=== PATIENT | female | born 1945 | race Caucasian/White ===

== ENCOUNTER 2019-08-15 09:11 | Outpatient (CLI) | payer MEDICARE, OTHER, SELFPAY ==
--- NOTE | ~2019-08-15 | MM_ITS ---
EXAMINATION: MM post biopsy invasive LT HISTORY: Status post ultrasound-guided biopsy of 12:00 left breast mass TECHNIQUE: Additional 3-D tomosynthesis images of were performed and synthetic 2-D images were genera bernadette. CAD analysis was submitted and interpreted. COMPARISON: 08/15/2019ultrasound-guided left breast biopsy FINDINGS: A ribbon biopsy marker is noted at the anteroinferior aspect of an approximately 2 cm upper mid left breast mass. IMPRESSION: 1. Ultrasound-guided biopsy of 12:00 left breast mass 2. Sonographic features are highly suggestive of malignancy. Reviewed, dictated and finalized at location A. FIC REPORTER
--- NOTE | ~2019-08-15 | US_ITS ---
EXAMINATION: US GUIDED NEEDLE BIOPSY DATE: 08/15/2019 11:07 COUPON CLERK INDICATION: 12:00 sonographic irregular shadowing left breast mass. TECHNIQUE AND FINDINGS: The risks and potential benefits of the procedure were discussed with the patient, and written inform ed consent was obtained. Timeout procedure was performed. After sterile preparation of the left breas t, 1% lidocaine was utilized for local anesthesia. A 14G spring-loaded biopsy gun needle was advanced to the edge of the region of interest from a later al approach utilizing sonographic guidance. The lesion was very hard and difficult to penetrate with the biopsy needle. The margins are irregular and there is very prominent posterior shadowing. This le sarita is highly suggestive of malignancy. A total of three tissue core samples were obtained through t he lesion. An Inrad tissue marker clip was then placed at the biopsy site. Hemostasis was achieved. A sterile bandage was applied. The patient tolerated procedure well and there was no evidence of immediate complication. The patien t was given verbal instructions prior to departing from the department. A two view mammogram was perf ormed to document tissue marker clip placement. The tissue samples were submitted to surgical patholo gy for histologic analysis. IMPRESSION: 1. Successful ultrasound guided biopsy of 12:00 left breast mass with biopsy marker placement. Tanya peralta refer to pathology report for histologic analysis. Reviewed, dictated and finalized at Location A. Reviewed, dictated and finalized at location A. ON CLERK IMPRESSION: 1. Successful ultrasound guided biopsy of 12:00 left breast mass with biopsy m cristopher placement. Please refer to pathology report for histologic analysis.
== END 2019-08-15 09:12 | disposition home or self-care (01) ==
LOC: ANHIMG 09:19
PROVIDERS: Visit Provider Surgery
DX: R92.8 Other abnormal and inconclusive findings on diagnostic imaging of breast (principal); Z80.3 Family history of malignant neoplasm of breast
CPT/HCPCS: 19083; 88305; 88342; A4648

== ENCOUNTER 2019-09-13 10:58 | Outpatient (CLI) | payer MEDICARE, OTHER, SELFPAY ==
--- NOTE | 2019-09-13 11:04 | ECG_ITS ---
Measurements Intervals [place] Rate: 65 P: 49 CA: 196 QRS: 10 QRSD: 81 T: 30 QT: 381 QTc: 398 Interpretive Statements SINUS RHYTHM EARLY PRECORDIAL R/S TRANSITION BASELINE ARTIFACT- I, II, III, AVR, AVL, AVF BORDERLINE ECG Electronically Signed On 09-13-2019 11:25:46 CDT by Janes Calderon D.O.
== END 2019-09-13 10:59 | disposition home or self-care (01) ==
LOC: ANHSURGERY 11:04
PROVIDERS: PCP Family Medicine; Visit Provider Surgery
DX: I10 Essential (primary) hypertension (principal); R94.31 Abnormal electrocardiogram [ECG] [EKG]
CPT/HCPCS: 93005

== ENCOUNTER 2019-10-12 01:25 | Day surgery (SDC) | payer MEDICARE, OTHER, SELFPAY ==
[2019-09-09 16:45] VITALS: BMI 27.3
--- NOTE | 2019-09-15 11:56 | PC.NURSE ---
STATES NO CHANGE IN HEALTH HX FROM 09/09/19
[2019-10-05 14:11] VITALS: BMI 27.3
--- NOTE | 2019-10-05 14:12 | PC.NURSE ---
SPOKE TO PT 10/05/19 STATES NO CHANGE IN HEALTH HX
--- NOTE | 2019-10-11 10:42 | PM.SD ---
Same Day Admit/Disch: HPI History of Present Illness Chief complaint: Left Breast CA Narrative: Mary Lou Patel is a 74 year old female Who was found on imaging in July to have a left breast solid nodule near of breast cyst at the 12 o'clock position. On August 15 she underwent ultrasound-guided left breast biopsy. The path on this showed well differentiated invasive lobular carcinoma. The patient has a strong family history of breast cancer in her sister and her grandmother. The patient's mother had colon cancer and her daughter of cervical cancer. She is taken to surgery now for left breast lumpectomy after wire localization as well as left axillary sentinel lymph node biopsy. [facility] Past Medical History Medical History GERD (gastroesophageal reflux disease) High cholesterol History of cardiac murmur History of lung disease History of thyroid disease HTN (hypertension) Surgical History Surgical History H/O colonoscopy H/O endoscopy H/O lumpectomy right breast H/O tubal ligation History of carpal tunnel surgery History of cholecystectomy History of esophageal dilatation Family History Family History Sibling Family history of malignant neoplasm of breast Cerebrovascular accident Father Hypertension Cerebrovascular accident Kidney failure Mother Colon cancer Grandparent Breast cancer Other Carcinoma of colon Social History Social History Smoking status: Never smoker Alcohol intake: never Substance use: never Gender identity (if verbalized by the patient): Female Same Day Admit/Disch: Med Pre-admit Medications Home Medications Medication Instructions Recorded Confirmed Type Saccharomyces boulardii 250 mg 250 mg PO BID 07/26/19 10/12/19 History capsule alprazolam 0.5 mg tablet 0.5 mg PO DAILY PRN 07/26/19 10/12/19 History levothyroxine 100 mcg tablet 100 mcg PO DAILY 07/26/19 10/12/19 History lisinopril 10 mg tablet 10 mg PO HS 07/26/19 10/12/19 History loratadine 10 mg capsule 10 mg PO DAILY 07/26/19 10/12/19 History metoprolol succinate 50 mg 50 mg PO HS 07/26/19 10/12/19 History tablet,extended release 24 hr omeprazole 20 mg capsule,delayed 40 mg PO DAILY 07/26/19 10/12/19 History release psyllium husk 0.4 gram capsule 0.4 gm PO DAILY 07/26/19 10/12/19 History aspirin 81 mg PO DAILY 09/09/19 10/12/19 History hydrocodone-acetaminophen 1 - 2 tablet PO Q6H PRN #10 tablet 10/12/19 Rx ibuprofen 600 mg PO Q6H PRN #14 tablet 10/12/19 Rx Exam Const: General: comfortable, no acute distress, alert and awake HENMT: Head: normocephalic and atraumatic Mouth: Yes Normal oral and palatal mucosa present Eyes: Conjunctivae: conjunctivae normal Pupils: Equal, round and reactive pupils present EOM: EOMs intact bilaterally Neck: Neck: normal visual inspection, no lymphadenopathy and nontender Chest: Breast/axilla inspection: normal inspection of the axillae and abnormal inspection of the breast ( Upper outer quadrant scar right breast) Breast/axilla palpation: normal palpation of the breasts and normal palpation of the axillae Resp: Effort & Inspection: normal respiratory effort Auscultation: clear to auscultation bilaterally Cardio: Rate: regular rate Rhythm: regular rhythm Heart sounds: no gallops, no murmurs and no rubs GI: Inspection: non-distended GI Palp: Yes Soft to palpation, No Tenderness to palpation present (GI), No Hepatomegaly present and No Splenomegaly present Skin: Lesions: no lesions Rashes: no rashes Neuro: General: no focal motor deficits and CN's II-XI intact bilaterally Cranial nerves: Yes Equal, round and reactive pupils present, Yes Bilaterally intact EOM present, Yes facial symmetry and Yes Midline tongue present
[2019-10-12] VITALS (8 sets, daily range): BP systolic 123–146; BP diastolic 54–72; PULSE 57–66; RESP 13–17; TEMP 36.3; O2SAT 96–100
--- NOTE | ~2019-10-12 | NM_ITS ---
NM sentinel node inject only DATE: 10/12/2019 11:28 INDICATION: Tererro node localization for breast cancer surgery TECHNIQUE: The purpose of the procedure was explained to the patient. The patient verbalized underst anding and gave consent. Following sterile preparation of the areolar and periareolar area, 4 separate equally divided doses t otaling cumulative 1.103 mCi.99 Tc Lymphoseek were injected subcutaneously at 12, 3, 6 and 9 o'clock positions. The patient tolerated the procedure well, without complaint. IMPRESSION: Pre-operative radioactive Lymphoseek subcutaneous [place]-areolar injections for operative s entinel node localization Reviewed, dictated and finalized at Location A. Reviewed, dictated and finalized at location A. IMPRESSION: Pre-operative radioactive Lymphoseek subcutaneous [place]-areolar inje ctions for operative sentinel node localization
--- NOTE | ~2019-10-12 | MM_ITS ---
MM surgical specimen LT DATE: 10/12/2019 12:28 INDICATION: Surgical excision of biopsy marker TECHNIQUE: Single noncompression mammographic exposure of surgical soft tissue specimen COMPARISON: 08/15/2019 left diagnostic post biopsy mammogram FINDINGS: The radiopaque biopsy marker is present within the specimen IMPRESSION: Tissue. Successful surgical excision of radiopaque biopsy marker Reviewed, dictated and finalized at Location A. Reviewed, dictated and finalized at location A.
--- NOTE | ~2019-10-12 | MM_ITS ---
MM needle loc LT DATE: 10/12/2019 08:37 INDICATION: Preoperative wire localization of biopsy marker in upper mid aspect of left breast TECHNIQUE: The purpose of the procedure, technique and potential competitions were discussed with the patient. The patient verbalized understanding and gave consent. Timeout procedure confirmed proper patient and procedure and sidedness. The left breast was placed in compression with biopsy grid apparatus over the medial aspect of the le ft breast, with the left breast in mediolateral position. The skin was prepared with sterile Betadine solution. 1% lidocaine local anesthetic was administered to the skin. A 7 cm [place] Mammalok needle w as introduced into the breast and directed toward the biopsy marker using biopsy grid coordinates. Lewis bsequent CC projection was exposed to confirm needle depth. The needle was adjusted. Once at the prop er position and depth, the wire was engaged through the tip of the needle and the needle was withdraw n. The patient was very cooperative and tolerated the procedure very well, without complaint or apparent complication. COMPARISON: 08/15/2019 postbiopsy left mammogram IMPRESSION: Preoperative mammographically guided wire localization of radiopaque biopsy marker in upp er mid left breast Reviewed, dictated and finalized at Location A. Reviewed, dictated and finalized at location A. IMPRESSION: Preoperative mammographically guided wire localization of radiopaqu e biopsy marker in upper mid left breast
[2019-10-12] MEDS: LACTATED RINGERS 1,000 ML 30 ML IV CONT ×2 (07:25→13:06)
--- NOTE | 2019-10-12 08:12 | SUR.PREOP ---
0730 pt to needle loc
--- NOTE | 2019-10-12 08:37 | WPDANESEPPF ---
Anes - Initial Pre Proc Eval Procedure: Operation Date: 10/12/19 10:30 Proposed Procedures p Left Breast Lumpectomy, Left Axillary [place] Lymph Node Biopsy, - Ian Chadwick MD s Left Breast Ultrasound And/Or Mammogram Guided Needle Localization - Ian Chadwick MD Date/Time: 10/12/19 08:37 Surgeon: Ian Chadwick MD Pre Op Diagnosis: Left Breast CA Patient Data Age: 74 Gender: F Height: 5 ft 5 in Weight: 77 kg Last Vital Signs Temp 36.3 C L 10/12/19 08:05 Pulse 65 10/12/19 08:05 Resp 16 10/12/19 08:05 BP 128/72 10/12/19 08:05 Pulse Ox 96 10/12/19 08:05 Allergies Allergy/AdvReac Type Severity Reaction Status Date / Time darifenacin [From Enablex] Allergy Unknown vaginal Verified 10/05/19 14:08 itching gemfibrozil Allergy Unknown leg aches Verified 10/05/19 14:08 pseudoephedrine Allergy Unknown high heart Verified 10/05/19 14:08 [From Sudafed] rate Home Medications Medication Instructions Recorded Confirmed Type Saccharomyces boulardii 250 mg 250 mg PO BID 07/26/19 10/12/19 History capsule alprazolam 0.5 mg tablet 0.5 mg PO DAILY PRN 07/26/19 10/12/19 History levothyroxine 100 mcg tablet 100 mcg PO DAILY 07/26/19 10/12/19 History lisinopril 10 mg tablet 10 mg PO HS 07/26/19 10/12/19 History loratadine 10 mg capsule 10 mg PO DAILY 07/26/19 10/12/19 History metoprolol succinate 50 mg 50 mg PO HS 07/26/19 10/12/19 History tablet,extended release 24 hr omeprazole 20 mg capsule,delayed 40 mg PO DAILY 07/26/19 10/12/19 History release psyllium husk 0.4 gram capsule 0.4 gm PO DAILY 07/26/19 10/12/19 History aspirin 81 mg PO DAILY 09/09/19 10/12/19 History Patient hx anesthesia problems: none Family hx anesthesia problems: post op nausea/vomiting PMFSH Past Medical History Medical History GERD (gastroesophageal reflux disease) High cholesterol History of cardiac murmur History of lung disease History of thyroid disease HTN (hypertension) Surgical History Surgical History H/O colonoscopy H/O endoscopy H/O lumpectomy right breast H/O tubal ligation History of carpal tunnel surgery History of cholecystectomy History of esophageal dilatation Family History Family History Sibling Family history of malignant neoplasm of breast Cerebrovascular accident Father Hypertension Cerebrovascular accident Kidney failure Mother Colon cancer Grandparent Breast cancer Other Carcinoma of colon Social History Social History Smoking status: Never smoker Alcohol intake: never Substance use: never Gender identity (if verbalized by the patient): Female Anes - Eval Final PreProcedure Day of Procedure 10/12/19 08:37 Patient weight: overweight Heart: regular rate and rhythm Lungs: decreased breath sounds Airway: Mallampati scale class II Neurological: alert and oriented Last oral intake: >/= 8 hours ASA classification: III Emergent: no Anesthetic plan: proceed Anesthesia type and monitoring: general LMA and standard monitoring Informed Consent: The patient's anesthetic plan and its attendant risks and benefits were discussed with the patient/family/POA. Questions were solicited and answers provided to the satisfaction of the patient/family/POA.
--- NOTE | 2019-10-12 09:50 | SUR.PREOP ---
0838 update provided to daughter per phone [phone] Farrukh livingston for nuc med at 1000 0935 pt returned from needle loc
--- NOTE | 2019-10-12 10:32 | SUR.PREOP ---
1035 pt returned from nuc med/comfort measures provided/pt request daughter be given update when she goes to surgery.
--- NOTE | 2019-10-12 10:45 | WPDHPUPDATE1 ---
History and Physical Update Update Date/Time: 10/12/19 10:45 History and Physical has been reviewed, including an updated exam of the patient. There are NO changes in the patient's condition. Risks, benefits, and alternatives have been discussed and questions answered. Patient agrees to proceed with procedure.
[2019-10-12] MEDS: ceFAZolin 2 GM/D5W 50 ML 2 GM/50 ML BAG IVPB (10:56)
[2019-10-12] MEDS: BUPIVACAINE/EPINEPHRINE 0.5% 10 ML VIAL 20 ML INFILTRATE (11:14)
[2019-10-12] MEDS: ISOSULFAN BLUE 1% INJ 5 ML VIAL SUB-Q (12:38)
--- NOTE | 2019-10-12 14:17 | SUR.PHASEII ---
1417 SPOKE WITH DAUGHTER NANCI PER PHONE- UPDATE GIVEN.
--- NOTE | 2019-10-12 18:01 | PM.PROC ---
Procedure Note - Detailed Date of procedure: 10/12/19 Pre-op diagnosis: invasive lobular carcinoma left breast Invasive lobular carcinoma of the left breast Post-op diagnosis: same Procedure performed: wire localization left breast lumpectomy, left axillary sentinel node biopsy Description of procedure: the patient went to x-ray prior to surgery for wire localization. She also had injection of radioisotope under the left nipple in x-ray. She was then taken to the operating room and induced into general anesthesia. Left breast and axilla were prepped and draped taking care not to disturb the localizing wire. I injected Isosulfan Blue dye under the left nipple and then performed gentle breast massaged for 2-3 minutes. The navigator was then used to locate the likely area of the sentinel nodes. I marked a hairline incision on the left axilla. The incision was then made and dissection was carried through the subcutaneous. We dissected down into the axillary fat. A sizable lymph node was immediately evident which had dye stained lymphatics associated with it. Recheck with the navigator showed that it gave a very high isotope emission as well. I dissected this lymph node free from the surrounding axillary tissue. Clips were used for lymphatics. There was some bleeding located deep to the node. This was controlled with cautery. Eventually the lymph node was completely excised. It was rechecked with the navigator and again showed very high isotope emission. I sent this dye stained, isotope emitting node as sentinel lymph node 1. I then returned to the left axilla and searched for additional axillary lymph nodes. Additional dissection was performed and thorough searching using the navigator as well as palpation was carried out. No it additional sentinel lymph nodes were found. I then inspected the wound and achieved good hemostasis. The wound was closed in layers with 3 0 Monocryl suture. The skin was closed with subcuticular interrupted 3 0 Monocryl skin suture. The axilla was then quarantined with laparotomy sponges and a blue towel. We turned our attention to the left breast which had the localizing wire exiting in the upper inner quadrant. The proposed incision was marked in the midline just above the areolar margin. Local anesthetic was infiltrated here using 0.5% Marcaine with epinephrine. Incision was made and dissection through the breast tissue carried out. After dissecting about 1.5 cm deep, I dissected over to the localizing wire. After finding the wire, I pulled the wire through the skin and out the lumpectomy wound. I then dissected a bit deeper and felt I was in proximity to the malignant lesion. I excised the tissue surrounding the distal 4th of the localizing wire staying away from the tumor. There was a lot of fibrous firm breast tissue but I did not see any tissue suspicious for malignancy. I excised this tissue with the localizing wire and excised deep to the hook of the wire. The lumpectomy specimen with the wire in place was removed. It was maintained in its orientation. I used several different colors suture to kash the various margins on the lumpectomy specimen. The sutures were labeled appropriately for the pathologist to orient the specimen. The lumpectomy specimen with the wire was then placed on the grid. Mammogram of the specimen showed that the ribbon clip was in the center of the specimen. I then went ahead and re-excised the margins in all 6 dimensions of the lumpectomy wound. Each margin was labeled appropriately and had a suture marking its inner aspect. These 6 margin excisions with the lumpectomy specimen and the 1 sentinel lymph node made a total of 8 specimen for this procedure. The resultant lumpectomy wound was then made hemostatic with the cautery. The wound was closed in layers with interrupted 3 0 Monocryl skin suture. The skin was closed with subcuticular interrupted 3 0 Monocryl skin suture. Finally the
== END 2019-10-12 15:00 | disposition home or self-care (01) ==
LOC: ANHSURGERY 01:28
PROVIDERS: PCP Family Medicine; Visit Provider Surgery
PROC: (CPT 19301; principal; 2019-10-12 10:30)
PROC: (CPT 19301; 2019-10-12 10:30)
DX: C50.912 Malignant neoplasm of unspecified site of left female breast (principal); Z80.3 Family history of malignant neoplasm of breast; I10 Essential (primary) hypertension; K21.9 Gastro-esophageal reflux disease without esophagitis; E78.00 Pure hypercholesterolemia, unspecified; E03.9 Hypothyroidism, unspecified; J98.4 Other disorders of lung; Z79.82 Long term (current) use of aspirin
CPT/HCPCS: 19301; 38525; 19281; 38792; 76098; 88305; 88307; 88342; A9270; A9520; C1713; C1769; J0690; J1100; J2405; J2704; J3010; J7120

== ENCOUNTER 2019-11-11 09:25 | Outpatient (CLI) | payer MEDICARE, OTHER, SELFPAY ==
--- NOTE | ~2019-11-11 | MR_ITS ---
EXAMINATION: MR breast BI wo/w con INDICATION: Malignant neoplasm of the upper outer quadrant of the left breast, recent left-sided lump ectomy TECHNIQUE: Axial VIBRANT pre and dynamic post contrast, Sagittal VIBRANT post contrast, Axial T2 STIR ASSET COMPARISON: None CONTRAST: Multihance, 15 cc BREAST COMPOSITION: Heterogeneous fibroglandular tissue FINDINGS: RIGHT BREAST: There is moderate background parenchymal enhancement. There is an approximately 1.6 x 0 .7 cm bilobed mass in the middle third of the central, slightly inner breast 5 cm from the nipple whi ch demonstrates rapid enhancement with washout kinetics. There is also a 0.9 x 0.6 cm mass in the mid dle third of the slightly lower, slightly outer central breast at the 8:00 location 5.5 cm from the n ipple which demonstrates rapid enhancement with washout kinetics. LEFT BREAST: There is moderate background parenchymal enhancement. There are changes of recent lumpe ctomy and axillary lymph node dissection in the left breast. An approximately 8.5 x 5.9 cm seroma/hem atoma is seen in the central breast. Subtle enhancement surrounding the fluid collection is felt to b e postsurgical in nature without discrete suspicious enhancement identified. IMPRESSION: 1: Right breast masses as described above. Right diagnostic mammogram with possible ultrasound are r ecommended. 2. Lumpectomy changes in the left breast with postoperative seroma/hematoma but no definite suspiciou s enhancement. BI-RADS Category 0: Incomplete: Needs additional imaging evaluation. Reviewed, dictated and finalized at location A. IMPRESSION: 1: Right breast masses as described above. Right diagnostic mammogram with pos sible ultrasound are recommended. 2. Lumpectomy changes in the left breast with postoperative seroma/hematoma but no definite suspicious enhancement. BI-RADS Category 0: Incomplete: Needs additional imaging evaluation.
[2019-11-11 09:57] LABS: Estimated Glomerular Filt Rate > 60
== END 2019-11-11 09:26 | disposition home or self-care (01) ==
LOC: ANHIMG 09:28
PROVIDERS: PCP Family Medicine; Visit Provider Internal Medicine Hematology & Oncology
DX: C50.412 Malignant neoplasm of upper-outer quadrant of left female breast (principal); Z17.0 Estrogen receptor positive status [ER+]; Z79.899 Other long term (current) drug therapy
CPT/HCPCS: 36415; 77049; A9577; C8908

== ENCOUNTER 2019-11-22 11:17 | Outpatient (CLI) | payer MEDICARE, OTHER, SELFPAY ==
--- NOTE | ~2019-11-22 | MMUS_ITS ---
EXAMINATION: MM diagnostic marquis RT w mana, US breast RT complete HISTORY: 11/11/2019 and lumbar breast examination report of right breast masses: 1. 1.6 x 0.7 cm bilobed mass in middle third of the central slightly inner breast 5 cm from nipple 2. 0.9 x 0.6 cm mass in middle third of slightly lower slightly outer central breast at 8:00 5.5 cm f rom nipple TECHNIQUE: ML, MLO and cc full field and spot 3-D tomosynthesis images of the right breast were perfo rmed and synthetic 2-D images were generated. CAD analysis was submitted and interpreted. High resolu tion complete right breast ultrasound was performed. COMPARISON: 11/11/2019 MR breast examination 07/20/2019 bilateral digital mammogram BREAST PARENCHYMAL COMPOSITION: The breasts are heterogeneously dense, which may obscure small masses . FINDINGS: MAMMOGRAPHIC FINDINGS: No reproducible mass or architectural distortion or any malignant calcification, skin thickening or r etraction is evident mammographically. ULTRASOUND: 8:00 2 cm from nipple: There is an irregular hypoechoic up to 9 x 14.4 mm mass with some abnormal vas cularity and some posterior shadowing. This is suspicious. Ultrasound-guided biopsy is recommended. IMPRESSION: 1. 8:00 irregular mass, suspicious for malignancy 2. Ultrasound-guided biopsy of 8:00 mass is recommended. BI-RADS category 4, suspicious findings. Dr. Aguilar telephoned the report and ultrasound guided biopsy recommendation to Dr. Rosey Cruz on at 1245 hours Reviewed, dictated and finalized at location A. IMPRESSION: 1. 8:00 irregular mass, suspicious for malignancy 2. Ultrasound-guided biopsy of 8:00 mass is recommended. BI-RADS category 4, suspicious findings. Dr. Aguilar telephoned the report and ultrasound guided biopsy recommendation to Zack Cruz on 11/22/2019 at 1245 hours
== END 2019-11-22 11:18 | disposition home or self-care (01) ==
PROVIDERS: PCP Family Medicine; Visit Provider Internal Medicine Hematology & Oncology
DX: N63.10 Unspecified lump in the right breast, unspecified quadrant (principal)
CPT/HCPCS: 76641; 77061; 77065; G0279

== ENCOUNTER 2019-12-01 08:55 | Outpatient (CLI) | payer MEDICARE, OTHER, SELFPAY ==
--- NOTE | ~2019-12-01 | MMUS_ITS ---
EXAMINATION: US breast biopsy RT w image, MM post biopsy invasive RT DATE: 12/01/2019 10:08 (accession [id number]), 12/01/2019 10:14 (accession [id number]) INDICATION: Patient with history of left breast cancer with abnormal postoperative MRI demonstrating suspicious right breast masses. Subsequent diagnostic mammogram and ultrasound identified correlate f or biopsy. Ultrasound-guided core biopsy is requested to evaluate for malignancy. TECHNIQUE AND FINDINGS: Pulmonary ultrasound demonstrated the mass described at the 8:00 location 2 cm from the nipple with s ome contiguous extension of the mass towards the skin surface. The risks and potential benefits of th e procedure were discussed with the patient including bleeding, infection, and nondiagnostic specimen . A time out was performed. The skin of the right breast was prepared and draped in usual sterile fas hion. 1% lidocaine was used for superficial anesthesia. 1% lidocaine with epinephrine was used for de ep anesthesia. A vacuum-assisted biopsy gun needle was advanced through to the outer edge of the region of interest from an inferomedial approach utilizing sonographic guidance. A total of four tissue core samples wer e obtained through the lesion. Three samples are taken in the area seen on recent ultrasound in the f ourth core was obtained in the portion of the mass extending towards the skin surface. A tissue marke r clip was then placed at the biopsy site. Hemostasis was achieved. A sterile bandage was applied. The patient tolerated procedure well and there was no evidence of immediate complication. The patient was given verbal instructions to return to the Emergency Department in the event of severe breast pa in or rapid breast enlargement. A two view right breast mammogram was obtained to document tissue mar ker clip placement. IMPRESSION: 1. Successful ultrasound-guided vacuum-assisted biopsy of right breast mass with tissue marker placem ent. Reviewed, dictated and finalized at location A. IMPRESSION: 1. Successful ultrasound-guided vacuum-assisted biopsy of right breast mass wit h tissue marker placement.
== END 2019-12-01 08:56 | disposition home or self-care (01) ==
PROVIDERS: PCP Family Medicine; Visit Provider Surgery
DX: N63.10 Unspecified lump in the right breast, unspecified quadrant (principal); R92.8 Other abnormal and inconclusive findings on diagnostic imaging of breast
CPT/HCPCS: 19083; 88305; A4648

== ENCOUNTER 2020-02-03 09:29 | Outpatient (CLI) | payer MEDICARE, OTHER, SELFPAY ==
[2020-02-03 09:45] LABS: Basophils Percent Auto 0.9 % (0.2-1.2); Eosinophils Absolute Auto 0.1 K/mm3 (0-0.3); Eosinophils Percent Auto 3.1 % (0-4.4); Hematocrit 41.9 % (37.0-47.0); Hemoglobin 13.5 g/dL (12.0-15.0); Immature Granulocyte Absolute 0.01 K/mm3 (0.00-0.031); Immature Granulocyte Percent A 0.3 % (0-0.5); Lymphocytes Percent Auto 17.1 % (18.3-44.2); Mean Corpuscular HGB Conc 32.2 g/dl (32-36); Mean Corpuscular Hemoglobin 28.5 pg (26-34); Mean Corpuscular Volume 88.6 fl (80-100); Monocytes Absolute Auto 0.5 K/mm3 (0.1-0.6); Monocytes Percent Auto 14.2 % (2.6-8.5); Neutrophils Absolute Auto 2.3 K/mm3 (1.3-6.7); Neutrophils Percent Auto 64.4 % (45.5-73.1); Platelet Count Result 171 k/mm3 (150-375); Red Blood Count 4.73 M/mm3 (4.2-5.4); White Blood Count 3.5 K/mm3 (4.5-10.0)
[2020-02-03 15:26] LABS: Alanine Aminotransferase 26 U/L (4-35); Albumin Level 3.8 g/dL (3.5-5.1); Alkaline Phosphatase 67 U/L (38-126); Anion Gap 9.2 mmol/L (7-16); Aspartate Amino Transferase 28 U/L (14-36); Bilirubin,Total 0.4 mg/dL (0.2-1.3); Blood Urea Nitrogen 17 mg/dL (7-17); Calcium 9.5 mg/dL (8.4-10.2); Carbon Dioxide 29 mmol/L (22-30); Chloride 104 mmol/L (98-107); Estimated Glomerular Filt Rate > 60; Glucose 93 mg/dL (65-105); Potassium 4.2 mmol/L (3.4-5.0); Sodium 138 mmol/L (137-145)
[2020-02-08 21:20] LABS: CA 27.29 41 U/mL (<38)
== END 2020-02-03 09:30 | disposition home or self-care (01) ==
PROVIDERS: PCP Family Medicine; Visit Provider Internal Medicine Hematology & Oncology
DX: C50.412 Malignant neoplasm of upper-outer quadrant of left female breast (principal); Z17.0 Estrogen receptor positive status [ER+]
CPT/HCPCS: 36415; 80053; 85025; 86300

== ENCOUNTER 2020-03-09 07:59 | Outpatient (CLI) | payer MEDICARE, OTHER, SELFPAY ==
--- NOTE | ~2020-03-09 | CT_ITS ---
EXAMINATION: CT chest high resolution wo co DATE: 03/09/2020 08:26 INDICATION: Interstitial lung disease, history of breast cancer TECHNIQUE: Computed tomography (CT) of the chest was performed without intravenous contrast. The dose -length product (DLP) was 189.39 mGy-cm. Automated exposure control and iterative reconstruction tech nique were employed. COMPARISON: None FINDINGS: Calcified pulmonary nodules and calcified bilateral hilar and mediastinal lymph nodes are c onsistent with old granulomatous disease. There are subpleural groundglass opacities with a dependent and lower lung zone predominance. No pleural effusion or pneumothorax is identified. Lumpectomy and radiation changes are noted in the left breast. There appears to be a 4.2 cm postoperative seroma of the left breast. No pathologically enlarged thoracic lymph nodes are identified. The heart size is no rmal. There is an approximately 2.0 x 1.6 cm lesion in the left proximal humerus which demonstrates s tippled calcification and possible chondroid matrix. IMPRESSION: 1. Subpleural groundglass opacities in the lungs, likely combination of atelectasis and mild intersti tial lung disease in a pattern of nonspecific interstitial pneumonia (NSIP). 2. Bone lesion in the left proximal humerus with CT features suggestive of an enchondroma. However, g iven history of breast cancer and variable appearance of osseous metastatic disease, bone scan is rec ommended. Reviewed, dictated and finalized at location A. IMPRESSION: 1. Subpleural groundglass opacities in the lungs, likely combination of atelect asis and mild interstitial lung disease in a pattern of nonspecific interstitia l pneumonia (NSIP). 2. Bone lesion in the left proximal humerus with CT features suggestive of an e nchondroma. However, given history of breast cancer and variable appearance of osseous metastatic disease, bone scan is recommended.
== END 2020-03-09 08:00 | disposition home or self-care (01) ==
LOC: ANHIMG 08:02
PROVIDERS: PCP Family Medicine; Visit Provider Internal Medicine Critical Care Medicine
DX: J84.9 Interstitial pulmonary disease, unspecified (principal); R91.8 Other nonspecific abnormal finding of lung field
CPT/HCPCS: 71250

== ENCOUNTER 2020-04-10 10:30 | Outpatient (CLI) | payer MEDICARE, OTHER, SELFPAY ==
[2020-04-10 10:44] LABS: Basophils Percent Auto 0.9 % (0.2-1.2); Eosinophils Absolute Auto 0.1 K/mm3 (0-0.3); Eosinophils Percent Auto 3.2 % (0-4.4); Hematocrit 41.8 % (37.0-47.0); Hemoglobin 13.4 g/dL (12.0-15.0); Immature Granulocyte Absolute 0.02 K/mm3 (0.00-0.031); Immature Granulocyte Percent A 0.5 % (0-0.5); Lymphocytes Absolute Auto 1.03 K/mm3 (0.9-3.2); Lymphocytes Percent Auto 23.9 % (18.3-44.2); Mean Corpuscular HGB Conc 32.1 g/dl (32-36); Mean Corpuscular Hemoglobin 28.3 pg (26-34); Mean Corpuscular Volume 88.4 fl (80-100); Mean Platelet Volume 9.6 fl (7.4-10.4); Monocytes Absolute Auto 0.5 K/mm3 (0.1-0.6); Monocytes Percent Auto 11.6 % (2.6-8.5); Neutrophils Absolute Auto 2.6 K/mm3 (1.3-6.7); Neutrophils Percent Auto 59.9 % (45.5-73.1); Platelet Count Result 186 k/mm3 (150-375); Red Blood Count 4.73 M/mm3 (4.2-5.4); Red Cell Distribution Width 12.9 % (11.5-14.5); White Blood Count 4.3 K/mm3 (4.5-10.0)
[2020-04-10 12:14] LABS: Alanine Aminotransferase 21 U/L (4-35); Albumin Level 4.1 g/dL (3.5-5.1); Alkaline Phosphatase 70 U/L (38-126); Anion Gap 5 mmol/L (8-16); Aspartate Amino Transferase 28 U/L (14-36); Bilirubin,Total 0.5 mg/dL (0.2-1.3); Blood Urea Nitrogen 18 mg/dL (7-17); Calcium 9.6 mg/dL (8.4-10.2); Carbon Dioxide 32 mmol/L (22-30); Chloride 104 mmol/L (98-107); Estimated Glomerular Filt Rate > 60; Glucose 102 mg/dL (65-105); Potassium 4.3 mmol/L (3.4-5.0); Sodium 141 mmol/L (137-145)
[2020-04-14 06:52] LABS: CA 15-3 24 U/mL (<32)
== END 2020-04-10 10:31 | disposition home or self-care (01) ==
PROVIDERS: PCP Family Medicine; Visit Provider Internal Medicine Hematology & Oncology
DX: C50.412 Malignant neoplasm of upper-outer quadrant of left female breast (principal); Z17.0 Estrogen receptor positive status [ER+]
CPT/HCPCS: 36415; 80053; 85025; 86300

== ENCOUNTER 2020-04-16 08:01 | Outpatient (CLI) | payer MEDICARE, OTHER, SELFPAY ==
--- NOTE | ~2020-04-16 | NM_ITS ---
EXAMINATION: NM bone scan whole body DATE: 04/16/2020 12:44 INDICATION: Malignant neoplasm of upper outer quadrant of left breast. TECHNIQUE: 24.9 mCi Tc-99m HDP was administered intravenously. Delayed whole-body scintigrams were o btained. COMPARISON: Chest CT 03/09/2020 FINDINGS: There is joint-centered increased activity in the knees, feet, shoulders, sternoclavicular joints, and hands, consistent with osteoarthritis. There is increased activity in proximal left humer us correlating with the lesion by CT. IMPRESSION: 1. Focal increased activity in proximal left humerus correlating with a lesion with chondroid matrix by CT, consistent with an enchondroma. Reviewed, dictated and finalized at location A.
== END 2020-04-16 08:02 | disposition home or self-care (01) ==
PROVIDERS: PCP Family Medicine; Visit Provider Internal Medicine Hematology & Oncology
DX: C50.412 Malignant neoplasm of upper-outer quadrant of left female breast (principal); Z17.0 Estrogen receptor positive status [ER+]; M89.9 Disorder of bone, unspecified
CPT/HCPCS: 78306; A9561

== ENCOUNTER 2020-07-04 08:07 | Outpatient (CLI) | payer MEDICARE, OTHER, SELFPAY ==
[2020-07-04 08:32] LABS: Basophils Percent Auto 1.1 % (0.2-1.2); Eosinophils Absolute Auto 0.2 K/mm3 (0-0.3); Eosinophils Percent Auto 4.2 % (0-4.4); Hematocrit 41.5 % (37.0-47.0); Hemoglobin 13.5 g/dL (12.0-15.0); Immature Granulocyte Absolute 0.01 K/mm3 (0.00-0.031); Immature Granulocyte Percent A 0.3 % (0-0.5); Lymphocytes Absolute Auto 1.09 K/mm3 (0.9-3.2); Lymphocytes Percent Auto 28.8 % (18.3-44.2); Mean Corpuscular HGB Conc 32.5 g/dl (32-36); Mean Corpuscular Hemoglobin 28.8 pg (26-34); Mean Corpuscular Volume 88.7 fl (80-100); Mean Platelet Volume 9.6 fl (7.4-10.4); Monocytes Absolute Auto 0.5 K/mm3 (0.1-0.6); Monocytes Percent Auto 13.5 % (2.6-8.5); Neutrophils Percent Auto 52.1 % (45.5-73.1); Platelet Count Result 178 k/mm3 (150-375); Red Blood Count 4.68 M/mm3 (4.2-5.4); Red Cell Distribution Width 12.6 % (11.5-14.5); White Blood Count 3.8 K/mm3 (4.5-10.0)
[2020-07-04 12:28] LABS: Alanine Aminotransferase 22 U/L (4-35); Albumin Level 3.7 g/dL (3.5-5.1); Alkaline Phosphatase 69 U/L (38-126); Anion Gap 4 mmol/L (8-16); Aspartate Amino Transferase 30 U/L (14-36); Bilirubin,Total 0.5 mg/dL (0.2-1.3); Blood Urea Nitrogen 19 mg/dL (7-17); Calcium 9.4 mg/dL (8.4-10.2); Carbon Dioxide 32 mmol/L (22-30); Chloride 103 mmol/L (98-107); Estimated Glomerular Filt Rate > 60; Glucose 96 mg/dL (65-105); Potassium 4.3 mmol/L (3.4-5.0); Sodium 139 mmol/L (137-145)
[2020-07-10 11:06] LABS: CA 15-3 21 U/mL (<32)
== END 2020-07-04 08:08 | disposition home or self-care (01) ==
LOC: ANHLAB 08:09
PROVIDERS: PCP Family Medicine; Visit Provider Internal Medicine Hematology & Oncology
DX: C50.412 Malignant neoplasm of upper-outer quadrant of left female breast (principal); Z17.0 Estrogen receptor positive status [ER+]
CPT/HCPCS: 36415; 80053; 85025; 86300

== ENCOUNTER 2020-08-06 11:29 | Outpatient (CLI) | payer MEDICARE, OTHER, SELFPAY ==
--- NOTE | ~2020-08-06 | MM_ITS ---
EXAMINATION: MM diagnostic marquis BI w mana HISTORY: Diagnostic bilateral mammogram, history of left breast cancer and benign right breast biopsy TECHNIQUE: Craniocaudal, mediolateral, and mediolateral oblique 3-D tomosynthesis images of the breas ts were performed and synthetic 2-D images were generated. CAD analysis was submitted and interpreted . COMPARISON: 11/22/2019, 07/20/2019, 07/08/2018 BREAST PARENCHYMAL COMPOSITION: The breasts are heterogeneously dense, which may obscure small masses . FINDINGS: There are lumpectomy changes in the left breast including a persistent but decreasing hemat shanita/seroma in the central breast. Left breast skin thickening is consistent with radiation change. No suspicious mass, calcification, or architectural distortion are identified. A biopsy marker is noted in the right breast. There is no suspicious mass, calcification or architectural distortion of the r ight breast. IMPRESSION: 1. No mammographic evidence of malignancy. 2. Recommend routine screening mammography in one year. BI-RADS Category 2: Benign finding(s). Reviewed, dictated and finalized at location A. COUNSELOR
== END 2020-08-06 11:30 | disposition home or self-care (01) ==
LOC: ANHIMG 11:30
PROVIDERS: PCP Family Medicine; Visit Provider Internal Medicine Hematology & Oncology
DX: C50.412 Malignant neoplasm of upper-outer quadrant of left female breast (principal); Z17.0 Estrogen receptor positive status [ER+]
CPT/HCPCS: 77062; 77066; G0279

== ENCOUNTER 2020-10-02 09:15 | Outpatient (CLI) | payer MEDICARE, OTHER, SELFPAY ==
[2020-10-02 09:29] LABS: Basophils Percent Auto 1.2 % (0.2-1.2); Eosinophils Absolute Auto 0.1 K/mm3 (0-0.3); Hematocrit 40.6 % (37.0-47.0); Hemoglobin 13.2 g/dL (12.0-15.0); Immature Granulocyte Absolute 0.01 K/mm3 (0.00-0.031); Immature Granulocyte Percent A 0.3 % (0-0.5); Lymphocytes Absolute Auto 1.03 K/mm3 (0.9-3.2); Lymphocytes Percent Auto 31.3 % (18.3-44.2); Mean Corpuscular HGB Conc 32.5 g/dl (32-36); Mean Corpuscular Hemoglobin 28.9 pg (26-34); Mean Corpuscular Volume 88.8 fl (80-100); Mean Platelet Volume 9.9 fl (7.4-10.4); Monocytes Absolute Auto 0.5 K/mm3 (0.1-0.6); Monocytes Percent Auto 14.6 % (2.6-8.5); Neutrophils Absolute Auto 1.6 K/mm3 (1.3-6.7); Neutrophils Percent Auto 48.6 % (45.5-73.1); Platelet Count Result 177 k/mm3 (150-375); Red Blood Count 4.57 M/mm3 (4.2-5.4); Red Cell Distribution Width 12.7 % (11.5-14.5); White Blood Count 3.3 K/mm3 (4.5-10.0)
[2020-10-02 16:33] LABS: Alanine Aminotransferase 18 U/L (4-35); Albumin Level 4.1 g/dL (3.5-5.1); Alkaline Phosphatase 75 U/L (38-126); Anion Gap 4 mmol/L (8-16); Aspartate Amino Transferase 23 U/L (14-36); Bilirubin,Total 0.4 mg/dL (0.2-1.3); Blood Urea Nitrogen 18 mg/dL (7-17); Calcium 9.5 mg/dL (8.4-10.2); Carbon Dioxide 30 mmol/L (22-30); Chloride 107 mmol/L (98-107); Estimated Glomerular Filt Rate > 60; Glucose 99 mg/dL (65-105); Potassium 4.1 mmol/L (3.4-5.0); Sodium 141 mmol/L (137-145)
[2020-10-05 23:00] LABS: CA 15-3 20 U/mL (<32)
== END 2020-10-02 09:16 | disposition home or self-care (01) ==
LOC: ANHLAB 09:17
PROVIDERS: PCP Family Medicine; Visit Provider Internal Medicine Hematology & Oncology
DX: C50.412 Malignant neoplasm of upper-outer quadrant of left female breast (principal); Z17.0 Estrogen receptor positive status [ER+]
CPT/HCPCS: 36415; 80053; 85025; 86300

== ENCOUNTER 2021-01-28 10:04 | Outpatient (CLI) | payer MEDICARE, OTHER, SELFPAY ==
[2021-01-28 10:31] LABS: Basophils Percent Auto 1.1 % (0.2-1.2); Eosinophils Absolute Auto 0.1 K/mm3 (0-0.3); Eosinophils Percent Auto 3.2 % (0-4.4); Hematocrit 40.2 % (37.0-47.0); Hemoglobin 12.9 g/dL (12.0-15.0); Immature Granulocyte Absolute 0.01 K/mm3 (0.00-0.031); Immature Granulocyte Percent A 0.3 % (0-0.5); Lymphocytes Absolute Auto 0.98 K/mm3 (0.9-3.2); Lymphocytes Percent Auto 26.1 % (18.3-44.2); Mean Corpuscular HGB Conc 32.1 g/dl (32-36); Mean Corpuscular Hemoglobin 28.7 pg (26-34); Mean Corpuscular Volume 89.3 fl (80-100); Mean Platelet Volume 10.2 fl (7.4-10.4); Monocytes Absolute Auto 0.4 K/mm3 (0.1-0.6); Monocytes Percent Auto 10.1 % (2.6-8.5); Neutrophils Absolute Auto 2.2 K/mm3 (1.3-6.7); Neutrophils Percent Auto 59.2 % (45.5-73.1); Platelet Count Result 185 k/mm3 (150-375); Red Cell Distribution Width 13.1 % (11.5-14.5); White Blood Count 3.8 K/mm3 (4.5-10.0)
[2021-01-28 15:58] LABS: Alanine Aminotransferase 15 U/L (4-35); Albumin Level 3.8 g/dL (3.5-5.1); Alkaline Phosphatase 83 U/L (38-126); Anion Gap 7 mmol/L (8-16); Aspartate Amino Transferase 23 U/L (14-36); Bilirubin,Total 0.4 mg/dL (0.2-1.3); Blood Urea Nitrogen 13 mg/dL (7-17); Calcium 9.3 mg/dL (8.4-10.2); Carbon Dioxide 27 mmol/L (22-30); Chloride 108 mmol/L (98-107); Estimated Glomerular Filt Rate > 60; Glucose 97 mg/dL (65-110); Potassium 4.2 mmol/L (3.4-5.0); Sodium 142 mmol/L (137-145)
[2021-02-01 05:51] LABS: CA 15-3 23 U/mL (<32)
== END 2021-01-28 10:05 | disposition home or self-care (01) ==
PROVIDERS: PCP Family Medicine; Visit Provider Internal Medicine Hematology & Oncology
DX: C50.412 Malignant neoplasm of upper-outer quadrant of left female breast (principal); Z17.0 Estrogen receptor positive status [ER+]
CPT/HCPCS: 36415; 80053; 85025; 86300

== ENCOUNTER 2021-02-11 11:22 | Outpatient (CLI) | payer MEDICARE, OTHER, SELFPAY ==
--- NOTE | ~2021-02-11 | MM_ITS ---
EXAMINATION: MM diagnostic marquis LT w mana HISTORY: Recent left breast cancer. Status post lumpectomy. TECHNIQUE: Additional 3-D tomosynthesis images of the left breast were performed and synthetic 2-D im ages were generated. CAD analysis was submitted and interpreted. COMPARISON: Comparison to multiple prior studies sequentially, with oldest reviewed study dated 08/15. BREAST PARENCHYMAL COMPOSITION: Breast composed of scattered areas of fibroglandular density. FINDINGS: There is architectural distortion in the upper central aspect of the left breast, consisten t with recent lumpectomy site. There are punctate calcifications near the surgical site, likely benig n without significant change from prior study. IMPRESSION: 1. Probable benign punctate calcifications near the previous lumpectomy site. 2. Recommend 6 month follow-up diagnostic bilateral mammogram. BI-RADS category 3, probably benign findings. Reviewed, dictated and finalized at location A.
== END 2021-02-11 11:23 | disposition home or self-care (01) ==
LOC: ANHIMG 11:23
PROVIDERS: PCP Family Medicine; Visit Provider Internal Medicine Hematology & Oncology
DX: C50.412 Malignant neoplasm of upper-outer quadrant of left female breast (principal); Z17.0 Estrogen receptor positive status [ER+]; R92.8 Other abnormal and inconclusive findings on diagnostic imaging of breast
CPT/HCPCS: 77061; 77065; G0279

== ENCOUNTER 2021-04-22 10:46 | Outpatient (CLI) | payer MEDICARE, OTHER, SELFPAY ==
--- NOTE | ~2021-04-22 | CT_ITS ---
EXAMINATION: CT chest high resolution wo co DATE: 04/22/2021 11:18 INDICATION: Interstitial lung disease TECHNIQUE: Computed tomography (CT) of the chest was performed without intravenous contrast. The dose -length product (DLP) was 236.27 mGy-cm. Automated exposure control and iterative reconstruction tech nique were employed. COMPARISON: 03/09/2020 FINDINGS: Subpleural groundglass opacities persist with the dependent and lower lung zone predominanc e with slight improvement in the lower lobes. There is no pleural effusion or pneumothorax. Fissural lymph nodes are noted on the right. No pathologically enlarged thoracic lymph nodes are identified. T he heart size is normal. A hematoma/seroma of the left breast persists but has decreased in size. The gallbladder is surgically absent. A lytic lesion of the left proximal humerus is again seen and stab le with interval bone scan consistent with an enchondroma. IMPRESSION: 1. Slightly improved chronic interstitial lung disease in a pattern of nonspecific interstitial pneum onia (NSIP). Reviewed, dictated and finalized at location A. IMPRESSION: 1. Slightly improved chronic interstitial lung disease in a pattern of nonspeci fic interstitial pneumonia (NSIP).
== END 2021-04-22 10:47 | disposition home or self-care (01) ==
LOC: ANHIMG 10:55
PROVIDERS: PCP Family Medicine; Visit Provider Nurse Practitioner Family
DX: J84.9 Interstitial pulmonary disease, unspecified (principal)
CPT/HCPCS: 71250

== ENCOUNTER 2021-06-10 11:22 | Outpatient (CLI) | payer MEDICARE, OTHER, SELFPAY ==
[2021-06-10 11:44] LABS: Basophils Absolute Auto 0.1 K/mm3 (0.0-0.1); Basophils Percent Auto 1.2 % (0.2-1.2); Eosinophils Absolute Auto 0.2 K/mm3 (0-0.3); Eosinophils Percent Auto 4.3 % (0-4.4); Hematocrit 40.2 % (37.0-47.0); Hemoglobin 12.9 g/dL (12.0-15.0); Immature Granulocyte Absolute 0.01 K/mm3 (0.00-0.031); Immature Granulocyte Percent A 0.2 % (0-0.5); Lymphocytes Absolute Auto 1.21 K/mm3 (0.9-3.2); Lymphocytes Percent Auto 28.6 % (18.3-44.2); Mean Corpuscular HGB Conc 32.1 g/dl (32-36); Mean Corpuscular Hemoglobin 29.4 pg (26-34); Mean Corpuscular Volume 91.6 fl (80-100); Mean Platelet Volume 10.1 fl (7.4-10.4); Monocytes Absolute Auto 0.5 K/mm3 (0.1-0.6); Monocytes Percent Auto 11.3 % (2.6-8.5); Neutrophils Absolute Auto 2.3 K/mm3 (1.3-6.7); Neutrophils Percent Auto 54.4 % (45.5-73.1); Platelet Count Result 180 k/mm3 (150-375); Red Blood Count 4.39 M/mm3 (4.2-5.4); Red Cell Distribution Width 12.6 % (11.5-14.5); White Blood Count 4.2 K/mm3 (4.5-10.0)
[2021-06-10 16:48] LABS: Alanine Aminotransferase 16 U/L (4-35); Albumin Level 3.9 g/dL (3.5-5.1); Alkaline Phosphatase 73 U/L (38-126); Anion Gap 4 mmol/L (8-16); Aspartate Amino Transferase 24 U/L (14-36); Bilirubin,Total 0.5 mg/dL (0.2-1.3); Blood Urea Nitrogen 19 mg/dL (7-17); Calcium 9.3 mg/dL (8.4-10.2); Carbon Dioxide 30 mmol/L (22-30); Chloride 104 mmol/L (98-107); Estimated Glomerular Filt Rate > 60; Glucose 94 mg/dL (65-110); Sodium 138 mmol/L (137-145)
[2021-06-13 05:50] LABS: CA 15-3 21 U/mL (<32)
== END 2021-06-10 11:23 | disposition home or self-care (01) ==
LOC: ANHLAB 11:26
PROVIDERS: PCP Family Medicine; Visit Provider Internal Medicine Hematology & Oncology
DX: C50.412 Malignant neoplasm of upper-outer quadrant of left female breast (principal); Z17.0 Estrogen receptor positive status [ER+]
CPT/HCPCS: 36415; 80053; 85025; 86300

== ENCOUNTER 2021-08-15 11:15 | Outpatient (CLI) | payer MEDICARE, OTHER, SELFPAY ==
--- NOTE | ~2021-08-15 | MM_ITS ---
EXAMINATION: MM diagnostic marquis BI w mana HISTORY: Six-month follow-up for probably benign left breast calcifications TECHNIQUE: Craniocaudal, mediolateral, and mediolateral oblique 3-D tomosynthesis images of the breas ts were performed and synthetic 2-D images were generated. CAD analysis was submitted and interpreted . COMPARISON: 02/11/2021, 08/06/2020, 11/22/2019, 07/20/2019 BREAST PARENCHYMAL COMPOSITION: The breasts are heterogeneously dense, which may obscure small masses . FINDINGS: Lumpectomy changes of the left breast demonstrate continued interval decrease in prominence . There are stable, benign calcifications at the lumpectomy site. Changes of left axillary lymph node dissection are noted. There is no evidence of suspicious mass, calcification, or architectural disto rtion in either breast to suggest malignancy. IMPRESSION: 1. No mammographic evidence of malignancy. 2. Recommend routine screening mammography in one year. BI-RADS Category 2: Benign finding(s). Reviewed, dictated and finalized at location A. TOP SUPPORT CONSULTANT
== END 2021-08-15 11:16 | disposition home or self-care (01) ==
LOC: ANHIMG 11:20
PROVIDERS: PCP Family Medicine; Visit Provider Internal Medicine Hematology & Oncology
DX: C50.412 Malignant neoplasm of upper-outer quadrant of left female breast (principal); Z17.0 Estrogen receptor positive status [ER+]
CPT/HCPCS: 77062; 77066; G0279

== ENCOUNTER 2021-09-17 15:33 | Outpatient (CLI) | payer MEDICARE, OTHER, SELFPAY ==
--- NOTE | ~2021-09-17 | DEXA_ITS ---
Bone Density Report Name: KATRINA ROLLE Age: 76 Sex: Female Ethnicity: White Date of : 1945 Indication: postmenopausal; height loss; cancer; Referring Provider: NORMA MENDOZA Study: Bone densitometry was performed. Exam Date: September 17, 2021 Accession number: [id number] Bone Density: Region BMD T-score Z-score Classification AP Spine (L1-L4) 0.964 -0.8 1.7 Normal Femoral Neck (Left) 0.567 -2.5 -0.4 Osteoporosis Total Hip (Left) 0.838 -0.9 1.0 Normal Total Hip Bilateral Avg 0.831 -0.9 0.9 Normal Femoral Neck (Right) 0.592 -2.3 -0.2 Osteopenia Total Hip (Right) 0.822 -1.0 0.9 Normal World Health Organization criteria for BMD impression classify patients as: Normal (T-score at or above -1.0), Osteopenia (T-score between -1.0 and -2.5), or Osteoporosis (T-score at or below -2.5). 10-year Fracture Risk: FRAX not reported because: Some T-score for Spine Total or Hip Total or Femoral Neck at or below -2.5 Clinical Information Provided by Patient: Has used the following medications: Vitamin D Has the following medical conditions: Cancer Patient maximum height was 66 Menopause Age: 50 Onset of menses at age 13 Number of children 2 Impression: The patient has osteoporosis, based on the Left Femoral Neck T-score. Discussion: INCREASED RISK OF FRACTURE. BONE DENSITY IS UNDESIRABLY LOW AT ONE OR MORE SKELETAL SITES, CONSISTENT WITH POSTMENOPAUSAL OSTEOPOROSIS. This patient's lowest T-score meets the World Health Organization's (WHO) criteria for osteoporosis at one or more sites (T-score -2.5 or below). In untreated patients, the risk of osteoporotic fracture increases approximately two-fold for each 1.0 SD decrease in T-score. Low bone density is not the only risk factor for fracture; also consider factors such as patient's age, frailty or poor health, risk of falling, risk of injury, previous osteoporotic fracture, family history of osteoporosis, cigarette smoking, low body weight, etc. Not everyone with low bone mineral density has osteoporosis; osteomalacia and other metabolic bone disorders should also be considered. Patients who have osteoporosis should be evaluated for specific diseases and conditions (secondary causes) that may cause or contribute to bone loss. The [place] [employer] Endocrinologists (AACE) and National Osteoporosis Foundation (NOF) recommend pharmacologic intervention for all postmenopausal women whose T-score is in this range. The patient should follow a healthful lifestyle (good nutrition with adequate calcium and vitamin D, and appropriate weight-bearing exercise). Follow-Up: Consider a repeat BMD and Vertebral Fracture Assessment (VFA) exam in 2 years or sooner if medically necessary, to reassess this patient's status. Reported by: [facility] on 09/17/2021 3:50:00 PM. ___
== END 2021-09-17 15:34 | disposition home or self-care (01) ==
PROVIDERS: PCP Family Medicine; Visit Provider Family Medicine
DX: E55.9 Vitamin D deficiency, unspecified (principal); Z78.0 Asymptomatic menopausal state; M81.0 Age-related osteoporosis without current pathological fracture; M85.851 Other specified disorders of bone density and structure, right thigh
CPT/HCPCS: 77080

== ENCOUNTER 2021-10-15 10:59 | Outpatient (CLI) | payer MEDICARE, OTHER, SELFPAY ==
[2021-10-15 11:15] LABS: Basophils Percent Auto 0.9 % (0.2-1.2); Eosinophils Absolute Auto 0.1 K/mm3 (0-0.3); Eosinophils Percent Auto 2.7 % (0-4.4); Hematocrit 42.4 % (37.0-47.0); Hemoglobin 13.3 g/dL (12.0-15.0); Immature Granulocyte Absolute 0.01 K/mm3 (0.00-0.031); Immature Granulocyte Percent A 0.2 % (0-0.5); Mean Corpuscular HGB Conc 31.4 g/dl (32-36); Mean Corpuscular Hemoglobin 29.2 pg (26-34); Monocytes Absolute Auto 0.5 K/mm3 (0.1-0.6); Monocytes Percent Auto 10.5 % (2.6-8.5); Neutrophils Absolute Auto 2.3 K/mm3 (1.3-6.7); Neutrophils Percent Auto 53.7 % (45.5-73.1); Platelet Count Result 197 k/mm3 (150-375); Red Blood Count 4.56 M/mm3 (4.2-5.4); Red Cell Distribution Width 12.9 % (11.5-14.5); White Blood Count 4.4 K/mm3 (4.5-10.0)
[2021-10-15 12:05] LABS: Alanine Aminotransferase 17 U/L (4-35); Albumin Level 4.2 g/dL (3.5-5.1); Alkaline Phosphatase 85 U/L (38-126); Anion Gap 7 mmol/L (8-16); Aspartate Amino Transferase 24 U/L (14-36); Bilirubin,Total 0.4 mg/dL (0.2-1.3); Blood Urea Nitrogen 24 mg/dL (7-17); Calcium 9.4 mg/dL (8.4-10.2); Carbon Dioxide 26 mmol/L (22-30); Chloride 106 mmol/L (98-107); Estimated Glomerular Filt Rate > 60; Glucose 112 mg/dL (65-110); Sodium 139 mmol/L (137-145)
[2021-10-17 14:59] LABS: CA 15-3 21 U/mL (<32)
== END 2021-10-15 11:00 | disposition home or self-care (01) ==
LOC: ANHLAB 11:00
PROVIDERS: PCP Family Medicine; Visit Provider Internal Medicine Hematology & Oncology
DX: C50.412 Malignant neoplasm of upper-outer quadrant of left female breast (principal); Z17.0 Estrogen receptor positive status [ER+]
CPT/HCPCS: 36415; 80053; 85025; 86300

== ENCOUNTER 2022-02-11 10:03 | Outpatient (CLI) | payer MEDICARE, OTHER, SELFPAY ==
[2022-02-11 10:36] LABS: Basophils Percent Auto 0.9 % (0.2-1.2); Eosinophils Absolute Auto 0.2 K/mm3 (0-0.3); Eosinophils Percent Auto 4.9 % (0-4.4); Hemoglobin 13.1 g/dL (12.0-15.0); Immature Granulocyte Absolute 0.01 K/mm3 (0.00-0.031); Immature Granulocyte Percent A 0.2 % (0-0.5); Lymphocytes Absolute Auto 1.08 K/mm3 (0.9-3.2); Lymphocytes Percent Auto 23.9 % (18.3-44.2); Mean Corpuscular Hemoglobin 28.8 pg (26-34); Mean Corpuscular Volume 90.1 fl (80-100); Mean Platelet Volume 10.2 fl (7.4-10.4); Monocytes Absolute Auto 0.5 K/mm3 (0.1-0.6); Neutrophils Absolute Auto 2.7 K/mm3 (1.3-6.7); Neutrophils Percent Auto 60.1 % (45.5-73.1); Platelet Count Result 189 k/mm3 (150-375); Red Blood Count 4.55 M/mm3 (4.2-5.4); Red Cell Distribution Width 13.2 % (11.5-14.5); White Blood Count 4.5 K/mm3 (4.5-10.0)
[2022-02-11 12:33] LABS: Alanine Aminotransferase 14 U/L (6-35); Alkaline Phosphatase 71 U/L (38-126); Anion Gap 7 mmol/L (8-16); Aspartate Amino Transferase 23 U/L (14-36); Bilirubin,Total 0.4 mg/dL (0.2-1.3); Blood Urea Nitrogen 22 mg/dL (7-17); Calcium 9.3 mg/dL (8.4-10.2); Carbon Dioxide 27 mmol/L (22-30); Chloride 104 mmol/L (98-107); Estimated Glomerular Filt Rate > 60; Glucose 92 mg/dL (65-110); Potassium 4.4 mmol/L (3.4-5.0); Sodium 138 mmol/L (137-145)
[2022-02-15 07:44] LABS: CA 15-3 24 U/mL (<32)
== END 2022-02-11 10:04 | disposition home or self-care (01) ==
PROVIDERS: PCP Family Medicine; Visit Provider Internal Medicine Hematology & Oncology
DX: C50.412 Malignant neoplasm of upper-outer quadrant of left female breast (principal); Z17.0 Estrogen receptor positive status [ER+]
CPT/HCPCS: 36415; 80053; 85025; 86300

== ENCOUNTER 2022-10-15 10:08 | Outpatient (CLI) | payer MEDICARE, OTHER, SELFPAY ==
--- NOTE | ~2022-10-15 | MM_ITS ---
EXAMINATION: MM screening marquis BI w mana HISTORY: Screening mammogram mL history of left partial mastectomy for breast cancer TECHNIQUE: Craniocaudal and mediolateral oblique 3-D tomosynthesis images were obtained and synthetic 2-D images were generated. CAD analysis was submitted and interpreted. COMPARISON: August 15, 2021 bilateral diagnostic mammogram February 11, 2021 diagnostic left mammogram August 06, 2020 diagnostic right mammogram 12/01/2019 right ultrasound-guided breast biopsy (proliferative fibrocystic changes; no evidence of ne oplasm BREAST PARENCHYMAL COMPOSITION: The breasts are heterogeneously dense, which may obscure small masses . FINDINGS: Again noted are postoperative changes from right partial mastectomy for history of breast c ancer. Scattered bilateral benign calcifications. There is no evidence of suspicious mass, calcification, or new architectural distortion to suggest malignancy in either breast. There has been no suspicious in terval change. IMPRESSION: 1. Status post left partial mastectomy for breast cancer No mammographic evidence of malignancy. 2. Recommend routine screening mammography in one year. BI-RADS Category 2: Benign finding(s). Reviewed, dictated and finalized at location A. IMPRESSION: 1. Status post left partial mastectomy for breast cancer No mammographic eviden ce of malignancy. 2. Recommend routine screening mammography in one year. BI-RADS Category 2: Benign finding(s).
== END 2022-10-15 10:09 | disposition home or self-care (01) ==
LOC: ANHIMG 10:10
PROVIDERS: PCP Family Medicine; Visit Provider Internal Medicine Hematology & Oncology
DX: Z12.31 Encounter for screening mammogram for malignant neoplasm of breast (principal)
CPT/HCPCS: 77063; 77067

== ENCOUNTER 2023-12-16 10:22 | Outpatient (CLI) | payer MEDICARE, SELFPAY ==
--- NOTE | ~2023-12-16 | MM_ITS ---
EXAMINATION: MM screening marquis BI w mana HISTORY: Screening TECHNIQUE: Craniocaudal and mediolateral oblique 3-D tomosynthesis images were obtained and synthetic 2-D images were generated. CAD analysis was submitted and interpreted. COMPARISON: Comparison to multiple prior studies sequentially, with oldest reviewed study dated 07/2020. BREAST PARENCHYMAL COMPOSITION: Not dense: There are scattered areas of fibroglandular density. FINDINGS: The right breast is stable without evidence for malignancy. There is architectural distorti on in the left breast, consistent with previous lumpectomy for breast cancer. There are developing ad jacent nonspecific calcifications. IMPRESSION: 1. Developing clustered calcifications near the prior surgical site in the upper outer quadrant of th e left breast, middle third. 2. Magnification views are recommended. BI-RADS Category 0: Incomplete: Needs additional imaging evaluation. Reviewed, dictated and finalized at location B. IMPRESSION: 1. Developing clustered calcifications near the prior surgical site in the uppe r outer quadrant of the left breast, middle third. 2. Magnification views are recommended. BI-RADS Category 0: Incomplete: Needs additional imaging evaluation.
== END 2023-12-16 10:23 | disposition home or self-care (01) ==
PROVIDERS: PCP Family Medicine; Visit Provider Internal Medicine Hematology & Oncology
DX: Z12.31 Encounter for screening mammogram for malignant neoplasm of breast (principal); R92.8 Other abnormal and inconclusive findings on diagnostic imaging of breast
CPT/HCPCS: 77063; 77067

== ENCOUNTER 2023-12-31 10:43 | Outpatient (CLI) | payer MEDICARE, SELFPAY ==
--- NOTE | ~2023-12-31 | MM_ITS ---
EXAMINATION: MM diagnostic mammo unilat LT HISTORY: Left breast microcatheter calcifications, prior left breast lumpectomy TECHNIQUE: Additional 3-D tomosynthesis images and spot magnification views of the left breast were p erformed and synthetic 2-D images were generated. CAD analysis was submitted and interpreted. COMPARISON: 12/16/2023, 10/15/2022, 08/15/2021 FINDINGS: There are scattered fibroglandular densities. There is post lumpectomy change at the upper left breast. Spot magnification views demonstrate develo ping coarse calcifications at the lumpectomy site, compatible with dystrophic calcifications and/or f at necrosis change. No suspicious calcifications are evident. IMPRESSION: No mammographic evidence for malignancy. Developing benign calcifications at the lumpectomy site, as detailed above. BI-RADS Category 2: Benign finding(s). Reviewed, dictated and finalized at location . IMPRESSION: No mammographic evidence for malignancy. Developing benign calcifications at th e lumpectomy site, as detailed above. BI-RADS Category 2: Benign finding(s).
== END 2023-12-31 10:44 | disposition home or self-care (01) ==
PROVIDERS: PCP Family Medicine; Visit Provider Internal Medicine Hematology & Oncology
DX: R92.8 Other abnormal and inconclusive findings on diagnostic imaging of breast (principal)
CPT/HCPCS: 77065

== ENCOUNTER 2024-02-15 11:12 | Outpatient (RCR) | payer MEDICARE, OTHER, SELFPAY ==
[2022-02-18 11:54] VITALS: BP 156/80; PULSE 68; TEMP 36.5; O2SAT 97; BMI 29.0
--- NOTE | 2022-02-18 12:20 | PDONCCONNOTE ---
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 one lymph node came back ositive for metastatic carcinoma with 0.4cm size. tumor size was 1.6x1.2x1.1cm. oncotype Dx score was 6. s/p adjuvant RT. February 10, 2020, anastrazole was started today's exam and labs didn't show evidence of recurrence of malignancy. bone health : she is on fosamax by her pcp. to continue vit D and calcium follow up in [address] Pj LUGO - Date/Time Seen 02/18/22 12:20 - History of Present Illness she is on arimidex and reports of hot flushes every night . she denies joint pain or swelling. she has occasional muscle cramp on the calf muscles. she has mammogram and bone density scan and found to have osteopenia . she is on once a week fosamax . Overall she is doing well. she denies weight loss. she has no specific bone pain. - Medical History Medical History (Last Reviewed 05/02/21 @ 10:34 by Deanne Desai CMA) Anxiety GERD (gastroesophageal reflux disease) High cholesterol History of cardiac murmur History of lung disease History of thyroid disease HTN (hypertension) Hyperlipidemia SOB (shortness of breath) on exertion - Surgical History Surgical History (Last Reviewed 05/02/21 @ 10:34 by Deanne Desai CMA) H/O colonoscopy H/O endoscopy H/O lumpectomy right breast H/O tubal ligation History of carpal tunnel surgery History of cholecystectomy History of esophageal dilatation History of hernia surgery - Family History Family History (Last Reviewed 05/02/21 @ 10:34 by Deanne Desai CMA) Sibling Family history of malignant neoplasm of breast Cerebrovascular accident Father Hypertension Cerebrovascular accident Kidney failure Mother Colon cancer Grandparent Breast cancer Other Carcinoma of colon - Social History Social History (Last Reviewed 05/02/21 @ 10:34 by Deanne Desai CMA) Gender Identity: Gender identity (if verbalized by the patient): Female Alcohol Use: Alcohol intake: never Substance Use: Substance use: never Others: Spiritual care concerns: No Smoking Status: Smoking status: Never smoker - Allergies Allergies Allergy/AdvReac Type Severity Reaction Status Date / Time darifenacin [From Enablex] Allergy Unknown vaginal Verified 05/02/21 10:32 itching gemfibrozil Allergy Unknown leg aches Verified 05/02/21 10:32 pseudoephedrine Allergy Unknown high heart Verified 05/02/21 10:32 [From Sudafed] rate Review of Systems - Review of Systems All systems reviewed & are unremarkable except as noted in HPI and bel - Constitutional Reports other (hot flushes ) Exam - Vital Signs Vital Signs - 24 hr 02/18/22 11:54 Temperature 36.5 C Pulse Rate 68 Blood Pressure 156/80 H Pulse Oximetry 97 - Exam HEENT: EOMI, PERRLA, mucous membranes moist and pink, sclera clear Neck: supple Lungs: clear to auscultation, other (breast exam : no palpable mass , no palpable lymphadenopathy ) Heart: no murmurs, gallops, or rubs, regular rhythm, regular rate Abdomen: abdomen soft, non-distended Extremities: normal pulses Integumentary: no abnormalities Neurological: normal gait, normal speech, normal muscle tone, strength at 5/5 X4 Psychological: mental status NL
--- NOTE | 2022-02-18 12:25 | CONS_ITS ---
This report was recreated on February 24, 2022. Original report was signed by Dr. Mynor Rodríguez on February 19, 2022 at 0808. Impression history of [id number], stage II A invasive lobular carcinoma of the left breast , ER 40 %, WI 60 % , HER 2 negative , KI 67 of 5 to 10 % , grade 1 s/p left sided masectomy wiht negative margins on re excison of left sentinel lymph node excision. one lymph node came back ositive for metastatic carcinoma with 0.4cm size. tumor size was 1.6x1.2x1.1cm. oncotype Dx score was 6. s/p adjuvant RT. February 10, 2020, anastrazole was started today's exam and labs didn't show evidence of recurrence of malignancy. bone health : she is on fosamax by her pcp. to continue vit D and calcium follow up in [address] Pj LUGO - Date/Time Seen 02/18/22 12:20 - History of Present Illness she is on arimidex and reports of hot flushes every night . she denies joint pain or swelling. she has occasional muscle cramp on the calf muscles. she has mammogram and bone density scan and found to have osteopenia . she is on once a week fosamax . Overall she is doing well. she denies weight loss. she has no specific bone pain. - Medical History Medical History (Last Reviewed 05/02/21 @ 10:34 by Deanne Desai CMA) Anxiety GERD (gastroesophageal reflux disease) High cholesterol History of cardiac murmur History of lung disease History of thyroid disease HTN (hypertension) Hyperlipidemia SOB (shortness of breath) on exertion - Surgical History Surgical History (Last Reviewed 05/02/21 @ 10:34 by Deanne Desai CMA) H/O colonoscopy H/O endoscopy H/O lumpectomy right breast H/O tubal ligation History of carpal tunnel surgery History of cholecystectomy History of esophageal dilatation History of hernia surgery - Family History Family History (Last Reviewed 05/02/21 @ 10:34 by Deanne Desai CMA) Sibling Family history of malignant neoplasm of breast Cerebrovascular accident Father Hypertension Cerebrovascular accident Kidney failure Mother Colon cancer Grandparent Breast cancer Other Carcinoma of colon - Social History Social History (Last Reviewed 05/02/21 @ 10:34 by Deanne Desai [facility]) Gender Identity: Gender identity (if verbalized by the patient): Female Alcohol Use: Alcohol intake: never Substance Use: Substance use: never Others: Spiritual care concerns: No Smoking Status: Smoking status: Never smoker - Allergies Allergies Allergy/AdvReac Type Severity Reaction Status Date / Time darifenacin [From Enablex] Allergy Unknown vaginal Verified 05/02/21 10:32 itching gemfibrozil Allergy Unknown leg aches Verified 05/02/21 10:32 pseudoephedrine Allergy Unknown high heart Verified 05/02/21 10:32 [From Sudafed] rate Review of Systems - Review of Systems All systems reviewed & are unremarkable except as noted in HPI and bel - Constitutional Reports other (hot flushes ) Exam - Vital Signs Vital Signs - 24 hr 02/18/22 11:54 Temperature 36.5 C Pulse Rate 68 Blood Pressure 156/80 H Pulse Oximetry 97 - Exam HEENT: EOMI, PERRLA, mucous membranes moist and pink, sclera clear Neck: supple Lungs: clear to auscultation, other (breast exam : no palpable mass , no palpable lymphadenopathy ) Heart: no murmurs, gallops, or rubs, regular rhythm, regular rate Abdomen: abdomen soft, non-distended Extremities: normal pulses Integumentary: no abnormalities Neurologi
[2022-08-20 09:39] LABS: Basophils Absolute Auto 0.1 K/mm3 (0.0-0.1); Basophils Percent Auto 1.4 % (0.2-1.2); Eosinophils Absolute Auto 0.1 K/mm3 (0-0.3); Eosinophils Percent Auto 3.2 % (0-4.4); Hematocrit 41.2 % (37.0-47.0); Hemoglobin 13.3 g/dL (12.0-15.0); Immature Granulocyte Absolute 0.01 K/mm3 (0.00-0.031); Immature Granulocyte Percent A 0.2 % (0-0.5); Lymphocytes Absolute Auto 1.36 K/mm3 (0.9-3.2); Lymphocytes Percent Auto 31.2 % (18.3-44.2); Mean Corpuscular HGB Conc 32.3 g/dl (32-36); Mean Corpuscular Hemoglobin 29.6 pg (26-34); Mean Corpuscular Volume 91.8 fl (80-100); Mean Platelet Volume 9.6 fl (7.4-10.4); Monocytes Absolute Auto 0.5 K/mm3 (0.1-0.6); Monocytes Percent Auto 11.7 % (2.6-8.5); Neutrophils Absolute Auto 2.3 K/mm3 (1.3-6.7); Neutrophils Percent Auto 52.3 % (45.5-73.1); Platelet Count Result 203 k/mm3 (150-375); Red Blood Count 4.49 M/mm3 (4.2-5.4); Red Cell Distribution Width 12.9 % (11.5-14.5); White Blood Count 4.4 K/mm3 (4.5-10.0)
[2022-08-20 10:45] LABS: Alanine Aminotransferase 18 U/L (6-35); Albumin Level 4.4 g/dL (3.5-5.1); Alkaline Phosphatase 71 U/L (38-126); Anion Gap 5 mmol/L (8-16); Aspartate Amino Transferase 23 U/L (14-36); Bilirubin,Total 0.4 mg/dL (0.2-1.3); Blood Urea Nitrogen 21 mg/dL (7-17); Calcium 9.1 mg/dL (8.4-10.2); Carbon Dioxide 29 mmol/L (22-30); Chloride 102 mmol/L (98-107); Estimated CRCL calculation 53 ml/min; Estimated Glomerular Filt Rate > 60; Glucose 111 mg/dL (65-110); Potassium 4.1 mmol/L (3.4-5.0); Sodium 136 mmol/L (137-145)
[2022-08-24 04:01] LABS: CA 15-3 29 U/mL (<32)
[2023-02-05 13:23] LABS: Basophils Absolute Auto 0.1 K/mm3 (0.0-0.1); Basophils Percent Auto 1.1 % (0.2-1.2); Eosinophils Absolute Auto 0.1 K/mm3 (0-0.3); Eosinophils Percent Auto 2.8 % (0-4.4); Hematocrit 40.5 % (37.0-47.0); Hemoglobin 13.1 g/dL (12.0-15.0); Immature Granulocyte Absolute 0.02 K/mm3 (0.00-0.031); Immature Granulocyte Percent A 0.4 % (0-0.5); Lymphocytes Absolute Auto 1.57 K/mm3 (0.9-3.2); Lymphocytes Percent Auto 33.5 % (18.3-44.2); Mean Corpuscular HGB Conc 32.3 g/dl (32-36); Mean Corpuscular Hemoglobin 29.5 pg (26-34); Mean Corpuscular Volume 91.2 fl (80-100); Mean Platelet Volume 9.7 fl (7.4-10.4); Monocytes Absolute Auto 0.5 K/mm3 (0.1-0.6); Monocytes Percent Auto 9.8 % (2.6-8.5); Neutrophils Absolute Auto 2.5 K/mm3 (1.3-6.7); Neutrophils Percent Auto 52.4 % (45.5-73.1); Platelet Count Result 193 k/mm3 (150-375); Red Blood Count 4.44 M/mm3 (4.2-5.4); Red Cell Distribution Width 13.6 % (11.5-14.5); White Blood Count 4.7 K/mm3 (4.5-10.0)
[2023-02-05 13:59] LABS: Alanine Aminotransferase 22 U/L (6-35); Albumin Level 4.1 g/dL (3.5-5.1); Alkaline Phosphatase 58 U/L (38-126); Anion Gap 5 mmol/L (8-16); Aspartate Amino Transferase 28 U/L (14-36); Bilirubin,Total 0.4 mg/dL (0.2-1.3); Blood Urea Nitrogen 19 mg/dL (7-17); Calcium 9.1 mg/dL (8.4-10.2); Carbon Dioxide 30 mmol/L (22-30); Chloride 105 mmol/L (98-107); Estimated CRCL calculation 53 ml/min; Estimated Glomerular Filt Rate > 60; Glucose 90 mg/dL (65-110); Potassium 4.1 mmol/L (3.4-5.0); Sodium 140 mmol/L (137-145)
[2023-02-11 08:07] LABS: CA 15-3 21 U/mL (<32)
[2023-08-13 10:52] LABS: Basophils Absolute Auto 0.1 K/mm3 (0.0-0.1); Basophils Percent Auto 0.9 % (0.2-1.2); Eosinophils Absolute Auto 0.2 K/mm3 (0-0.3); Eosinophils Percent Auto 4.3 % (0-4.4); Hematocrit 43.2 % (37.0-47.0); Hemoglobin 13.7 g/dL (12.0-15.0); Immature Granulocyte Absolute 0.01 K/mm3 (0.00-0.031); Immature Granulocyte Percent A 0.2 % (0-0.5); Lymphocytes Absolute Auto 1.69 K/mm3 (0.9-3.2); Lymphocytes Percent Auto 31.4 % (18.3-44.2); Mean Corpuscular HGB Conc 31.7 g/dl (32-36); Mean Corpuscular Hemoglobin 28.9 pg (26-34); Mean Corpuscular Volume 91.1 fl (80-100); Monocytes Absolute Auto 0.7 K/mm3 (0.1-0.6); Monocytes Percent Auto 12.3 % (2.6-8.5); Neutrophils Absolute Auto 2.7 K/mm3 (1.3-6.7); Neutrophils Percent Auto 50.9 % (45.5-73.1); Platelet Count Result 200 k/mm3 (150-375); Red Blood Count 4.74 M/mm3 (4.2-5.4); Red Cell Distribution Width 13.1 % (11.5-14.5); White Blood Count 5.4 K/mm3 (4.5-10.0)
[2023-08-13 11:48] LABS: Alanine Aminotransferase 15 U/L (6-35); Albumin Level 4.2 g/dL (3.5-5.1); Alkaline Phosphatase 66 U/L (38-126); Anion Gap 4 mmol/L (8-16); Aspartate Amino Transferase 23 U/L (14-36); Bilirubin,Total 0.5 mg/dL (0.2-1.3); Blood Urea Nitrogen 27 mg/dL (7-17); Calcium 9.5 mg/dL (8.4-10.2); Carbon Dioxide 29 mmol/L (22-30); Chloride 106 mmol/L (98-107); Estimated CRCL calculation 52 ml/min; Estimated Glomerular Filt Rate > 60; Glucose 104 mg/dL (65-110); Potassium 4.3 mmol/L (3.4-5.0); Sodium 139 mmol/L (137-145)
[2023-08-16 05:06] LABS: CA 15-3 27 U/mL (<32)
[2024-02-15 11:29] LABS: Basophils Absolute Auto 0.1 K/mm3 (0.0-0.1); Basophils Percent Auto 1.2 % (0.2-1.2); Eosinophils Absolute Auto 0.3 K/mm3 (0-0.3); Eosinophils Percent Auto 4.6 % (0-4.4); Hematocrit 40.9 % (37.0-47.0); Hemoglobin 13.1 g/dL (12.0-15.0); Immature Granulocyte Absolute 0.01 K/mm3 (0.00-0.031); Immature Granulocyte Percent A 0.2 % (0-0.5); Lymphocytes Absolute Auto 1.63 K/mm3 (0.9-3.2); Lymphocytes Percent Auto 28.6 % (18.3-44.2); Mean Corpuscular Hemoglobin 29.2 pg (26-34); Mean Corpuscular Volume 91.3 fl (80-100); Mean Platelet Volume 9.8 fl (7.4-10.4); Monocytes Absolute Auto 0.6 K/mm3 (0.1-0.6); Monocytes Percent Auto 10.7 % (2.6-8.5); Neutrophils Absolute Auto 3.1 K/mm3 (1.3-6.7); Neutrophils Percent Auto 54.7 % (45.5-73.1); Platelet Count Result 186 k/mm3 (150-375); Red Blood Count 4.48 M/mm3 (4.2-5.4); Red Cell Distribution Width 13.2 % (11.5-14.5); White Blood Count 5.7 K/mm3 (4.5-10.0)
[2024-02-15 12:43] LABS: Alanine Aminotransferase 15 U/L (6-35); Alkaline Phosphatase 59 U/L (38-126); Anion Gap 9 mmol/L (4-12); Aspartate Amino Transferase 26 U/L (14-36); Bilirubin,Total 0.5 mg/dL (0.2-1.3); Blood Urea Nitrogen 18 mg/dL (7-17); Calcium 9.3 mg/dL (8.4-10.2); Carbon Dioxide 28 mmol/L (22-30); Chloride 100 mmol/L (98-107); Estimated CRCL calculation 52 ml/min; Estimated Glomerular Filt Rate > 60; Glucose 104 mg/dL (65-110); Potassium 4.1 mmol/L (3.4-5.0); Sodium 137 mmol/L (137-145)
[2024-02-16 12:09] LABS: CA 15-3 22 U/mL (<32)
== END 2024-02-22 14:04 ==
LOC: AMCINF 11:12
PROVIDERS: PCP Family Medicine; Visit Provider Internal Medicine Hematology & Oncology
DX: C50.412 Malignant neoplasm of upper-outer quadrant of left female breast (principal); C77.3 Secondary and unspecified malignant neoplasm of axilla and upper limb lymph nodes; Z17.0 Estrogen receptor positive status [ER+]; I10 Essential (primary) hypertension; R01.1 Cardiac murmur, unspecified; M81.0 Age-related osteoporosis without current pathological fracture; K21.9 Gastro-esophageal reflux disease without esophagitis; E78.00 Pure hypercholesterolemia, unspecified; E78.5 Hyperlipidemia, unspecified; N95.1 Menopausal and female climacteric states; F41.9 Anxiety disorder, unspecified; Z86.39 Personal history of other endocrine, nutritional and metabolic disease; Z87.09 Personal history of other diseases of the respiratory system; Z92.3 Personal history of irradiation
CPT/HCPCS: 36415; 80053; 85025; 86300; 99212; G0463

== ENCOUNTER 2024-08-15 11:24 | Outpatient (CLI) | payer MEDICARE, SELFPAY ==
[2024-08-15 11:36] LABS: Basophils Absolute Auto 0.1 K/mm3 (0.0-0.1); Eosinophils Absolute Auto 0.2 K/mm3 (0-0.3); Eosinophils Percent Auto 4.3 % (0-4.4); Hematocrit 40.9 % (37.0-47.0); Hemoglobin 13.2 g/dL (12.0-15.0); Immature Granulocyte Absolute 0.01 K/mm3 (0.00-0.031); Immature Granulocyte Percent A 0.2 % (0-0.5); Lymphocytes Absolute Auto 1.68 K/mm3 (0.9-3.2); Lymphocytes Percent Auto 33.1 % (18.3-44.2); Mean Corpuscular HGB Conc 32.3 g/dl (32-36); Mean Corpuscular Hemoglobin 29.4 pg (26-34); Mean Corpuscular Volume 91.1 fl (80-100); Mean Platelet Volume 9.8 fl (7.4-10.4); Monocytes Absolute Auto 0.6 K/mm3 (0.1-0.6); Monocytes Percent Auto 11.8 % (2.6-8.5); Neutrophils Absolute Auto 2.5 K/mm3 (1.3-6.7); Neutrophils Percent Auto 49.6 % (45.5-73.1); Platelet Count Result 188 k/mm3 (150-375); Red Blood Count 4.49 M/mm3 (4.2-5.4); Red Cell Distribution Width 12.9 % (11.5-14.5); White Blood Count 5.1 K/mm3 (4.5-10.0)
--- OUTSIDE RECORDS SUMMARY | 2024-08-15 12:13 | XMS_ITS | Clinical Summary ---
Author Organization [facility] Address [address] [place] [address] Care Team Providers Care Terra Cotta Mason Name Role Phone Safia Epstein MD Primary Care Provider Allergies Active Allergy Reactions Criticality Noted Date Comments Atorvastatin Muscle Pain Low 12/14/2015 Ezetimibe Muscle Pain Low 12/14/2015 Lovastatin Muscle Pain Low 12/14/2015 Pravastatin Muscle Pain Low 12/14/2015 Rosuvastatin Muscle Pain Low 12/14/2015 Simvastatin Muscle Pain Low 12/14/2015 Rueuylh-Jar-Kyw Reductase Inhibitors Muscle Pain Low 12/28/2020 Statin drugs cause muscle pain Sulfa (Sulfonamide Antibiotics) Unknown 08/23/2016 Medications metoprolol succinate (TOPROL XL) 50 mg Extended Release 24 hour tablet Take 25 mg by mouth daily. 0 Active lisinopriL (PRINIVIL) 10 mg tablet TAKE 1 TABLET BY MOUTH EVERY DAY 0 Active Lacto.acidophil us-Bif.animalis 31 billion cell Capsule Take 1 Tablet by mouth. Active loratadine (CLARITIN) 10 mg tablet Take 10 mg by mouth daily. Active aspirin (ECOTRIN EC) 81 mg Tablet, Delayed Release (E.C.) Take 81 mg by mouth daily. Active ALPRAZolam (XANAX) 0.5 mg tablet TAKE 1 TABLET BY MOUTH EVERY DAY AT BEDTIME NEEDED 0 Active ketoconazole (NIZORAL) 2 % Shampoo APPLY SHAMPOO BY TOPICAL ROUTE TWICE WEEKLY FOR 4 WEEKS WITH AT LEAST3 DAYS BETWEEN EACH SHAMPOOING 1 Active levothyroxine 112 mcg tablet TAKE 1 TABLET BY MOUTH EVERY DAY 1 Active ergocalciferol, vitamin D2, (VITAMIN D ORAL) Take by mouth. Activ e busPIRone (BUSPAR) 15 mg Tablet Take 15 mg by mouth. Active pregabalin (LYRICA) 25 mg Capsule Take 25 mg by mouth. Active anastrozole (ARIMIDEX) 1 mg tabletIndicatio ns:Malignant neoplasm of upper-outer quadrant of left breast in female, estrogen receptor positive (CMS/HCC) Take 1 Tablet (1 mg) by mouth daily. 90 Tablet 4 4 Active Active Problems Problem Noted Date Diagnosed Date Malignant neoplasm of upper- outer quadrant of left breast in female, estrogen receptor positive 11/02/2019 Encounters Date Type Department Care Team Description 07/28/2024 External Device Data STL ABSTRACTION Provider, Abstract 06/21/2024 Orders Only [facility] Oncology and Hematology - Mallie [address] Faina Abdullahi [address] [address] Jama Oliva MD from Last 3 Months Family History Medical History Relation Name Comments Cancer Daughter 2 Diabetes Daughter 2 Arthritis-rheumatoid Father Kidney Disease Father Colon Cancer Mother Cancer Sister Relation Name Status Comments Daughter 1 Alive Daughter 2 Father Mother Alive Sister Alive sister had rojelio st cancer twice. Social History Tobacco Use Types Packs/Day Years Used Date Smoking Tobacco: Never Smokeless Tobacco: Never Tobacco Cessation:Counseling Given: Not Answered Alcohol Use Standard Drinks/Week Comments Never 0 (1 standard drink = 0.6 oz pur e alcohol) Comments No Sex and Gender Information Value Date Recorded Sex Assigned at Not on file Legal Sex Female 10:35 AM CDT Gender Identity Not on file Sexual Orientation Not on file Last Filed Vital Signs Vital Sign Reading Time Taken Comments Blood Pressure 129/60 02/23/2024 12:58 PM CDT Pulse 80 02/23/2024 12:58 PM CDT Temperature 36.5 C (97.7 F) 02/23/2024 12:58 PM CDT Respiratory Rate 16 02/23/2024 12:58 PM CDT Oxygen Saturation 93% 02/23/2024 12:58 PM CDT Inhaled Oxygen Concentration - - Weight 83.5 kg (184 lb) 02/23/2024 12:58 PM CDT Height 165.1 cm (5' 5 ) 10/22/2021 9:54 AM CDT Body Mass Index 30.62 10/22/2021 9:54 AM CDT Plan of Treatment Upcoming Encounters Date Type Department Care Team (Late st Contact Info) Description 08/25/2024 1:00 PM 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 Office Visit [facility] Oncology and Hematology - Jozef [address] [facility] [address] [place] [address] Jama Oliva MD [address] [facility] [address] [place] [address] Health Maintenance Due Date Last Done Comments DTAP/TDAP/TD VACCINES (1 - Tdap) 1964 PNEUMOCOCCAL VACCINE 65+ YEA RS (1 of 1 - PCV) 1995 ZOSTER VACCINE (1 of 2) 1995 RSV VACCINE (60+ or ) (1 - 1-dose 75+ series) 2020 COVID-19 Vaccine (3 - season) 03/06/202412/2020, 08/11/2020 [place] Prev entative Visit/Annual Wellness Visit 07/06/2024 OSTEOPOROSIS SCREENING Completed , 03/02/2019, 11/06/2016 INFLUENZA VACCINE Completed 04/28/2024 Procedures Procedure Name Priority Date/Time Associated Diagnosis Comments NM BONE DENSITY Routine 06/20/2024 11:24 AM 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 from Last 3 Months Results * NM BONE DENSITY (06/20/2024 11:24 AM 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) Anatomical Region Laterality Modality Other Jama Oliva MD NM ORDERABLES Final Result from Last 3 Months Insurance [employer] PPO [facility] Care Teams Terra Cotta Mason Relationship Specialty Start Date End Date Safia Epstein MD [address] [email or web address] [id number] PCP - General Family Practice 10/28/19
--- OUTSIDE RECORDS SUMMARY | 2024-08-15 12:14 | XMS_ITS ---
Author Organization [facility] Address [address] [place] [id number] Care Team Providers Care Drip Box Tender Name Role Phone Safia Epstein Primary Care Provider [phone] REASON FOR VISIT rf Medications Medication SIG (Take, Route, Frequency, Duration) Notes Start Date End Date Status ALPRAZolam 0.5 MG 1/2 Oral two times a day; Duration: 30 days ,PRN Reason:for anxiety 08/12/2024 Active Encounters Encounter Location Date Provider Diagnosis [address] [address] 08/12/2024 Safia Epstein Plan Of Treatment Medication Medication Name Sig Start Date Stop Date Notes ALPRAZolam 0.5 MG 1/2 Oral two times a day; Duration: 30 days 08/12/2024 ,PRN Reason:for a nxiety Next Appt Details Provider Name:Safia Epstein , 09/07/2024 03:15:00 PM, [address] [place] [address], [phone], [phone] Progress Notes * Mary Lou ROLLE ADOB: [birth year] (79 yo F)Acc No.[id number]:08/12/2024 Patient: Lisette MEHTArambo Renteria :1945 A ge:79 Y S ex:Female Phone: Address:[address] [place] [address], [id number] * Refills Refill ALPRAZolam Tablet, 0.5 MG, Oral, 30, 1/2, two times a day, 30 days, Refills=2 * true * Date: Generated for Printi ng/Mariusz/Javier on: 0 08/15/2024 12:14 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
--- OUTSIDE RECORDS SUMMARY | 2024-08-15 12:14 | XMS_ITS | Patient Health Record ---
Author Organization [facility] dicine Address [address] [place] [address] Care Team Providers Care Preservative Filler Machine Operator Name Role Phone Safia Epstein Primary Care Provider [phone] Evelyn Hurtado Unavailable [phone] Migration, Provider Unavailable Unavailable Results Component Value Reference Range Notes CBC w/ Diff Reviewed date:12/25/2023 12:00:00 AM Interpretation: Performing Lab: Notes/Report: Baso Absolute 0.1 x10*3/mcL Basophil Auto 1.8 % Eos Absolute 0.2 x10*3/mcL Eosinophil Auto 4.5 % Hct 40.0 % Hgb 13.2 g/dL Lymph Absolute 1.4 x10*3/mcL Lymph Auto 31.8 % MCH 28.7 pg MCHC 32.9 g/dL MCV 87.1 fL [place] Absolute 0.4 x10*3/mcL [place] Auto 9.9 % MPV 9.1 fL Neutro Absolute 2.3 x10*3/mcL Neutro Auto 52.0 % Platelets 174 K/mcL RBC 4.59 x10*6/mcL RDW 13.6 % WBC 4.3 K/mcL Comprehensive Metabolic Pane l Reviewed date:12/25/2023 12:00:00 AM Interpretation: Performing Lab: Notes/Report: Albumin Lvl 4.0 g/dL Albumin/Globulin Ratio 1.6 Alk Phos 46 unit/L ALT 11 unit/L ANION GAP 5.9 mmol/L AST 15 unit/L Bilirubin Total 0.6 mg/dL BUN 16 mg/dL Calcium Lvl 9.4 mg/dL Chloride Lvl 105 mmol/L CO2 30 mmol/L Creatinine Lvl 0.83 mg/dL eGFR CKD-EPI 72 mL/min/1.73 m2 Glucose Lvl 97 mg/dL Potassium Lvl 4.6 mmol/L Protein Total 6.6 g/dL Sodium Lvl 141 mmol/L Hemoglobin A1c {Glycosylated } Reviewed date:12/25/2023 12:00:00 AM Interpretation: Performing Lab: Notes/Report: eAvg Glucose 126 mg/dL Hemoglobin A1c 6.0 % Lipid Panel {Chol, Trig, HDL , LDL} Reviewed date:12/25/2023 12:00:00 AM Interpretation: Performing Lab: Notes/Report: Chol/HDL 4 Cholesterol Total 185 mg/dL Coronary Risk 26 % HDL 48 mg/dL LDL 78 mg/dL NON HDL CHOLESTEROL 137 mg/dL Triglycerides 295 mg/dL T4 Free Reviewed date:12/25/2023 12:00:00 AM Interpretation: Performing Lab: Notes/Report: T4 Free 0.98 ng/dL Thyroid Stimulating Hormone Reviewed date:12/25/2023 12:00:00 AM Interpretation: Performing Lab: Notes/Report: TSH 0.72 mcIU/mL Vitamin D 25 Hydroxy Reviewed date:12/25/2023 12:00:00 AM Interpretation: Performing Lab: Notes/Report: Vitamin D 25 OH 37 ng/mL CBC w/ Diff Reviewed date:05/13/2024 12:00:00 AM Interpretation: Performing Lab: Notes/Report: Basophil Auto 1.0 % Eos Absolute 0.1 x10*3/mcL Eosinophil Auto 3.4 % Hct 41.6 % Hgb 13.6 g/dL Lymph Absolute 1.3 x10*3/mcL Lymph Auto 29.5 % MCH 29.0 pg MCHC 32.6 g/dL MCV 89.2 fL [place] Absolute 0.5 x10*3/mcL [place] Auto 11.2 % MPV 9.5 fL Neutro Absolute 2.4 x10*3/mcL Neutro Auto 54.9 % Platelets 182 K/mcL RBC 4.67 x10*6/mcL RDW 14.3 % WBC 4.4 K/mcL Comprehensive Metabolic Pane l Reviewed date:05/13/2024 12:00:00 AM Interpretation: Performing Lab: Notes/Report: Albumin Lvl 4.0 g/dL Albumin/Globulin Ratio 1.5 Alk Phos 59 unit/L ALT 14 unit/L ANION GAP 4.0 mmol/L AST 16 unit/L Bilirubin Total 0.7 mg/dL BUN 16 mg/dL Calcium Lvl 9.4 mg/dL Chloride Lvl 106 mmol/L CO2 32 mmol/L Creatinine Lvl 0.83 mg/dL eGFR CKD-EPI 72 mL/min/1.73 m2 Glucose Lvl 98 mg/dL Potassium Lvl 4.2 mmol/L Protein Total 6.6 g/dL Sodium Lvl 142 mmol/L Hemoglobin A1c {Glycosylated } Reviewed date:05/13/2024 12:00:00 AM Interpretation: Performing Lab: Notes/Report: eAvg Glucose 134 mg/dL Hemoglobin A1c 6.3 % Lipid Panel {Chol, Trig, HDL , LDL} Reviewed date:05/13/2024 12:00:00 AM Interpretation: Performing Lab: Notes/Report: Chol/HDL 5 Cholesterol Total 238 mg/dL Coronary Risk 18 % HDL 44 mg/dL LDL N/A TRIG>400 mg/dL NON HDL CHOLESTEROL 194 mg/dL Triglycerides 453 mg/dL Magnesium Reviewed date:05/13/2024 12:00:00 AM Interpretation: Performing Lab: Notes/Report: Magnesium Lvl 2.1 mg/dL T4 Free Reviewed date:05/13/2024 12:00:00 AM Interpretation: Performing Lab: Notes/Report: T4 Free 0.99 ng/dL Thyroid Stimulating Hormone Reviewed date:05/13/2024 12:00:00 AM Interpretation: Performing Lab: Notes/Report: TSH 0.93 mcIU/mL Vitamin D 25 Hydroxy Reviewed date:05/13/2024 12:00:00 AM Interpretation: Performing Lab: Notes/Report: Vitamin D 25 OH 33 ng/mL Patient Health Questionnaire (PHQ9) Reviewed date:05/19/2024 12:00:00 AM Interpretation: Performing Lab: Notes/Report: Feeling bad about yourself o r that you are a failure or have let yourself or your family down 0 Feeling down, depressed, or hopeless 0 Feeling tired or having little energy 1 If you checked off any probl ems, how difficult Not difficult at all have these problems made it for you to do your work, take care of things at home, or get along with other people? 0 Little interest or pleasure in doing things 0 Moving or speaking so slowly that other people could have noticed or the opposite being so figety or restless that you have been moving around a lot more than usual 0 Poor appetite or overeating 0 Thoughts that you would be b carmina off , or of hurting yourself 0 Trouble concentrating on thi ngs, such as reading the newspaper or watching television 0 Trouble falling or staying a sleep, or sleeping too much 0 Reason For Referral Reason O2 desat at night. U nsure if she has sleep apnea. Diagnosis 1 Low oxygen saturatio n (R79.81) Referral Organization [facility] Referring Provider First Name Safia Referring Provider Last Name Hoffman Referring Provider [facility] jovani Referred Provider [facility], [place] Referred Provider Specialty Ear, nose an d throat surgeon General Notes Danuta Hou 0 07/26/2024 08:30:18 AM FIREWORKS DISPLAY SPECIALIST >Faxed referral to [place] [facility], Caron Rogers 07/27/2024 09:06:33 AM FIREWORKS DISPLAY SPECIALIST >Patient is scheduled for an appointment on 08-10-2024 at 10:45 am with Adrianna Lauren. Referral Priority Routine Referral Appointment Date 08/10/2024 Medications Medication SIG (Take, Route, Frequency, Duration) Notes Start Date End Date Status Anastrozole 1 MG 1 Oral every day; Duration: 0 12/07/2020 Active Pregabalin 50 MG Oral; Duration: 90 04/24/2024 10/20/2024 Active Levothyroxine Sodium 100 MCG 1 Oral every day; Duration: 90 03/15/2024 09/10/2024 Active Ocuvite Adult 50 Plus oral; Duration: 0 *Reorder from [facility] for eRx and Interaction Alerts* 12/07/2020 Active Vitamin D2 oral; Duration: 0 *Pick strength-form from [employer] for eRX* 12/12/2020 Active Losartan Potassium 100 MG 1/2 Oral two times a day; Duration: 0 06/06/2024 Active ALPRAZolam 0.5 MG 1/2 Oral two times a day; Duration: 30 days ,PRN Reason:for anxiety 08/12/2024 Active Metamucil oral; Duration: 0 *Pick strength-form from [employer] for eRX* 12/07/2020 Active Pantoprazole Sodium 40 MG 1 tablet 1/2 to 1 hour before morning meal Orally Once a day; Duration: 90 days Active Nitroglycerin 0.4 MG Sublingual; Duration: 0 01/03/2021 Active Vitamin D3 Ultra Strength 125 MCG (5000 UT) 1 Oral every day; Duration: 0 10/24/2021 Active Lidocaine 5 % 1 External every day; Duration: 0 04/28/2024 Active Aspirin Adult Low Strength 81 MG 1 Oral every day; Duration: 0 12/07/2020 Active busPIRone HCl 15 MG 1 tablet Orally Twice a day; Duration: 90 days Active cloNIDine HCl 0.1 MG 1/2 to 1 Oral three times a day; Duration: 0 04/28/2024 Not-Taking Immunizations Vaccine Route Administration Date Status Comme nts Influenza, high-dose seasonal, quadrivalent, preservative free >65 yrs IM Intramuscular 04/17/2021 Administered ,sourcename : N ew immunization record ,immstatus : Complete Influenza, high-dose seasonal, quadrivalent, preservative free >65 yrs IM Intramuscular 04/17/2022 Administered ,sourcename : New immunization record ,immstatus : Complete Source VFC Code: : Influenza, high-dose seasonal, quadrivalent, preservative free >65 yrs Unknown 04/23/2023 Administered ,sourcename : Historical information -from public agency Source VFC Code: : Moderna Covid-19 Vaccine 1st dose Unknown 08/11/2020 Administered ,sourcename : Historical information -from public agency Source VFC Code: : Moderna Covid-19 Vaccine 1st dose Unknown 09/08/2020 Administered ,sourcename : Historical information -from public agency Source VFC Code: : Moderna Covid-19 Vaccine 1st dose Unknown 05/08/2021 Administered ,sourcename : Historical information -from public agency Source VFC Code: : Influenza, high dose seasonal Unknown 04/05/2020 Administered ,sourcename : Historical information -from public agency Source VFC Code: : Influenza, high dose seasonal IM Intramuscular 04/22/2024 Administered ,sourcename : N ew immunization record ,immstatus : Complete Pfizer-Biontech Covid-19 Vaccine 1st dose IM Intramuscular 05/11/2024 Administered ,sourcename : N ew immunization record ,immstatus : Complete Pneumococcal conjugate PCV 13 Unknown 08/06/2014 Administered ,sourcename : Historical information -from public agency Source VFC Code: : Pneumococcal polysaccharide PPV23 Unknown 03/06/2013 Administered ,sourcename : Historical information -from public agency Source VFC Code: : RSV-MAb (Respiratory syncytial virus immune globulin) IM Intramuscular 05/06/2023 Administered ,sourcename : New immunization record ,immstatus : Complete Tdap Unknown 11/03/2010 Administered ,sourcename : Historical information -from public agency Source VFC Code: : Tdap IM Intramuscular 05/19/2024 Administered ,sourc ename : New immunization record ,immstatus : Complete Zoster Unknown 05/06/2015 Administered ,sourcename : Historical information -from public agency Source VFC Code: : Problems Problem Type SNOMED Code ICD Code Onset Dates Problem Status W/U Status Risk Notes Problem 2074188 Primary insomnia (F51.01) Active confirmed Problem Hyperlipidemia (09584525) Hyperlipidemia, unspecified (E78.5) 04/19/20 Active confirmed Problem Anxiety disorder (119455075) Anxiety disorder, unspecified (F41.9) 01/04/20 Active confirmed Problem Insomnia (038597038) Insomnia, unspecified (G47.00) 10/25/19 22 Active confirmed Problem Essential hypertension (70500188) Essential (primary) hypertension (I10) 01/04/20 21 Active confirmed Problem Age-related osteoporosis (465191971) Age-related osteoporosis without current pathological fracture (M81.0) 11/10/19 24 Active confirmed Problem Palpitations (30616902) Palpitations (R00.2) 02/08/20 24 Active confirmed Problem Personal history of primary malignant neoplasm of breast (003875807) Personal history of malignant neoplasm of breast (Z85.3) 12/11/19 22 Active confirmed Problem Right side sciatica (593397555489504) Sciatica, right side (M54.31) 04/05/20 24 Active confirmed Problem Cervicalgia (26629118) Cervicalgia (M54.2) 04/19/20 21 Active confirmed Problem Spinal stenosis (16405611) Spinal stenosis, site unspecified (M48.00) 05/02/20 24 Active confirmed Lumbar Problem Scoliosis (892996634) Scoliosis, unspecified (M41.9) 04/22/20 24 Active confirmed Problem Pain of left knee joint (finding) (582830718155294) Pain in left knee (M25.562) 07/15/19 24 Active confirmed Problem Gastro-esophageal reflux disease without esophagitis (995936945) Gastro-esophagea l reflux disease without esophagitis (K21.9) 01/04/20 21 Active confirmed Problem 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, 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) 01/03/20 23 Active confirmed Problem Rheumatic tricuspid insufficiency (71508676) Rheumatic tricuspid insufficiency (I07.1) 01/29/20 23 Active confirmed Problem Vitamin D deficiency (55362865) Vitamin D deficiency, unspecified (E55.9) 04/19/20 21 Active confirmed Problem Hypothyroidism (42496040) Hypothyroidism, unspecified (E03.9) 01/12/20 21 Active confirmed Problem Menopausal symptom (24414458) Symptomatic menopausal or female climacteric states (627.2) 10/30/19 17 Active confirmed Problem Cough (finding) (39864637) Cough, unspecified (R05.9) 06/03/20 22 Active confirmed Problem Prediabetes (284264926) Prediabetes (R73.03) 01/03/20 23 Active confirmed Problem Spinal stenosis of lumbar region (04529026) Spinal stenosis, lumbar region without neurogenic claudication (M48.061) 09/12/19 23 Active confirmed Problem History of malignant neoplasm (704729288) Personal history of malignant neoplasm, unspecified (Z85.9) 05/02/20 24 Active confirmed Problem Malignant neoplasm of female breast (609239263) Malignant neoplasm of unspecified site of unspecified female breast (C50.919) 04/19/20 21 Active confirmed Problem Interstitial emphysema (93743379) Interstitial emphysema (518.1) 08/16/19 19 Active confirmed Vital Signs Heart Rate 76 /min 07/01/2024 Temperature 97.6 degrees Fahrenheit 07/01/2024 Respiratory Rate 16 /min 07/01/2024 Height-cm 162.56 cm 07/01/2024 Oximetry 96 % 07/01/2024 Blood pressure diastolic 70 mm Hg 07/01/2024 Weight-kg 83.46 kg 07/01/2024 Height 64.00 in 07/01/2024 Blood pressure systolic 140 mm Hg 07/01/2024 Weight 184 lbs 07/01/2024 BMI 31.58 kg/m2 07/01/2024 Encounters Encounter Location Date Provider Diagnosis [address] [address] 11/10/2023 Evelyn Hurtado Gastro-esophageal reflux disease without esophagitis K21.9 ; Dependent relative needing care at home Z63.6 ; Anxiety disorder, unspecified F41.9 ; Chest pain, unspecified R07.9 and Age-related osteoporosis without current pathological fracture M81.[address] [address] 12/24/2023 Provider Migration Essential (primary) hypertension I10 ; Vitamin D deficiency, unspecified E55.9 ; Hyperlipidemia, unspecified E78.5 and Prediabetes R73.[address] [address] 12/29/2023 Evelyn Hurtado Mixed hyperlipidemia E78.2 ; Chest pain, unspecified R07.9 ; Headache, unspecified R51.9 ; Age-related osteoporosis without current pathological fracture M81.0 ; Dependent relative needing care at home Z63.6 ; Anxiety disorder, unspecified F41.9 ; Other abnormal and inconclusive findings on diagnostic imaging of breast R92.8 and Gastro-esophageal reflux disease without esophagitis K21.[address] [address] 02/08/2024 Evelyn Hurtado Dependent relative needing care at home Z63.6 ; Primary exertional headache G44.84 ; Palpitations R00.2 ; Anxiety disorder, unspecified F41.9 and Essential (primary) hypertension I10 [address] [address] 04/05/2024 Evelyn Hurtado Sciatica, right side M54.[address] [address] 04/12/2024 Provider Migration Spinal stenosis, lumbar region without neurogenic claudication M48.061 ; Sciatica, right side M54.31 and Dorsalgia, unspecified M54.[address] [address] 04/14/2024 Provider Migration Spinal stenosis, lumbar region without neurogenic claudication M48.061 and Sciatica, right side M54.[address] [address] 04/18/2024 Provider Migration Dorsalgia, unspecified M54.9 ; Spinal stenosis, lumbar region without neurogenic claudication M48.061 and Paresthesia of skin R20.[address] [address] 04/22/2024 [facility] Sciatica, right side M54.31 ; Low back pain, unspecified M54.50 ; Spinal stenosis, lumbar region without neurogenic claudication M48.061 ; Personal history of malignant neoplasm of breast Z85.3 ; Encounter for immunization Z23 and Scoliosis, unspecified M41.[address] [address] 04/28/2024 [facility] Spinal stenosis, lumbar region without neurogenic claudication M48.061 and Essential (primary) hypertension I10 [address] [address] 05/02/2024 Provider Migration Personal history of malignant neoplasm, unspecified Z85.9 ; Spinal stenosis, site unspecified M48.00 and Spinal stenosis, lumbar region without neurogenic claudication M48.[address] [address] 05/11/2024 [facility] Encounter for immunization Z23 ; Vitamin D deficiency, unspecified E55.9 ; Essential (primary) hypertension I10 ; Hypothyroidism, unspecified E03.9 ; Hyperlipidemia, unspecified E78.5 and Prediabetes R73.[address] [address] 05/19/2024 Evelyn Hurtado Hyperlipidemia, unspecified E78.5 ; Encounter for immunization Z23 ; Anxiety disorder, unspecified F41.9 ; Urinary tract infection, site not specified N39.0 ; Dependent relative needing care at home Z63.6 ; Encounter for screening for malignant neoplasm of colon Z12.11 ; Gastro-esophageal reflux disease without esophagitis K21.9 ; Essential (primary) hypertension I10 ; Spinal stenosis, lumbar region without neurogenic claudication M48.061 ; Age-related osteoporosis without current pathological fracture M81.0 ; Other obesity due to excess calories E66.09 ; Interstitial pulmonary disease, unspecified J84.9 ; Rheumatic tricuspid insufficiency I07.1 ; Encounter for general adult medical examination without abnormal findings Z00.00 ; Right upper quadrant pain R10.11 and Headache, unspecified R51.[address] [address] 05/24/2024 Provider Migration Spinal stenosis, lumbar region without neurogenic claudication M48.061 and Headache, unspecified R51.[address] [address] 06/06/[address] [address] 07/01/2024 [facility] Anxiety disorder, unspecified F41.9 ; Essential (primary) hypertension I10 ; Primary insomnia F51.01 ; Other specified disorders of bone density and structure, unspecified site M85.80 and Asymptomatic menopausal state Z78.[address] [address] 06/04/2024 Provider Migration [address] [address] 06/05/[address] [address] 06/21/[address] [address] 07/19/2024 Evelyn Hurtado [address] [address] 08/12/2024 [facility] Assessments Encounter Date Diagnosis (ICD Code) Assessment Notes Treat ment Notes Treatment Clinical Notes 11/10/2023 Anxiety disorder, unspecified (ICD-10 - F41.9) 11/10/2023 Gastro-esophageal reflux disease without esophagitis (ICD-10 - K21.9) 11/10/2023 Age-related osteoporosis without current pathological fracture (ICD-10 - M81.0) 11/10/2023 Chest pain, unspecified (ICD-10 - R07.9) 11/10/2023 Dependent relative needing care at home (ICD-10 - Z63.6) 12/24/2023 Vitamin D deficiency, unspecified (ICD-10 - E55.9) 12/24/2023 Hyperlipidemia, unspecified (ICD-10 - E78.5) 12/24/2023 Essential (primary) hypertension (ICD-10 - I10) 12/24/2023 Prediabetes (ICD-10 - R73.03) 12/29/2023 Mixed hyperlipidemia (ICD-10 - E78.2) 12/29/2023 Anxiety disorder, unspecified (ICD-10 - F41.9) 12/29/2023 Gastro-esophageal reflux disease without esophagitis (ICD-10 - K21.9) 12/29/2023 Age-related osteoporosis without current pathological fracture (ICD-10 - M81.0) 12/29/2023 Chest pain, unspecified (ICD-10 - R07.9) 12/29/2023 Other abnormal and inconclusive findings on diagnostic imaging of breast (ICD-10 - R92.8) 12/29/2023 Dependent relative needing care at home (ICD-10 - Z63.6) 12/29/2023 Headache, unspecified (ICD-10 - R51.9) 02/08/2024 Anxiety disorder, unspecified (ICD-10 - F41.9) 02/08/2024 Primary exertional headache (ICD-10 - G44.84) 02/08/2024 Essential (primary) hypertension (ICD-10 - I10) 02/08/2024 Palpitations (ICD-10 - R00.2) 02/08/2024 Dependent relative needing care at home (ICD-10 - Z63.6) 04/05/2024 Sciatica, right side (ICD-10 - M54.31) 04/12/2024 Sciatica, right side (ICD-10 - M54.31) 04/12/2024 Dorsalgia, unspecified (ICD-10 - M54.9) 04/12/2024 Spinal stenosis, lumbar region without neurogenic claudication (ICD-10 - M48.061) 04/14/2024 Sciatica, right side (ICD-10 - M54.31) 04/14/2024 Spinal stenosis, lumbar region without neurogenic claudication (ICD-10 - M48.061) 04/18/2024 Dorsalgia, unspecified (ICD-10 - M54.9) 04/18/2024 Paresthesia of skin (ICD-10 - R20.2) 04/18/2024 Spinal stenosis, lumbar region without neurogenic claudication (ICD-10 - M48.061) 04/22/2024 Scoliosis, unspecified (ICD-10 - M41.9) 04/22/2024 Sciatica, right side (ICD-10 - M54.31) 04/22/2024 Encounter for immunization (ICD-10 - Z23) 04/22/2024 Personal history of malignant neoplasm of breast (ICD-10 - Z85.3) 04/22/2024 Spinal stenosis, lumbar region without neurogenic claudication (ICD-10 - M48.061) 04/22/2024 Low back pain, unspecified (ICD-10 - M54.50) 04/28/2024 Essential (primary) hypertension (ICD-10 - I10) 04/28/2024 Spinal stenosis, lumbar region without neurogenic claudication (ICD-10 - M48.061) 05/02/2024 Spinal stenosis, site unspecified (ICD-10 - M48.00) Lumbar 05/02/2024 Personal history of malignant neoplasm, unspecified (ICD-10 - Z85.9) 05/02/2024 Spinal stenosis, lumbar region without neurogenic claudication (ICD-10 - M48.061) 05/11/2024 Hypothyroidism, unspecified (ICD-10 - E03.9) 05/11/2024 Vitamin D deficiency, unspecified (ICD-10 - E55.9) 05/11/2024 Hyperlipidemia, unspecified (ICD-10 - E78.5) 05/11/2024 Essential (primary) hypertension (ICD-10 - I10) 05/11/2024 Encounter for immunization (ICD-10 - Z23) 05/11/2024 Prediabetes (ICD-10 - R73.03) 05/19/2024 Other obesity due to excess calories (ICD-10 - E66.09) 05/19/2024 Hyperlipidemia, unspecified (ICD-10 - E78.5) 05/19/2024 Anxiety disorder, unspecified (ICD-10 - F41.9) 05/19/2024 Rheumatic tricuspid insufficiency (ICD-10 - I07.1) 05/19/2024 Essential (primary) hypertension (ICD-10 - I10) 05/19/2024 Interstitial pulmonary disease, unspecified (ICD-10 - J84.9) 05/19/2024 Gastro-esophageal reflux disease without esophagitis (ICD-10 - K21.9) 05/19/2024 Age-related osteoporosis without current pathological fracture (ICD-10 - M81.0) 05/19/2024 Urinary tract infection, site not specified (ICD-10 - N39.0) 05/19/2024 Right upper quadrant pain (ICD-10 - R10.11) 05/19/2024 Encounter for general adult medical examination without abnormal findings (ICD-10 - Z00.00) 05/19/2024 Encounter for screening for malignant neoplasm of colon (ICD-10 - Z12.11) 05/19/2024 Encounter for immunization (ICD-10 - Z23) 05/19/2024 Dependent relative needing care at home (ICD-10 - Z63.6) 05/19/2024 Spinal stenosis, lumbar region without neurogenic claudication (ICD-10 - M48.061) 05/19/2024 Headache, unspecified (ICD-10 - R51.9) 05/24/2024 Spinal stenosis, lumbar region without neurogenic claudication (ICD-10 - M48.061) 05/24/2024 Headache, unspecified (ICD-10 - R51.9) 07/01/2024 Anxiety disorder, unspecified (ICD-10 - F41.9) 07/01/2024 Essential (primary) hypertension (ICD-10 - I10) 07/01/2024 Primary insomnia (ICD-10 - F51.01) 07/01/2024 Other specified disorders of bone density and structure, unspecified site (ICD-10 - M85.80) 07/01/2024 Asymptomatic menopausal state (ICD-10 - Z78.0) 07/01/2024 Other Hypertension: - Blood pressure fluctuates, with morning readings often at 140/70. Current regimen includes losartan 50 mg twice daily and metoprolol succinate 25 (half tablet twice daily). Blood pressure spikes may be related to sleep issues, potentially linked to oxygen desaturation during sleep. - Increase metoprolol succinate to a full tablet at night while maintaining a half tablet in the morning. Monitor for tolerance, particularly for symptoms like dizziness or lightheadedness. If symptoms of dizziness or lightheadedness occur, consider adjusting the dosage. Anxiety: - Managed with buspirone 15 mg twice daily and alprazolam in pm (half tablet as needed). Alprazolam use in the morning has decreased. - Continue buspirone 15 mg twice daily. Option to increase buspirone dose during the day if needed, up to an additional half or full tablet, provided it does not cause grogginess. Reduce alprazolam use at night if possible, as it may affect breathing during sleep. Consider doxepin as a safer alternative for sleep and anxiety if alprazolam reduction leads to sleep difficulties. Monitor for any side effects or changes in anxiety levels. Sleep disturbances: - Possible sleep apnea contributing to blood pressure spikes and oxygen desaturation (lowest recorded oxygen level at 82% lowest with < 88% for one minute). - Patient opted to defer polysomnography for now. Discussed potential future options, including a home sleep study, oxygen therapy, or a dental appliance for mild to moderate sleep apnea. Reassess the need for a sleep study if symptoms such as daytime sleepiness, headaches, or difficulty concentrating persist. Osteopenia: - Bone density test shows low bone mass (T-score of -2.4), not meeting criteria for osteoporosis. - Increase calcium intake through diet or supplements. Recommended Caltrate Plus D chewable (600 mg calcium and 400 IU vitamin D) twice daily. Advised against calcium pills exceeding 600 mg per dose due to absorption limits. - Risks and side effects: 2% increased risk of kidney stones with calcium supplements. Monitor for any signs of kidney stones or other side effects. Sciatic nerve pain: - Previously managed with gabapentin, which the patient has been taking every other night. - Discontinue pregabalin. Monitor for symptoms such as nerve pain, restlessness, or leg jerking over five days. If symptoms do not recur, continue without pregabalin. Reevaluate if symptoms return. Prescription - metoprolol succinate, increase to a full tablet at night while maintaining half a tablet in the morning. - Calcium supplement, 600 mg twice daily, recommended as Caltrate Plus D chewable. Risk of kidney stones (2%) and rare heart issues mentioned. - Discontinue pregabalin if no symptoms (e.g., pain, restlessness, leg jerking) occur after five days without it. - Consider reducing alprazolam to half a pill at bedtime if pregabalin is discontinued and sleep quality remains stable. - Doxepin (consider for future) low dose suggested as a safer alternative for sleep and anxiety if alprazolam reduction leads to sleep issues. Plan Of Treatment Next Appt Details Provider Name:Safia Epstein , 09/07/2024 03:15:00 PM, [address] [facility], [place], [address], [phone] Insurance Providers Payer Name Payer Address Payer Phone Subscriber Number Group Number Insured Name Patient Relationship to Insured Coverage Start Date Coverage End Date [employer] Medicare Advantage Ppo [address] [place] [address] [id number] Mary Lou Patel Self - patient is the insured 4 Medical (General) History Surgical History Surgery Date(Month/Year) (66481) BIOPSY/REMOVAL LYMPH NODES ,note s : left - malignant (41859) COMP SCREEN MAMMOGRAM ADD-ON ,no rahul : Nl. repeat in 1 yr. (33922) BONE IMAGING WHOLE BODY 04/16/20 20 Tubal ligation 1975 (19998) REMOVAL OF BREAST LESION ,notes : right - Benign tumor 1989 (94141) CARPAL TUNNEL SURGERY ,notes : B ilateral 2003 (12375) COLOGUARD SCREENING ,notes : neg ative 09/2020 (35388) DOPPLER ECHO EXAM HE ART ,notes : Mild Tricups. regurg. EF 67% 10/2017 colonoscopy ,notes : Nl 01/2010 (04550) DXA BONE DENSITY STUDY ,notes : Severe osteopenia 02/2021 (04125) REMOVAL OF GALLBLADDER 03/2012 (3130F) UPPER GI ENDOSCOPY P ERFORMED ,notes : distal esophageal stenosis, Sm Hiatal hernia- Repeat in 2 years 04/02/2018
--- OUTSIDE RECORDS SUMMARY | 2024-08-15 12:14 | XMS_ITS ---
Author Organization [facility] dicine Address [address] [place] [address] Care Team Providers Care Jointer Operator Name Role Phone Safia Epstein Primary Care Provider [phone] Evelyn Hurtado [phone] REASON FOR VISIT oxygen Encounters Encounter Location Date Provider Diagnosis [address] [address] 07/19/2024 Evelyn Hurtado Plan Of Treatment Next Appt Details Provider Name:Safia Epstein , 09/07/2024 03:15:00 PM, [address] [place] [address], [phone], [phone] Progress Notes * Mary Lou ROLLE ADOB: [birth year] (79 yo F)Acc No.[id number]:07/19/2024 Patient: Mary Lou MEHTA :1945 A ge:79 Y S ex:Female Phone: Address:[address] [place], [place] [address], [address] * true * Date: Generated for Printi ng/Faxing/eTransmitting on: 0 08/15/2024 12:13 PM ELECTRICAL TIMING DEVICE CALIBRATOR
--- OUTSIDE RECORDS SUMMARY | 2024-08-15 12:14 | XMS_ITS ---
Author Organization Counts Include [facility] Address [address] [place] [address] Care Team Providers Care Faculty Research Physician Name Role Phone Safia Epstein Primary Care Provider [phone] REASON FOR VISIT Discuss hypoxia Medications Medication SIG (Take, Route, Frequency, Duration) Notes Start Date End Date Status Anastrozole 1 MG 1 Oral every day; Duration: 0 12/07/2020 Active Pregabalin 50 MG Oral; Duration: 90 04/24/2024 10/20/2024 Active Losartan Potassium 100 MG 1/2 Oral two times a day; Duration: 0 06/06/2024 Active Metamucil oral; Duration: 0 *Pick strength-form from [employer] [email or web address] for eRX* 12/07/2020 Active Metoprolol Succinate ER 25 MG 1/2 Oral two times a day; Duration: 90 days 05/02/2024 07/30/2024 Active Levothyroxine Sodium 100 MCG 1 Oral every day; Duration: 90 03/15/2024 09/10/2024 Active ALPRAZolam 0.5 MG 1/2 Oral two times a day; Duration: 30 ,PRN Reason:for anxiety 04/14/2024 07/12/2024 Active Vitamin D3 Ultra Strength 125 MCG (5000 UT) 1 Oral every day; Duration: 0 10/24/2021 Active Aspirin Adult Low Strength 81 MG 1 Oral every day; Duration: 0 12/07/2020 Active cloNIDine HCl 0.1 MG 1/2 to 1 Oral three times a day; Duration: 0 04/28/2024 Not-Taking Nitroglycerin 0.4 MG Sublingual; Duration: 0 01/03/2021 Active Lidocaine 5 % 1 External every day; Duration: 0 04/28/2024 Active busPIRone HCl 15 MG 1 tablet Orally Twice a day; Duration: 90 days Active Pantoprazole Sodium 40 MG 1 Oral every day; Duration: 90 02/03/2024 07/31/2024 Active Ocuvite Adult 50 Plus oral; Duration: 0 *Reorder from [email or web address] for eRx and Interaction Alerts* 12/07/2020 Active Vitamin D2 oral; Duration: 0 *Pick strength-form from [email or web address] for eRX* 12/12/2020 Active Problems Problem Type SNOMED Code ICD Code Onset Dates Problem Status W/U Status Risk Notes Problem 9383083 Primary insomnia (F51.01) Active confirmed Vital Signs Temperature 97.6 degrees Fahrenheit 07/01/20 Blood pressure systolic 140 mm Hg 07/01/20 24 Blood pressure diastolic 70 mm Hg 024 Heart Rate 76 /min 07/01/2024 Respiratory Rate 16 /min 07/01/2024 Height 64.00 in 07/01/2024 Weight 184 lbs 07/01/2024 BMI 31.58 kg/m2 07/01/2024 Oximetry 96 % 07/01/2024 Height-cm 162.56 cm 07/01/2024 Weight-kg 83.46 kg 07/01/2024 Encounters Encounter Location Date Provider Diagnosis [address] [address] 07/01/2024 [facility] Anxiety disorder, unspecified F41.9 ; Essential (primary) hypertension I10 ; Primary insomnia F51.01 ; Other specified disorders of bone density and structure, unspecified site M85.80 and Asymptomatic menopausal state Z78.0 Assessments Encounter Date Diagnosis (ICD Code) Assessment Notes Treatment Notes Treatment Clinical Notes 07/01/2024 Anxiety disorder, unspecified (ICD-10 - F41.9) [...] leads to sleep issues. Plan Of Treatment Treatment Notes Assessment Notes Other Hypertension: - Blood pressure fluctuates, with [...] if alprazolam reduction leads to sleep issues. Next Appt Details Provider Name:Safia Epstein , 09/07/2024 03:15:00 PM, [address] [place] [address], [id number], [phone] History and Physical Notes * Examination Category Sub-Category Detail Notes General Examination General appearance: alert, p leasant, well-nourished and in no acute distress Neck / thyroid: neck is supple with no cervical lymphadenopathy, trachea midline Heart: regular rate and rhy thm without murmurs, gallops, clicks or rubs, S1 and S2 are normal and no S3 and S4 gallop Lungs: clear to auscultatio n bilaterally, with good air movement and no rales, rhonchi or wheezes Skin: skin is warm and dry , with no rashes, good skin turgor and normal hair distribution Extremities: normal extremity wit h no clubbing, cyanosis or edema Lymph nodes: no cervical lymphade nopathy Psych: alert and oriented x 3, cognitive function intact, maintains good eye contact, normal affect / mood, speech is clear and coherent Progress Notes * Mary Lou ROLLE ADOB: [birth year] (79 yo F)Acc No.[id number]:07/01/2024 Progress Notes Patient: Mary Lou Salazar Provider: Dai Epstein MD :1945 A ge:79 Y S ex:Female Date:07/01/2024 Phone: Address:[facility] [address] [facility] Subjective: * Chief Complaints: * D iscuss hypoxia * HPI: H PI: Here to discuss recent overnight pulse oximeter results. Cardiology had originally wanted patient have an overnight sleep study done - patient declined and was willing to have this test done ordered by our office to see if a sleep study was warranted. - Blood pressure fluctuating, typically 115/70 to 130/70, but rises to 140/70 in the mornings or when medication is due. - Reports occasional palpitations. - Previously experienced sciatic nerve pain, managed with pregabalin, now taking it every other night. - Noted grogginess and fatigue about two weeks ago, following an illness. - Mentioned being measured as two cm shorter on one side, using a shoe insert for alignment. - No daytime sleepiness unless very tired. - Does not usually nap during the day. DEXA results show -2.4. Not taking any calcium. Imaging results - Bone density test: Low bone mass (osteopenia), T-score: -2.4. * Medications: T akingLevothyroxine Sodium 100 MCG Tablet 1 Oral every day , stop date 09/10/2024Vitamin D3 Ultra Strength 125 MCG (5000 UT) Capsule 1 Oral every day ALPRAZolam 0.5 MG Tablet 1/2 Oral two times a day , stop date 07/12/2024, Notes to Pharmacist: ,PRN Reason:for anxietyAspirin Adult Low Strength 81 MG Tablet Delayed Release 1 Oral every day Metoprolol Succinate ER 25 MG Tablet Extended Release 24 Hour 1/2 Oral two times a day , stop date 07/30/2024Metamucil oral , Notes to Pharmacist: *Pick strength-form from E-Box [email or web address] for eRX*Losartan Potassium 100 MG Tablet 1/2 Oral two times a day Pregabalin 50 MG Capsule Oral , stop date 10/20/2024nastrozole 1 MG Tablet 1 Oral every day Vitamin D2 oral , Notes to Pharmacist: *Pick strength-form from [facility] for eRX*Ocuvite Adult 50 Plus oral , Notes to Pharmacist: *Reorder from [facility] for eRx and Interaction Alerts*Lidocaine 5 % Patch 1 External every day Nitroglycerin 0.4 MG Tablet Sublingual Sublingual Pantoprazole Sodium 40 MG Tablet Delayed Release 1 Oral every day , stop date 07/31/2024usPIRone HCl 15 MG Tablet 1 tablet Orally Twice a day Taking Levothyroxine Sodium 100 MCG Tablet 1 Oral every day , stop date 09/10/2024Taking Vitamin D3 Ultra Strength 125 MCG (5000 UT) Capsule 1 Oral every day Taking ALPRAZolam 0.5 MG Tablet 1/2 Oral two times a day , stop date 07/12/2024, Notes to Pharmacist: ,PRN Reason:for anxietyTaking Aspirin Adult Low Strength 81 MG Tablet Delayed Release 1 Oral every day Taking Metoprolol Succinate ER 25 MG Tablet Extended Release 24 Hour 1/2 Oral two times a day , stop date 07/30/2024Taking Metamucil oral , Notes to Pharmacist: *Pick strength-form from [facility] for eRX*Taking Losartan Potassium 100 MG Tablet 1/2 Oral two times a day Taking Pregabalin 50 MG Capsule Oral , stop date 10/20/2024Taking Anastrozole 1 MG Tablet 1 Oral every day Taking Vitamin D2 oral , Notes to Pharmacist: *Pick strength-form from [facility] for eRX*Taking Ocuvite Adult 50 Plus oral , Notes to Pharmacist: *Reorder from [facility] for eRx and Interaction Alerts*Taking Lidocaine 5 % Patch 1 External every day Taking Nitroglycerin 0.4 MG Tablet Sublingual Sublingual Taking Pantoprazole Sodium 40 MG Tablet Delayed Release 1 Oral every day , stop date 07/31/2024Taking busPIRone HCl 15 MG Tablet 1 tablet Orally Twice a day Not-TakingcloNIDine HCl 0.1 MG Tablet 1/2 to 1 Oral three times a day Not-Taking cloNIDine HCl 0.1 MG Tablet 1/2 to 1 Oral three times a day DiscontinuedProbiotic 10 billion cell Capsule 1 Oral every day , Notes to Pharmacist: *Pick strength-form from [employer] for eRX*Discontinued Probiotic 10 billion cell Capsule 1 Oral every day , Notes to Pharmacist: *Pick strength-form from [employer] [email or web address] for eRX* Objective: * Vitals: B P: 140/70 mm Hg, HR: 76 /min, RR: 16 /min, Temp: 97.6 F, Oxygen sat %: 96 %, Ht: 64.00 in, Wt: 184 lbs, Wt-k.46 kg, Ht-cm: 162.56 cm, BMI: 31.58 Index, Body Surface Area: 1.94. * Examination: G eneral Examination: General appearance: a lert, pleasant, well-nourished and in no acute distress. Neck / thyroid: n jose guadalupe is supple with no cervical lymphadenopathy, trachea midline. Lymph nodes: n o cervical lymphadenopathy. Skin: s kin is warm and dry, with no rashes, good skin turgor and normal hair distribution. Heart: r egular rate and rhythm without murmurs, gallops, clicks or rubs, S1 and S2 are normal and no S3 and S4 gallop. Lungs: c lear to auscultation bilaterally, with good air movement and no rales, rhonchi or wheezes. Extremities: n ormal extremity with no clubbing, cyanosis or edema. Psych: a lert and oriented x 3, cognitive function intact, maintains good eye contact, normal affect / mood, speech is clear and coherent. ? Assessment: * Assessment: 1. A nxiety disorder, unspecified - F41.9 (Primary) S pecify :Src Problem: Anxiety 2 . E ssential (primary) hypertension - I10 3 . P rimary insomnia - F51.01 4 . O ther specified disorders of bone density and structure, unspecified site - M85.80 5 . A symptomatic menopausal state - Z78.0 ? Plan: * Treatment: * Procedure Codes: G 2211 G 2211 Complexity Add-On Billing Information: * Visit Code: 09114 OFFICE VISIT MODERATE. * Procedure Codes: G2211 G 2211 Complexity Add-On. * CONCIERGE Sign off status: Completed true * Provider: Dai Epstein MD Date: 09/01/2023 Generated for Paty scherer/Mariusz/eTransmitting on: 0 08/15/2024 12:13 PM HEAD CONCIERGE
--- OUTSIDE RECORDS SUMMARY | 2024-08-15 12:14 | XMS_ITS | Encounter Summary ---
Author Organization [facility] Address [address] [place] [address] Care Team Providers Care Solid Waste Manager Name Role Phone Safia Epstein MD Primary Care Provider Encounter Details Date Type Department Care Team (Late st Contact Info) Description 11/02/2019 Chart Note [facility] Radiation Therapy [address] [place] [address] [place] [address] [place] [address] Social History Tobacco Use Types Packs/Day Years Used Date Smoking Tobacco: Never Smokeless Tobacco: Never Alcohol Use Standard Drinks/Week Comments Never 0 (1 standard drink = 0.6 oz pur e alcohol) Comments No Sex and Gender Information Value Date Recorded Sex Assigned at Not on file Legal Sex Female 10:35 AM CDT Gender Identity Not on file Sexual Orientation Not on file COVID-19 Exposure Response Date Recorded In the last month, have you been in contact with someone who was confirmed or suspected to have Coronavirus / COVID-19? No / Unsure 11/02/2019 8:18 AM CDT documented as of this encounter Functional Status documented as of this encounter Plan of Treatment Upcoming Encounters Date Type Department Care Team (Late st Contact Info) Description 08/25/2024 1:00 PM CONTRACT SHELTERED WORKSHOP SUPERVISOR Office Visit [facility] Oncology and Hematology - [address] [address] Jama Oliva MD [address] [facility] [address] [place] [address] documented as of this encounter Visit Diagnoses Not on filedocumented in this encounter Care Teams Solid Waste Manager Relationship Specialty Start Date End Date Safia Epstein MD [address] [place] [phone] PCP - General Family Practice 10/28/19 documented as of this encounter
[2024-08-15 12:54] LABS: Alanine Aminotransferase 15 U/L (6-35); Albumin Level 3.8 g/dL (3.5-5.1); Alkaline Phosphatase 68 U/L (38-126); Anion Gap 7 mmol/L (4-12); Aspartate Amino Transferase 22 U/L (14-36); Bilirubin,Total 0.5 mg/dL (0.2-1.3); Blood Urea Nitrogen 21 mg/dL (7-17); Calcium 9.5 mg/dL (8.4-10.2); Carbon Dioxide 30 mmol/L (22-30); Chloride 105 mmol/L (98-107); Estimated Glomerular Filt Rate > 60; Glucose 93 mg/dL (65-110); Potassium 4.2 mmol/L (3.4-5.0); Sodium 142 mmol/L (137-145)
[2024-08-16 07:58] LABS: CA 15-3 24 U/mL (<32)
== END 2024-08-15 11:25 | disposition home or self-care (01) ==
PROVIDERS: PCP Family Medicine; Visit Provider Internal Medicine Hematology & Oncology
DX: C50.412 Malignant neoplasm of upper-outer quadrant of left female breast (principal); Z17.0 Estrogen receptor positive status [ER+]
CPT/HCPCS: 36415; 80053; 85025; 86300

== ENCOUNTER 2025-01-20 15:04 | Outpatient (CLI) | payer MEDICARE, SELFPAY ==
--- NOTE | ~2025-01-20 | MM_ITS ---
EXAMINATION: MM screening [facility] HISTORY: Screening TECHNIQUE: Craniocaudal and mediolateral oblique 3-D tomosynthesis images were obtained and synthetic 2-D images were generated. CAD analysis was submitted and interpreted. COMPARISON: Comparison to multiple prior studies sequentially, with oldest reviewed study dated 07/2020. BREAST PARENCHYMAL COMPOSITION: Not dense: There are scattered areas of fibroglandular density. FINDINGS: Stable architectural distortion of the left breast consistent with prior lumpectomy in the upper outer quadrant. There is no evidence of suspicious mass, calcification, or architectural distor tion to suggest malignancy in either breast. There has been no suspicious interval change. IMPRESSION: 1. No mammographic evidence of malignancy. 2. Recommend routine screening mammography in one year. BI-RADS Category 2: Benign finding(s). Reviewed, dictated and finalized at location B.
--- OUTSIDE RECORDS SUMMARY | 2025-01-20 15:07 | XMS_ITS | Clinical Summary ---
Author Organization [facility] Address [address] [place] [address] Care Team Providers Care Life Insurance Sales Agent Name Role Phone Safia Epstein MD Primary Care Provider Nancy Monson APNP Unavailable Unavailab gunjan Musa MD, Sylvester Unavailable [phone] Evelyn Hurtado [facility]- Unavailable [phone] Allergies Active Allergy Reactions Criticality Noted Date Comments Atorvastatin Myalgias 12/14/2015 Ezetimibe Myalgias 12/14/2015 Lovastatin Myalgias 12/14/2015 Pravastatin Myalgias 12/14/2015 Rosuvastatin Myalgias 12/14/2015 Simvastatin Myalgias 12/14/2015 Statins Myalgias 01/09/2021 Sulfa Antibiotics Unknown 08/23/2016 Medications loratadine 10 MG tablet Take 1 tablet (10 mg total) by mouth daily as needed. 1 Active anastrozole 1 MG tablet Take 1 tablet by mouth daily. 0 Active Nutritional Supplements (VITAMIN D BOOSTER OR) Active ALPRAZolam 0.5 MG tablet Take 0.5 tablets (0.25 mg total) by mouth 2 (two) times a day. Active levothyroxine 100 MCG tablet Take 1 tablet (100 mcg total) by mouth daily. 1 Active pantoprazole EC (PROTONIX) 40 MG tablet Take 1 tablet (40 mg total) by mouth daily. 4 Active busPIRone (BUSPAR) 15 MG tablet Take 1 tablet (15 mg total) by mouth 2 (two) times daily. Active Vitamin D3 (CHOLECALCIFEROL ) 50 mcg tablet Take 1 tablet (50 mcg total) by mouth daily. Active psyllium 0.52 g capsule Take 2 capsules (1,040 mg total) by mouth daily. Active cloNIDine (CATAPRES) 0.1 MG tablet Take 1 tablet (0.1 mg total) by mouth 3 (three) times daily as needed (BP>150/90). 4 Active losartan (COZAAR) 25 MG tablet Take 1 tablet (25 mg total) by mouth 2 (two) times daily. 180 tablet 3 5 Active metoprolol succinate ER (TOPROL-XL) 50 MG 24 hr tablet Take 0.5 tablets (25 mg total) by mouth daily. Take in am 30 tablet 3 5 Active metoprolol succinate ER (TOPROL-XL) 50 MG 24 hr tablet Take 1 tablet (50 mg total) by mouth daily. Take in pm 90 tablet 3 5 Active Active Problems Problem Noted Date Diagnosed Date Essential (primary) hypertension 10/06/2024 Hyperlipidemia, mixed 10/06/2024 Immunizations Immunization Administration Dates Next Due MODERNA COVID-19 (12+) MRNA, LNP-S, PF, 100 MCG/ 0.5 ML DOSE 09/08/2020,08/11/2020 Family History Medical History Relation Comments Stroke Father Breast Cancer Sister Colon Cancer Sister Relation Status Comments Father Sister Social History Tobacco Use Types Packs/Day Years Used Date Smoking Tobacco: Never Smokeless Tobacco: Never Alcohol Use Standard Drinks/Week Comments Never 0 (1 standard drink = 0.6 oz pur e alcohol) Comments No Sex and Gender Information Value Date Recorded Sex Assigned at Not on file Legal Sex Female 9:34 PM CDT Gender Identity Not on file Sexual Orientation Not on file Occupation Industry Job Start Date Job End Date Not on file Not on file Not on file Not on file Last Filed Vital Signs Vital Sign Reading Time Taken Comments Blood Pressure 122/62 10/06/2024 12:59 PM CDT Pulse 65 10/06/2024 12:59 PM CDT Temperature 36.1 C (97 F) 10/22/2018 11:55 AM CDT Respiratory Rate 17 10/06/2024 12:59 PM CDT Oxygen Saturation 95% 10/06/2024 12:59 PM CDT Inhaled Oxygen Concentration - - Weight 83.9 kg (185 lb) 10/06/2024 12:59 PM CDT Height 165.1 cm (5' 5) 10/06/2024 12:59 PM CDT Body Mass Index 30.79 10/06/2024 12:59 PM CDT Plan of Treatment Health Maintenance Due Date Last Done Comments Hepatitis C 1963 Annual Medicare Wellness Visit 2010 Zoster Vaccines (2 of 3) 07/26/2015 015, 05/20/2015, 05/06/2015 COVID-19 Vaccine ( season) 2024 05/11/2024, 12/05/2021, 05/08/2021, Additional history exists DTaP, Tdap and Td Vaccines (2 - Td or Tdap) 05/19/2034 05/19/2024, 11/03/2010 Pneumococcal Vaccine: 50+ Years Completed 06/05/2015, 03/06/2013 RSV Immunization or 60+ Years Completed 05/06/2023 Dexa Scan (General) Completed 06/20/2024 Meningococcal B Vaccine Aged Out No l onger eligible based on patient's age to complete this topic Meningococcal Vaccine Aged Out No bradnen abel eligible based on patient's age to complete this topic RSV Immunizations Under 20 Months Aged Out No longer eligible based on patient's age to complete this topic Procedures Procedure Name Priority Date/Time Associated Diagnosis Comments BONE DENSITY/DEXA Routine 06/20/2024 1:3 6 PM JUNIOR PROJECT COORDINATOR Osteopenia of multiple sites from Last 3 Months or Most Recently Relevant to Health Maintenance Results * BONE DENSITY/DEXA (06/20/2024 1:36 PM JUNIOR PROJECT COORDINATOR) Anatomical Region Laterality Modality Bone Bone Density 06/20/2024 10:5 9 PM JUNIOR PROJECT COORDINATOR Impressions 06/20/2024 11:02 PM JUNIOR PROJECT COORDINATOR Impression: Low bone mass (osteopenia). Referred By: JAMA OLIVA Interpreted By: Naga Wheat DO, 06/20/2024 10:59 PM Narrative 06/20/2024 11:02 PM JUNIOR PROJECT COORDINATOR [place] [id number] [facility] [place] [address] Examination: DEXA Bone densitometry Clinical history: Postmenopausal. Osteoporosis screening. Technique: DEXA bone minimal density evaluation was performed in the AP projection over the lumbar spine and over both hips in the AP projection utilizing standard imaging techniques. COMPARISON: None. Assessment: The BMD measured at the AP spine L1-L4 is 0.968 g/cm2 with a T-score of -0.7 and a Z-Score of 1.9. The BMD of the total left femur is 0.807 g/cm2, the femoral neck measures 0.578 g/cm2, with a T-score of -2.4 and a Z-Score of -0.2. The BMD of the total right femur is 0.862 g/cm2, the femoral neck measures 0.589 g/cm2, with a T-score of -2.3 and a Z-Score of -0.1. Based upon the above measurements, the patient has low bone mass. Per FRAX, the patient's ten-year risk of major osteoporotic fracture is 17%. The 10 year risk of hip fracture is 5.4%. Based on these results, a followup exam is recommended in 2 years or sooner if clinically indicated. Procedure Note Naga Wheat DO - 06/20/2024 [facility] [address] [place] [address] Examination: DEXA Bone densitometry Clinical history: Postmenopausal. Osteoporosis screening. Technique: DEXA bone minimal density evaluation was performed in the APprojection over the lumbar spine and over both hips in the AP projectionutilizing standard imaging techniques. COMPARISON: None. Assessment: The BMD measured at the AP spine L1-L4 is 0.968 g/cm2 with a T-score of-0.7 and a Z-Score of 1.9. The BMD of the total left femur is 0.807 g/cm2, the femoral neck measures0.578 g/cm2, with a T-score of -2.4 and a Z-Score of -0.2. The BMD of the total right femur is 0.862 g/cm2, the femoral neck measures0.589 g/cm2, with a T-score of -2.3 and a Z-Score of -0.1. Based upon the above measurements, the patient has low bone mass. Per FRAX, the patient's ten-year risk of major osteoporotic fracture is17%. The 10 year risk of hip fracture is 5.4%. Based on these results, a followup exam is recommended in 2 years orsooner if clinically indicated. Impression: Low bone mass (osteopenia). Referred By: JAMA OLIVA Interpreted By: Naga Wheat DO, 06/20/2024 10:59 PM Jama Oliva MD DEXA Final Result from Last 3 Months or Most Recently Relevant to Health Maintenance Insurance [employer] Care Teams Life Insurance Sales Agent Relationship Specialty Start Date End Date Safia Epstein MD [address] [place] [address] PCP - General FAMILY PRACTICE 10/22/18 Nancy Monson APNP [address] [place] [address] Title Checker NURSE PRACTITIONER 01/08/21 Sylvester Callejas MD [address] [place] [address] [place] Title Checker INTERVENTIONAL CARDIOLOGY 01/08/21 Evelyn Hurtado, ANP- [address] [place] [address] [facility] 11/18/23
--- OUTSIDE RECORDS SUMMARY | 2025-01-20 15:08 | XMS_ITS | Patient Health Record ---
Author Organization Formerly [facility] [place] Address [address] [place] [address] Care Team Providers Care Skin Care Therapist Name Role Phone Dr. Safia Epstein Primary Care Provider [phone] Reynold Ochoa Unavailable [phone] Evelyn Hurtado Unavailable [phone] Migration, Provider Unavailable Unavailable Allergies Allergen (clinical drug ingredient) Drug/Non Drug Allergy documented on EMR Reaction Allergy Type Onset Date Status alendronate Fosamax Unknown Drug Allergy 03/01/2024 Acti ve ezetimibe Zetia Unknown Drug Allergy 12/12/2020 Active Substance with 4-kxtxmmr-2-methylg lutaryl-coenzyme A reductase inhibitor mechanism of action (substance) Statins muscle cramps including crestor Drug Allergy 03/24/2024 Active Results Component Value Reference Range Notes CBC w/ Diff Reviewed date:05/13/2024 12:00:00 AM Interpretation: Performing Lab: Notes/Report: Basophil Auto 1.0 % Eos Absolute 0.1 x10*3/mcL Eosinophil Auto 3.4 % Hct 41.6 % Hgb 13.6 g/dL Lymph Absolute 1.3 x10*3/mcL Lymph Auto 29.5 % MCH 29.0 pg MCHC 32.6 g/dL MCV 89.2 fL [place] Absolute 0.5 x10*3/mcL [place] Auto 11.2 % MPV 9.5 fL Neutro [...] Low oxygen saturatio n (R79.81) Referral Organization [facility] Referring Provider First Name Dr. Baig Referring Provider Last Name [place] Referring Provider [facility] jovani Referred Provider [facility], [place] Referred Provider Specialty Ear, nose an d throat surgeon General Notes Danuta Hou 0 07/26/2024 08:30:18 AM ORTHOTIC/PROSTHETIC PRACTITIONER >Faxed referral to [place] [facility] Brooke 07/27/2024 09:06:33 AM ORTHOTIC/PROSTHETIC PRACTITIONER >Patient is scheduled for an appointment on 08-10-2024 at 10:45 am with Adrianna Lauren. Referral Priority Routine Referral Appointment Date 08/10/2024 Medications Medication SIG (Take, Route, Frequency, Duration) Notes Start Date End Date Status busPIRone HCl 15 MG Tablet 1 tablet Orally Twice a day; Duration: 90 days Active cloNIDine HCl 0.1 MG Tablet 1/2 to 1 Oral three times a day; Duration: 0 04/28/2024 Active Lidocaine 5 % Patch 1 External every day; Duration: 0 04/28/2024 Active Nitroglycerin 0.4 MG Tablet Sublingual Sublingual; Duration: 0 01/03/2021 Active Ocuvite Adult 50 Plus oral; Duration: 0 *Reorder from [email or web address] for eRx and Interaction Alerts* 12/07/2020 Active Metoprolol Succinate ER 50 MG Tablet Extended Release 24 Hour 1/2 tab in am and 1 tab in pm Orally; Duration: 90 days Active Levothyroxine Sodium 100 MCG Tablet 1 tablet in the morning on an empty stomach Orally Once a day Active Vitamin D2 oral; Duration: 0 *Pick strength -form from [email or web address] for eRX* 12/12/2020 Active Metamucil oral; Duration: 0 *Pick strength -form from [email or web address] for eRX* 12/07/2020 Active ALPRAZolam 0.5 MG Tablet 1/2 Oral two times a day; Duration: 30 days ,PRN Reason:for anxiety 12/19/2024 Active Anastrozole 1 MG Tablet 1 Oral every day; Duration: 0 12/07/2020 Active Vitamin D3 Ultra Strength 125 MCG (5000 UT) Capsule 1 Oral every day; Duration: 0 10/24/2021 Active Aspirin Adult Low Strength 81 MG Tablet Delayed Release 1 Oral every day; Duration: 0 12/07/2020 Active Pantoprazole Sodium 40 MG Tablet Delayed Release 1 tablet 1/2 to 1 hour before morning meal Orally Once a day; Duration: 90 days Active Metoprolol Succinate 25 MG Capsule ER 24 Hour Sprinkle 1 capsule Orally Once a day Active Losartan Potassium 25 MG Tablet 1 tablet Oral Once a day; Duration: 90 days 06/06/2024 Active Immunizations Vaccine Route Administration Date Status Comme nts Zoster Unknown 05/06/2015 Administered ,sourcename : Historical information -from public agency Source VFC Code: : Tdap Unknown 11/03/2010 Administered ,sourcename : Historical information -from public agency Source VFC Code: : Tdap IM Intramuscular 05/19/2024 Administered ,sourc ename : New immunization record ,immstatus : Complete RSV-MAb (Respiratory syncytial virus immune globulin) IM Intramuscular 05/06/2023 Administered ,sourcename : New immunization record ,immstatus : Complete Pneumococcal polysaccharide PPV23 Unknown 03/06/2013 Administered ,sourcename : Historical information -from public agency Source VFC Code: : Pneumococcal conjugate PCV 13 Unknown 08/06/2014 Administered ,sourcename : Historical information -from public agency Source VFC Code: : [employer] Covid-19 Vaccine 1st dose IM Intramuscular 05/11/2024 Administered ,sourcename : N ew immunization record ,immstatus : Complete Moderna Covid-19 Vaccine 1st dose Unknown 08/11/2020 Administered ,sourcename : Historical information -from public agency Source VFC Code: : Moderna Covid-19 Vaccine 1st dose Unknown 09/08/2020 Administered ,sourcename : Historical information -from public agency Source VFC Code: : Moderna Covid-19 Vaccine 1st dose Unknown 05/08/2021 Administered ,sourcename : Historical information -from public agency Source VFC Code: : Influenza, high-dose seasonal, [...] N ew immunization record ,immstatus : Complete Social History Tobacco Use: Social History Observation Description Date Details (start date - stop date) Never Smoker NA - NA Social History Household: Social Info Question Answer Notes Household Marital status: Drug/Alcohol: Social Info Question Answer Notes AUDIT-C (Standard) Did you have a drink containing alcohol in the past year? No Points 0 Interpretation Negative Tobacco Use: Social Info Question Answer Notes Tobacco Control (Standard) Tobacco use: Nonsmoker Additional Details Category Social Info Options Details Miscellaneous: Occupation: retired Problems Problem Type SNOMED Code ICD Code Onset Dates Problem Status W/U Status Risk Notes Problem Interstitial emphysema (85267412) Interstitial emphysema (518.1) 08/16/19 19 Active confirmed Problem Menopausal symptom (74840551) Symptomatic menopausal or female climacteric states (627.2) 10/30/19 17 Active confirmed Problem Malignant neoplasm of female breast (229226544) Malignant neoplasm of unspecified site of unspecified female breast (C50.919) 04/19/20 21 Active confirmed Problem Hypothyroidism (70346682) Hypothyroidism, unspecified (E03.9) 01/12/20 21 Active confirmed Problem Vitamin D deficiency (46525255) Vitamin D deficiency, unspecified (E55.9) 04/19/20 21 Active confirmed Problem Hyperlipidemia (06408276) Hyperlipidemia, unspecified (E78.5) 04/19/20 21 Active confirmed Problem Anxiety disorder (992703912) Anxiety disorder, unspecified (F41.9) 01/04/20 21 Active confirmed Problem Primary insomnia (6092619) Primary insomnia (F51.01) Active confirmed Problem Insomnia (121370747) Insomnia, unspecified (G47.00) 10/25/19 22 Active confirmed Problem Rheumatic tricuspid insufficiency (32624265) Rheumatic tricuspid insufficiency (I07.1) 01/29/20 23 Active confirmed Problem Essential hypertension (40923019) Essential (primary) hypertension (I10) 01/04/20 21 Active confirmed Problem 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, 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) 01/03/20 23 Active confirmed Problem Gastro-esophageal reflux disease without esophagitis (375421106) Gastro-esophagea l reflux disease without esophagitis (K21.9) 01/04/20 21 Active confirmed Problem Acquired hammer toe of right foot (5332693571184896) Other hammer toe(s) (acquired), right foot (M20.41) Active confirmed Problem Acquired hammer toe of left foot (5246796030406997) Other hammer toe(s) (acquired), left foot (M20.42) Active confirmed Problem Pain of left knee joint (finding) (163134097682502) Pain in left knee (M25.562) 07/15/19 24 Active confirmed Problem Scoliosis (526758509) Scoliosis, unspecified (M41.9) 04/22/20 24 Active confirmed Problem Spinal stenosis (37569011) Spinal stenosis, site unspecified (M48.00) 05/02/20 24 Active confirmed Lumbar Problem Cervicalgia (88131485) Cervicalgia (M54.2) 04/19/20 21 Active confirmed Problem Right side sciatica (833065342380860) Sciatica, right side (M54.31) 04/05/20 24 Active confirmed Problem Age-related osteoporosis (021600293) Age-related osteoporosis without current pathological fracture (M81.0) 11/10/19 24 Active confirmed Problem Palpitations (61319893) Palpitations (R00.2) 02/08/20 24 Active confirmed Problem Personal history of primary malignant neoplasm of breast (497553840) Personal history of malignant neoplasm of breast (Z85.3) 12/11/19 22 Active confirmed Problem History of malignant neoplasm (779540464) Personal history of malignant neoplasm, unspecified (Z85.9) 05/02/20 24 Active confirmed Problem Spinal stenosis of lumbar region (88188081) Spinal stenosis, lumbar region without neurogenic claudication (M48.061) 09/12/19 23 Active confirmed Problem Prediabetes (166306730) Prediabetes (R73.03) 01/03/20 23 Active confirmed Vital Signs Heart Rate 62 /min 11/22/2024 Temperature 97.5 degrees Fahrenheit 11/22/2024 Respiratory Rate 18 /min 11/22/2024 Height-cm 162.56 cm 11/22/2024 Blood pressure diastolic 72 mm Hg 11/22/2024 Oximetry 96 % 11/22/2024 Weight-kg 84.1 kg 11/22/2024 Height 64.00 in 11/22/2024 Blood pressure systolic 130 mm Hg 11/22/2024 Weight 185.4 lbs 11/22/2024 BMI 31.82 kg/m2 11/22/2024 Encounters Encounter Location Date Provider Diagnosis [address] [address] 02/08/2024 Evelyn Hurtado Dependent relative needing care at home Z63.6 ; Primary exertional headache G44.84 ; Palpitations R00.2 ; Anxiety disorder, unspecified F41.9 and Essential (primary) hypertension I10 [address] [address] 04/05/2024 Evelyn Hurtado Sciatica, right side M54.[address] [address] 04/12/2024 Provider Migration Spinal stenosis, lumbar region without neurogenic claudication M48.061 ; Sciatica, right side M54.31 and Dorsalgia, unspecified M54.[address] [address] 04/14/2024 Provider Migration Spinal stenosis, lumbar region without neurogenic claudication M48.061 and Sciatica, right side M54.[address] [address] 04/18/2024 Provider Migration Dorsalgia, unspecified M54.9 ; Spinal stenosis, lumbar region without neurogenic claudication M48.061 and Paresthesia of skin R20.[address] [address] 04/22/2024 Dr. Safia Epstein Sciatica, right side M54.31 ; Low back pain, unspecified M54.50 ; Spinal stenosis, lumbar region without neurogenic claudication M48.061 ; Personal history of malignant neoplasm of breast Z85.3 ; Encounter for immunization Z23 and Scoliosis, unspecified M41.[address] [address] 04/28/2024 Dr. Safia Epstein Spinal stenosis, lumbar region without neurogenic claudication M48.061 and Essential (primary) hypertension I10 [address] [address] 05/02/2024 Provider Migration Personal history of malignant neoplasm, unspecified Z85.9 ; Spinal stenosis, site unspecified M48.00 and Spinal stenosis, lumbar region without neurogenic claudication M48.[address] [address] 05/11/2024 Dr. Safia Epstein Encounter for immunization Z23 ; Vitamin D deficiency, unspecified E55.9 ; Essential (primary) hypertension I10 ; Hypothyroidism, unspecified E03.9 ; Hyperlipidemia, unspecified E78.5 and Prediabetes R73.[address] [address] 05/19/2024 Evelyn Hurtado Hyperlipidemia, unspecified E78.5 ; [...] quadrant pain R10.11 and Headache, unspecified R51.[address] [address] 05/24/2024 Provider Migration Spinal stenosis, lumbar region without neurogenic claudication M48.061 and Headache, unspecified R51.[address] [address] 06/06/2024 Dr. Safia Epstein [address] [address] 07/01/2024 Dr. Safia Epstein Anxiety disorder, unspecified F41.9 ; Essential (primary) hypertension I10 ; Primary insomnia F51.01 ; Other specified disorders of bone density and structure, unspecified site M85.80 and Asymptomatic menopausal state Z78.[address] [address] 08/31/2024 Reynold Ochoa Hammer toe of second toe of left foot M20.[address] [address] 09/07/2024 Dr. Safia Epstein Cellulitis of left toe L03.032 ; Ingrown nail L60.0 ; Other hammer toe(s) (acquired), right foot M20.41 ; Other hammer toe(s) (acquired), left foot M20.42 and Actinic keratosis L57.[address] [address] 09/16/2024 Dr. Safai Epstein Paresthesia R20.2 ; Ingrown nail L60.0 and Essential (primary) hypertension I10 [address] [address] 10/28/2024 Dr. Safia Epstein Essential (primary) hypertension I10 [address] [address] 11/22/2024 Evelyn Hurtado Essential (primary) hypertension I10 ; Anxiety disorder, unspecified F41.9 ; Hypothyroidism, unspecified E03.9 and Gastro-esophageal reflux disease without esophagitis K21.[address] [address] 06/04/2024 Provider Migration [address] [address] 06/05/2024 Val Villalpando [address] [address] 06/21/2024 Dr. Baig [address] [address] 07/19/2024 Evelyn Hurtado [address] [address] 08/12/2024 Dr. Safia Epstein [address] [address] 08/16/2024 Dr. Baig [address] [address] 08/22/2024 Dr. Safia Epstein [address] [address] 09/07/2024 Dr. Baig [address] [address] 09/29/2024 Dr. Safia Epstein [address] [address] 12/19/2024 Dr. Safia Epstein [address] [address] 01/13/2025 Dr. Safia Epstein Essential (primary) hypertension I10 [address] [address] 01/17/2025 Dr. Safia Epstein Assessments Encounter Date Diagnosis (ICD Code) Assessment Notes Treatment Notes Treatment Clinical Notes Section Notes 01/13/2025 Essential (primary) hypertension (ICD-10 - I10) 05/11/2024 Hypothyroidism, unspecified (ICD-10 - E03.9) 05/11/2024 Vitamin D deficiency, unspecified (ICD-10 - E55.9) 05/11/2024 Hyperlipidemia, unspecified (ICD-10 - E78.5) 05/11/2024 Essential (primary) hypertension (ICD-10 - I10) 05/11/2024 Encounter for immunization (ICD-10 - Z23) 05/11/2024 Prediabetes (ICD-10 - R73.03) 04/28/2024 Essential (primary) hypertension (ICD-10 - I10) [...] Low back pain, unspecified (ICD-10 - M54.50) 04/05/2024 Sciatica, right side (ICD-10 - M54.31) 09/07/2024 Cellulitis of left toe (ICD-10 - L03.032) stop cephalexin start augmentin keep epsom salt soaks 05/24/2024 Spinal stenosis, lumbar region without neurogenic claudication (ICD-10 - M48.061) 05/24/2024 Headache, unspecified (ICD-10 - R51.9) 05/19/2024 Other obesity due to excess calories [...] M48.061) 05/19/2024 Headache, unspecified (ICD-10 - R51.9) 05/02/2024 Spinal stenosis, site unspecified (ICD-10 - M48.00) Lumbar 05/02/2024 Personal history of malignant neoplasm, unspecified (ICD-10 - Z85.9) 05/02/2024 Spinal stenosis, lumbar region without neurogenic claudication (ICD-10 - M48.061) 04/14/2024 Sciatica, right side (ICD-10 - M54.31) 04/14/2024 Spinal stenosis, lumbar region without neurogenic claudication (ICD-10 - M48.061) 02/08/2024 Anxiety disorder, unspecified (ICD-10 - F41.9) 02/08/2024 Primary exertional headache (ICD-10 - G44.84) 02/08/2024 Essential (primary) hypertension (ICD-10 - I10) 02/08/2024 Palpitations (ICD-10 - R00.2) 02/08/2024 Dependent relative needing care at home (ICD-10 - Z63.6) 04/12/2024 Sciatica, right side (ICD-10 - M54.31) 04/12/2024 Dorsalgia, unspecified (ICD-10 - M54.9) 04/12/2024 Spinal stenosis, lumbar region without neurogenic claudication (ICD-10 - M48.061) 04/18/2024 Dorsalgia, unspecified (ICD-10 - M54.9) 04/18/2024 Paresthesia of skin (ICD-10 - R20.2) 04/18/2024 Spinal stenosis, lumbar region without neurogenic claudication (ICD-10 - M48.061) 09/16/2024 Paresthesia (ICD-10 - R20.2) 09/16/2024 Ingrown nail (ICD-10 - L60.0) 10/28/2024 Essential (primary) hypertension (ICD-10 - I10) 11/22/2024 Essential (primary) hypertension (ICD-10 - I10) -She brought in RPM BP cuff to compare readings with manual BP cuff. It is almost the same reading. BP has been on avg SBP 120-140, DBP 60-70s. Will have her continue to monitor BP through RPM. No changes with losartan and metoprolol 09/07/2024 Ingrown nail (ICD-10 - L60.0) plan cotton packing to allow nail to grow out in the next few weeks. f/u in 2 weeks. 08/31/2024 Hammer toe of second toe of left foot (ICD-10 - M20.42) Cephalexin on hold, toe is erythematous likely due to rubbing and irritation by contact from big toe. Wear loose shoes and soak foot in epsom salt baths multiple times per day. Irritation and pain should improve with resting area and preventing rubbing by putting barrier layer between toes. If not improving with conservative treatment or worsening start antibiotic. Call or return to office if continuing to worsen with treatment. 07/01/2024 Anxiety disorder, unspecified (ICD-10 - F41.9) 07/01/2024 Essential (primary) hypertension (ICD-10 - I10) 11/22/2024 Anxiety disorder, unspecified (ICD-10 - F41.9) - Stress levels are high with ill and having to manage all things by herself, but anxiety is being managed with current medication regimen.- Continue current medication of buspar BID with PRN alprazolam 07/01/2024 Primary insomnia (ICD-10 - F51.01) 09/07/2024 Other hammer toe(s) (acquired), right foot (ICD-10 - M20.41) 09/16/2024 Essential (primary) hypertension (ICD-10 - I10) 09/07/2024 Other hammer toe(s) (acquired), left foot (ICD-10 - M20.42) use toe spacer to protect toes from touching. 11/22/2024 Hypothyroidism, unspecified (ICD-10 - E03.9) 07/01/2024 Other specified disorders of bone density and structure, unspecified site (ICD-10 - M85.80) 07/01/2024 Asymptomatic menopausal state (ICD-10 - Z78.0) 11/22/2024 Gastro-esophageal reflux disease without esophagitis (ICD-10 - K21.9) 09/07/2024 Actinic keratosis (ICD-10 - L57.0) Cryotherapy instructions Patient was informed that some mild stinging is normal for 1-2 days. Do not break any blisters that may form as this will reduce infection risk. If blisters do break, apply topical antibiotic ointment until healed. Call the office with any questions or concerns. 07/01/2024 Other Hypertension: - Blood pressure fluctuates, [...] if alprazolam reduction leads to sleep issues. 09/16/2024 Other Ingrown Toenail - Ingrown toenail with a nail fragment causing discomfort and potential infection. - Use a nail spade to push the skin away from the nail and insert cotton to prevent the nail from getting stuck. Continue this process for about a week. Epsom salt soaks or showers recommended to keep the area soft. - Use a nail file to gently file down the nail fragment if accessible. Nerve Twitches in Breast - Likely nerve-related, possibly due to muscle spasms or a pinched nerve in the pectoral muscle. Not a standard sign of breast cancer. - If symptoms persist for more than a week, consider using a heating pad and stretching. If no improvement, recommend an exam and mammogram. Losartan Refill - Refill needed for losartan 25 mg, taken twice daily. Plan Of Treatment Next Appt Details Provider Name:Evelyn balbuena, 05/09/2025 10:30:00 AM, [address] [facility], [place], [address], [phone] Insurance Providers Payer Name Payer Address Payer Phone Subscriber Number Group Number Insured Name Patient Relationship to Insured Coverage Start Date Coverage End Date [employer] Advantage Ppo [address] [place] [address] [id number] Mary Lou Patel Self - patient is the insured 4 Medical (General) History Medical History History ICD Code Malignant neoplasm of unspecified site o f unspecified female breast C50.919 Hypothyroidism, unspecified E03.9 Vitamin D deficiency, unspecified E55.9 Hyperlipidemia, unspecified E78.5 Anxiety disorder, unspecified F41.9 Insomnia, unspecified G47.00 Rheumatic tricuspid insufficiency I07.1 Essential (primary) hypertension I10 Interstitial pulmonary disease, unspecif ied J84.9 Gastro-esophageal reflux disease without esophagitis K21.9 Pain in left knee M25.562 Scoliosis, unspecified M41.9 Spinal stenosis, site unspecified M48.00 Sciatica, right side M54.31 Age-related osteoporosis without current pathological fracture M81.0 Palpitations R00.2 Personal history of malignant neoplasm o f breast Z85.3 Personal history of malignant neoplasm, unspecified Z85.9 Spinal stenosis, lumbar region without n eurogenic claudication M48.061 Prediabetes R73.03 Cough, unspecified R05.9 Cervicalgia M54.2 Interstitial emphysema 518.1 Symptomatic menopausal or female climact sole states 627.2 Primary insomnia F51.01 Other hammer toe(s) (acquired), right fo ot M20.41 Other hammer toe(s) (acquired), left brayan t M20.42 Surgical History Surgery Date(Month/Year) (05309) BIOPSY/REMOVAL LYMPH NODES ,note s : left - malignant (28092) COMP SCREEN MAMMOGRAM ADD-ON ,no rahul : Nl. repeat in 1 yr. (59560) BONE IMAGING WHOLE BODY 04/16/20 20 Tubal ligation 1975 (69106) REMOVAL OF BREAST LESION ,notes : right - Benign tumor 1989 (84083) CARPAL TUNNEL SURGERY ,notes : B ilateral 2003 (85574) COLOGUARD SCREENING ,notes : neg ative 09/2020 (89681) DOPPLER ECHO EXAM HE ART ,notes : Mild Tricups. regurg. EF 67% 10/2017 colonoscopy ,notes : Nl 01/2010 (18432) DXA BONE DENSITY STUDY ,notes : Severe osteopenia 02/2021 (61240) REMOVAL OF GALLBLADDER 03/2012 (3130F) UPPER GI ENDOSCOPY P ERFORMED ,notes : distal esophageal stenosis, Sm Hiatal hernia- Repeat in 2 years 04/02/2018
--- OUTSIDE RECORDS SUMMARY | 2025-01-20 15:08 | XMS_ITS | Encounter Summary ---
Author Organization [facility] Address [address] [place] [address] Care Team Providers Care Uke Operator Name Role Phone Safia Epstein MD Primary Care Provider Encounter Details Date Type Department Care Team (Late Contact Info) Description 11/02/2019 Chart Note [facility] Radiation Therapy [address] [place] [address] [place] [address] [place] [address] Social History Tobacco Use Types [...] Encounters Date Type Department Care Team (Late Contact Info) Description 02/22/2025 1:15 PM CDT Office Visit [facility] Oncology and Hematology - [place]ef [facility] [address] [address] Jama Oliva MD [address] [facility] [address] [place] [address] documented as of this encounter Visit Diagnoses Not on filedocumented in this encounter Care Teams Uke Operator Relationship Specialty Start Date End Date Safia Epstein MD [address] [facility] [place] [address] PCP - General Family Practice 10/28/19 documented as of this encounter
--- OUTSIDE RECORDS SUMMARY | 2025-01-20 15:08 | XMS_ITS | Encounter Summary ---
Author Organization [facility] Address [address] [place] [address] Care Team Providers Care Accounting Practice Manager Name Role Phone Safia Epstein MD Primary Care Provider Encounter Details Date Type Department Care Team (Late st Contact Info) Description 01/18/2025 External Device Data [facility] ABSTRACTION Provider, Abstract NO ADDRESS ON FILE Social History Tobacco Use Types Packs/Day Years Used Date Smoking Tobacco: Never Smokeless Tobacco: Never Alcohol Use Standard Drinks/Week Comments Never 0 (1 standard drink = 0.6 oz pur e alcohol) Comments No Sex and Gender Information Value Date Recorded Sex Assigned at Not on file Legal Sex Female 10:35 AM CDT Gender Identity Not on file Sexual Orientation Not on file documented as of this encounter Plan of Treatment Upcoming Encounters Date Type Department Care Team (Late st Contact Info) Description 02/22/2025 1:15 PM CDT Office Visit [facility] Oncology and Hematology - [place] [address] [facility] [address] [place] [address] Jama Oliva MD [address] [facility] [address] [place] [address] documented as of this encounter Visit Diagnoses Not on filedocumented in this encounter Care Teams Accounting Practice Manager Relationship Specialty Start Date End Date Safia Epstein MD [address] [place] [address] PCP - General Family Practice 10/28/19 documented as of this encounter
--- OUTSIDE RECORDS SUMMARY | 2025-01-20 15:08 | XMS_ITS | Clinical Summary ---
Author Organization [facility] Address [address] [place] [address] Care Team Providers Care Prize Coordinator Name Role Phone Safia Epstein MD Primary Care Provider Allergies Active Allergy Reactions Criticality Noted Date Comments Atorvastatin Muscle Pain Low 12/14/2015 Ezetimibe Muscle Pain Low 12/14/2015 Lovastatin Muscle Pain Low 12/14/2015 Pravastatin Muscle Pain Low 12/14/2015 Rosuvastatin Muscle Pain Low 12/14/2015 Simvastatin Muscle Pain Low 12/14/2015 Cyrnyog-Aia-Hrm Reductase Inhibitors Muscle Pain Low 12/28/2020 Statin [...] breast in female, estrogen receptor positive (CMS/HCC) TAKE 1 TABLET BY MOUTH EVERY DAY 90 Tablet 3 5 Active Active Problems Problem Noted Date Diagnosed Date Malignant neoplasm of upper- outer quadrant of left breast in female, estrogen receptor positive 11/02/2019 Encounters Date Type Department Care Team Description 01/18/2025 External Device Data ST[facility] ABSTRACTION Provider, Abstract 12/06/2024 External Device Data [facility] ABSTRACTION Provider, Abstract 11/29/2024 External Device Data [facility] ABSTRACTION Provider, Abstract 11/23/2024 External Device Data [facility] ABSTRACTION Provider, Abstract 11/22/2024 External Device Data ST[facility] ABSTRACTION Provider, Abstract from Last 3 Months Family History Medical [...] Sign Reading Time Taken Comments Blood Pressure 134/75 08/25/2024 12:56 PM [employer] Pulse 77 08/25/2024 12:56 PM [employer] Temperature 36.1 C (96.9 F) 08/25/2024 12:56 PM [employer] C[employer]IAN Respiratory Rate 15 08/25/2024 12:56 PM [employer] C[employer]IAN Oxygen Saturation 94% 08/25/2024 12:56 PM [employer] C[employer]IAN Inhaled Oxygen Concentration - - Weight 83.1 kg (183 lb 3.2 oz) 08/25/2024 12:56 PM [employer] C[employer] Height 165.1 cm (5' 5) 10/22/2021 9:54 AM CDT Body Mass Index 30.49 10/22/2021 9:54 AM CDT Plan of Treatment Upcoming Encounters Date Type Department Care Team (Late st Contact Info) Description 02/22/2025 1:15 PM CDT Office Visit [facility] Oncology and Hematology - Jozef [address] [facility] [address] [place] [address] Jama Oliva MD [address] [facility] [address] [place] [address] Health Maintenance Due Date Last Done Comments DTAP/TDAP/TD VACCINES (1 - Tdap) 1964 PNEUMOCOCCAL VACCINE 50+ YEA RS (1 of 1 - PCV) 1995 ZOSTER VACCINE (1 of 2) 1995 RSV VACCINE (60+ or ) (1 - 1-dose 75+ series) 2020 COVID-19 Vaccine (3 - 2023-2 5 season) 2024 09/08/2020, 08/11/2020 INFLUENZA VACCINE (#1) 2025 04/28/2024 OSTEOPOROSIS SCREENING 06/20/2029 , 06/20/2024, 09/17/2021, Additional history exists Insurance [employer] PPO MCR Care Teams Prize Coordinator Relationship Specialty Start Date End Date Safia Epstein MD [address] [place] [address] PCP - General Family Practice 10/28/19
--- OUTSIDE RECORDS SUMMARY | 2025-01-20 15:08 | XMS_ITS | Continuity of Care Document ---
Author Organization [facility] Address [address] [place] [phone] Phone Care Team Providers Care Chart Picker Name Role Phone Emily Mora APN Unavailable Unavailable Allergies, Adverse Reactions, Alerts Substance Reaction Status Criticality MECLIZINE HCL caused rectal bleeding Active No I nformation WARNIN allergy(ies) could not be collected because the type is not supported. Please contact the source practice for further details. Medications Medication Instructions Dosage Effective Dates (start - stop) Status Comments metoprolol tartrate 25 mg tablet take 1 tablet by oral route every day 25 MG - Active ketorolac 0.4 % eye drops instill 1 drop by ophthalmic route every day into affected eye(s) for up to 4 days following corneal refractive surgery 1 drop - Active Nephro-Lexie Rx 1 mg-60 mg-300 mcg tablet 1 tablet daily - Active folic acid 1 mg tablet take 1 tablet by oral route every day 1 MG - Active methotrexate sodium 2.5 mg tablet take 1 tablet by oral route once weekly - Active Vitamin B-12 1,000 mcg tablet take 1 Tablet by Oral route every day 1 Tablet - Active [employer] D 24 Hour 180 mg-240 mg tablet,extended release take 1 tablet by oral route every day on an empty stomach with glass of water 1.00 tablet - Active Green Tea capsule Take 1 capsule by mouth daily - Active diazepam 5 mg Tab 1/2 tab bid - Active simvastatin 40 mg Tab Take 1 every night at bedtime - Active omeprazole 20 mg Cap, Delayed Release Take once daily - Active loratadine 10 mg Tab Take once daily - Act miyl cholecalciferol (vitamin D3) 2,000 unit Tab take 1 every day - Active Probiotic 10 billion cell Cap 20B cells/QD - Active Aspir-81 81 mg Tab 1 QD - Active Procedures Procedure Date Offic/outpt E&m Estab Low-mod 1 Offic/outpt E&m New Mod-hi 45 6 Colorectal Ca Scrn Not Hi Risk 11 [facility] Facility Charge Offic/outpt E&m Estab Low-mod 1 Offic Cons New/estab Mod-4) Advance Directives Directive Yes / No Effective Date File Name No Information Encounters Encounter Description Practice Location Reason(s) For Visit Diagnoses Date Provider Providers Copied on Encounter [facility], [address] [place] [address], [id number] tel:[phone] [facility] No Information 5 Morgan Diaz. [address] [place] [address], [id number], [place]. tel:[phone] Offic/outpt E&m Estab Low-mod [facility], [address] [place] [address], [id number] tel:[phone] [facility] [employer] [facility] Anemia (chief complaint) Anemia due to chronic kidney disease, on chronic dialysisAnem ia in chronic kidney diseaseDepen dence on renal dialysis 1 Jose Guerrero. [address] [place] [address], [id number], [place]. tel:[phone] Referring Provider: Douglas Wing DO T, [address] [place], [address]. tel:[phone] Offic/outpt E&m New Mod-hi 45 [facility], [address] [place] [address], [id number] tel:[phone] [facility] [employer] [facility] Family Hx colon cancer (chief complaint) Encounter for screening for malignant neoplasm of colonFamily history of Ca of digestive organ 6 Neil Bear. [address] [place] [address], [id number], [place]. tel:[phone] [facility], [address] [place] [address], [id number] tel:[phone] [facility] isScreening for colon cancer 1 Neil Bear. [address] [place] [address], [id number], [place]. tel:[phone] [facility], [address] [place] [address], [id number] tel:[phone] [facility] No Information 1 [facility]. [address] [place] [address], [id number], [place]. tel:[phone] Referring Provider: Chema Frias, [address] [place] [address], [id number]. tel:[phone] Offic/outpt E&m Estab Low-mod [facility], [address] [place] [address], [id number] tel:[phone] [facility] isScreening for colon cancerHyperc holesterolem ia 1 Neil Bear. [address] [place] [address], [id number], [place]. tel:[phone] Offic Cons New/estab Mod-4) [facility] [employer] [facility], [address] [place] [address], [place], [place], [id number] tel:[phone] [facility] + stool 4 Neil Bear. [address] [place] [address], [id number], [place]. tel:[phone] Family History Family Member Type Diagnosis Age At Onset Son Problem (finding) Crohn's disease Problem (finding) No family history of Co branden polyps Paternal uncle Problem (finding) stomach or colon canc er Immunizations Vaccine Date Status Comments Flu (split) (3 yrs or older) administered Note: Invalid documented admin date was . ; Source: Other Provider pneumococcal polysaccharide vaccine, 23 valent administered Note: Invalid docume nted admin date was . ; Source: Other Provider SARS-COV-2 (COVID-19) vaccin e, mRNA, spike protein, LNP, preservative free, 100 mcg/0.5mL dose administered Source: Other Provid er SARS-COV-2 (COVID-19) vaccin e, mRNA, spike protein, LNP, preservative free, 30 mcg/0.3mL dose administered Source: Other Provid er Flu (split) (3 yrs or older) administered Source: Other Provider Payers Payer name Insurance type Covered green party ID Authoriza tion(s) No Information Social History Type Description Quantity Date Captured Comments Sex Female Smoking Status No Information Chief Complaint And Reason For Visit No Information Reason For Referral Reason For Referral No Information Plan Of Treatment Date Type Action Status Patient Education Using Your Medicines: C are Instructio~ completed History Of Present Illness Encounter Date Complaint History Of Prese nt Illness Anemia This is a 75-yea r-old woman who returns in hospital followup for anemia. The patient was seen in november of this year at [facility]. She was admitted following a near-syncopal episode. She was found to have acute kidney failure and anemia. She will pulmonary edema while in the hospital. Her been no visible bleeding. Iron studies were normal. Upper endoscopy was unremarkable.The patient is now on hemodialysis 3 times weekly. She is getting erythropoietin and iron infusions. She doesn't her hemoglobin is stable in the 9 range. She denies any digestive symptoms and has had no visible bleeding.Bone marrow biopsy done while in the hospital did not show any evidence of iron deficiency or myelodysplasia. Family Hx colon cancer Impressio n:70 y.o. woman, with family history of colon cancer (not first-degree relatives) and incomplete colonoscopies.Plan:Schedule CT colography.If unfeasible, plan repeat colonoscopy with MAC, with partner, allowing extra time.HPI:The patient is a 70 y.o. woman. Colonoscopy in 1999 was difficult and incomplete. subsequent barium enema was unremarkable. She returned in 2010 for repeat colonoscopy, then done with MAC. Procedure was again difficult due to a long, redundant colon, and looping. The IC valve was reached, but evaluation of cecum was incomplete. She returns now to discuss how to proceed.She continues to have some seasonal variations in her bowel function. When stools are frequent, excessive wiping occasionally leads to scant bleeding. Her appetite is good and weight stable.A paternal grandparent and uncle had colon cancer. Functional Status Date Functional Assessmen t No Information Instructions Date Instruction Additional Infor morelia Patient to return as needed. Rel ated to Dependence on renal dialysis Schedule CT colograp hy, fam. hx. CRC, hx. of incomplete colonoscopies Related to Encounter for screening for malignant neoplasm of colon Assessments Type Assessment Date No Information Patient Care Teams Name Effective Dates (start - stop) Status Members No Information
== END 2025-01-20 15:05 | disposition home or self-care (01) ==
PROVIDERS: PCP Family Medicine; Visit Provider Internal Medicine Hematology & Oncology
DX: Z12.31 Encounter for screening mammogram for malignant neoplasm of breast (principal)
CPT/HCPCS: 77063; 77067

== ENCOUNTER 2025-02-08 11:31 | Outpatient (CLI) | payer MEDICARE, SELFPAY ==
[2025-02-08 11:42] LABS: Hematocrit 42.2 % (37.0-47.0); Hemoglobin 13.6 g/dL (12.0-15.0); Immature Granulocyte Percent A 0.4 % (0-0.5); Lymphocytes Absolute Auto 1.63 K/mm3 (0.9-3.2); Mean Corpuscular HGB Conc 32.2 g/dl (32-36); Mean Corpuscular Hemoglobin 29.4 pg (26-34); Mean Corpuscular Volume 91.1 fl (80-100); Nucleated Red Blood Cells Absolute Auto 0.000 K/mm3 (0.0-0.012); Nucleated Red Blood Cells Perc 0.0 % (0.0-0.2); Platelet Count Result 204 k/mm3 (150-375); Red Blood Count 4.63 M/mm3 (4.2-5.4); White Blood Count 5.5 K/mm3 (4.5-10.0)
--- OUTSIDE RECORDS SUMMARY | 2025-02-08 12:13 | XMS_ITS | Patient Health Record ---
Author Organization [facility] Address [address] [place] [address] Care Team Providers Care Supervisor Stripping Name Role Phone Dr. Safia Epstein Primary Care Provider [phone] Reynold Ochoa Unavailable [phone] Evelyn Hurtado Unavailable [phone] Dr. Anurag Suero Unavailable [phone] Migration, Provider Unavailable Unavailable Allergies Allergen (clinical drug ingredient) Drug/Non Drug Allergy documented on EMR Reaction Allergy Type Onset Date Status alendronate Fosamax Unknown Drug Allergy 03/01/2024 Acti ve ezetimibe Zetia Unknown Drug Allergy 12/12/2020 Active Substance with 7-dgdfary-7-methylg lutaryl-coenzyme A reductase inhibitor mechanism of action [...] pg MCHC 32.6 g/dL MCV 89.2 fL Gentry Absolute 0.5 x10*3/mcL Gentry Auto 11.2 % MPV 9.5 fL Neutro [...] energy 1 If you checked off any problems, how difficult Not difficult at all have [...] overeating 0 Thoughts that you would be better off , or of hurting yourself 0 Trouble concentrating on things, such as reading the newspaper or watching television 0 Trouble falling or staying asleep, or sleeping too much 0 Urinalysis Reviewed date:02/01/2025 11:35:35 AM Interpretation: Performing Lab: Notes/Report: Specific [place] 1.020 pH 5.0 Glucose neg Urine Protein trace Occult Blood neg Bilirubin neg Urobilinogen,Semi-Qn normal Nitrite, Urine neg Ketones neg Leucocyte Esterase trace Urine Culture Reviewed date:02/04/2025 09:33:13 AM Interpretation: Performing Lab: Notes/Report: Test Performed by: [place] [address] Collections Clerk: DO Nilay Oliver Urine See Below Final No growth at 2 days. MAMMOGRAM, SCREENING Reviewed date:01/23/2025 10:10:07 AM Interpretation: Performing Lab: Notes/Report: Mammogram Birads Cat 2 Reason For Referral Reason O2 desat at night. U nsure if she has sleep apnea. Diagnosis 1 Low oxygen saturatio n (R79.81) Referral Organization [facility] Referring Provider First Name Dr. Baig Referring Provider Last Name Alexandria Referring Provider Speciality [facility] jovani Referred Provider [facility], [place] Referred Provider Specialty Ear, nose an d throat surgeon General Notes Danuta Hou 0 07/26/2024 08:30:18 AM METAL BASE BLOCKER >Faxed referral to [place] [facility], Caron [place] 07/27/2024 09:06:33 AM METAL BASE BLOCKER >Patient is scheduled for an appointment on 08-10-2024 at 10:45 am with Adrianna Lauren. Referral Priority Routine Referral Appointment Date 08/10/2024 Medications Medication SIG (Take, Route, Frequency, Duration) Notes Start Date End Date Status Metoprolol Succinate 25 MG Capsule ER 24 Hour Sprinkle 1 capsule Orally Once a day Active Levothyroxine Sodium 100 MCG Tablet 1 tablet in the morning on an empty stomach Orally Once a day Active cloNIDine HCl 0.1 MG Tablet 1/2 to 1 Oral three times a day; Duration: 0 04/28/2024 Active Nitroglycerin 0.4 MG Tablet Sublingual Sublingual; Duration: 0 01/03/2021 Active Lidocaine 5 % Patch 1 External every day; Duration: 0 04/28/2024 Active Aspirin Adult Low Strength 81 MG Tablet Delayed Release 1 Oral every day; Duration: 0 12/07/2020 Active Vitamin D3 Ultra Strength 125 MCG (5000 UT) Capsule 1 Oral every day; Duration: 0 10/24/2021 Active busPIRone HCl 15 MG Tablet 1 tablet Orally Twice a day; Duration: 90 days Active Metamucil oral; Duration: 0 *Pick strength -form from Surgient for eRX* 12/07/2020 Active Pantoprazole Sodium 40 MG Tablet Delayed Release 1 tablet 1/2 to 1 hour before morning meal Orally Once a day; Duration: 90 days Active ALPRAZolam 0.5 MG Tablet 1/2 Oral two times a day; Duration: 30 days ,PRN Reason:for anxiety 12/19/2024 Active Ocuvite Adult 50 Plus oral; Duration: 0 *Reorder from Surgient for eRx and Interaction Alerts* 12/07/2020 Active Vitamin D2 oral; Duration: 0 *Pick strength -form from Surgient for eRX* 12/12/2020 Active Anastrozole 1 MG Tablet 1 Oral every day; Duration: 0 12/07/2020 Active Losartan Potassium 25 MG Tablet 1 tablet Oral Once a day; Duration: 90 days 06/06/2024 Active Metoprolol Succinate ER 50 MG Tablet Extended Release 24 Hour 1/2 tab in am and 1 tab in pm Orally; Duration: 90 days Active Immunizations Vaccine Route Administration Date Status Comme nts Influenza, high dose seasonal Unknown 04/05/2020 Administered ,sourcename : Historical information -from public agency Source [facility] Code: : Influenza, high dose seasonal IM [...] -from public agency Source [facility] Code: : Pfizer-Biontech Covid-19 Vaccine 1st dose IM Intramuscular [...] -from public agency Source VFC Code: : Social History Tobacco Use: Social History Observation [...] Problem Status W/U Status Risk Notes Problem Primary insomnia (6919957) Primary insomnia (F51.01) Active confirmed Problem Acquired hammer toe of right foot (1841754501394968) Other hammer toe(s) (acquired), right foot (M20.41) Active confirmed Problem Acquired hammer toe of left foot (6790751046513885) Other hammer toe(s) (acquired), left foot (M20.42) Active confirmed Problem Malignant neoplasm of female breast (734324918) Malignant neoplasm of unspecified site of unspecified female breast (C50.919) 04/19/20 21 Active confirmed Problem Insomnia (453791957) Insomnia, unspecified (G47.00) 10/25/19 22 Active confirmed Problem Palpitations (69374482) Palpitations (R00.2) 02/08/20 24 Active confirmed Problem History of malignant neoplasm (800575102) Personal history of malignant neoplasm, unspecified (Z85.9) 05/02/20 24 Active confirmed Problem Anxiety disorder (401025679) Anxiety disorder, unspecified (F41.9) 01/04/20 21 Active confirmed Problem Interstitial emphysema (68711937) Interstitial emphysema (518.1) 08/16/19 19 Active confirmed Problem Personal history of primary malignant neoplasm of breast (870470742) Personal history of malignant neoplasm of breast (Z85.3) 12/11/19 22 Active confirmed Problem Vitamin D deficiency (09884346) Vitamin D deficiency, unspecified (E55.9) 04/19/20 21 Active confirmed Problem Hypothyroidism (54139081) Hypothyroidism, unspecified (E03.9) 01/12/20 21 Active confirmed Problem Age-related osteoporosis (070147679) Age-related osteoporosis without current pathological fracture (M81.0) 11/10/19 24 Active confirmed Problem Right side sciatica (305051716998741) Sciatica, right side (M54.31) 04/05/20 24 Active confirmed Problem Cervicalgia (63349017) Cervicalgia (M54.2) 04/19/20 21 Active confirmed Problem Spinal stenosis (59443112) Spinal stenosis, site unspecified (M48.00) 05/02/20 24 Active confirmed Lumbar Problem Pain of left knee joint (finding) (363813079490955) Pain in left knee (M25.562) 07/15/19 24 Active confirmed Problem Essential hypertension (19807444) Essential (primary) hypertension (I10) 01/04/20 21 Active confirmed Problem Rheumatic tricuspid insufficiency (55262933) Rheumatic tricuspid insufficiency (I07.1) 01/29/20 23 Active confirmed Problem Hyperlipidemia (02982681) Hyperlipidemia, unspecified (E78.5) 04/19/20 21 Active confirmed Problem Menopausal symptom (83650575) Symptomatic menopausal or female climacteric states (627.2) 10/30/19 17 Active confirmed Problem Prediabetes (992883013) Prediabetes (R73.03) 01/03/20 23 Active confirmed Problem Spinal stenosis of lumbar region (97902592) Spinal stenosis, lumbar region without neurogenic claudication (M48.061) 09/12/19 23 Active confirmed Problem Scoliosis (803554418) Scoliosis, unspecified (M41.9) 04/22/20 24 Active confirmed Problem Gastro-esophageal reflux disease without esophagitis (519152302) Gastro-esophagea l reflux disease without esophagitis (K21.9) 01/04/20 21 Active confirmed Problem 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, 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) 01/03/20 23 Active confirmed Vital Signs Heart Rate 78 /min 02/01/2025 Temperature 98.0 degrees Fahrenheit 02/01/2025 Respiratory Rate 18 /min 11/22/2024 Height-cm 162.56 cm 02/01/2025 Blood pressure diastolic 68 mm Hg 02/01/2025 Oximetry 96 % 02/01/2025 Weight-kg 83.1 kg 02/01/2025 Height 64.00 in 02/01/2025 Blood pressure systolic 130 mm Hg 02/01/2025 Weight 183.2 lbs 02/01/2025 BMI 31.44 kg/m2 02/01/2025 Encounters Encounter Location Date Provider Diagnosis [address] [address] 04/05/2024 Evelyn Genesis Sciatica, right side M54.31 [facility] [address] [place] [address] 04/12/2024 Provider Migration Spinal stenosis, lumbar region without neurogenic claudication M48.061 ; Sciatica, right side M54.31 and Dorsalgia, unspecified M54.[address] [address] 04/14/2024 Provider Migration Spinal stenosis, lumbar region without neurogenic claudication M48.061 and Sciatica, right side M54.[address] [address] 04/18/2024 Provider Migration Dorsalgia, unspecified M54.9 ; Spinal stenosis, lumbar region without neurogenic claudication M48.061 and Paresthesia of skin R20.[address] [address] 04/22/2024 Dr. Safia Epstein Sciatica, right side M54.31 ; Low back pain, unspecified M54.50 ; Spinal stenosis, lumbar region without neurogenic claudication M48.061 ; Personal history of malignant neoplasm of breast Z85.3 ; Encounter for immunization Z23 and Scoliosis, unspecified M41.[address] [address] 04/28/2024 Dr. Safia Epstein Spinal stenosis, lumbar region without neurogenic claudication M48.061 and Essential (primary) hypertension I10 [address] [address] 05/02/2024 Provider Migration Personal history of malignant neoplasm, unspecified Z85.9 ; Spinal stenosis, site unspecified M48.00 and Spinal stenosis, lumbar region without neurogenic claudication M48.[address] [address] 05/11/2024 Dr. Safia Epstein Encounter for immunization Z23 ; Vitamin D deficiency, unspecified E55.9 ; Essential (primary) hypertension I10 ; Hypothyroidism, unspecified E03.9 ; Hyperlipidemia, unspecified E78.5 and Prediabetes R73.[address] [address] 05/19/2024 vEelyn Hurtado Hyperlipidemia, unspecified E78.5 ; Encounter for [...] quadrant pain R10.11 and Headache, unspecified R51.[address] [address] 05/24/2024 Provider Migration Spinal stenosis, lumbar region without neurogenic claudication M48.061 and Headache, unspecified R51.9 [place] [id number] 06/06/2024 Dr. Safia Epstein [address] [address] 07/01/2024 Dr. Safia Epstein Anxiety disorder, unspecified F41.9 ; Essential (primary) hypertension I10 ; Primary insomnia F51.01 ; Other specified disorders of bone density and structure, unspecified site M85.80 and Asymptomatic menopausal state Z78.0 [place] [phone] 08/31/2024 Reynold Ochoa Hammer toe of second toe of left foot M20.[address] [address] 09/07/2024 Dr. Safia Epstein Cellulitis of left toe L03.032 ; Ingrown nail L60.0 ; Other hammer toe(s) (acquired), right foot M20.41 ; Other hammer toe(s) (acquired), left foot M20.42 and Actinic keratosis L57.[address] [address] 09/16/2024 Dr. Safia Epstein Paresthesia R20.2 ; Ingrown nail L60.0 and Essential (primary) hypertension I10 [address] [address] 10/28/2024 Dr. Safia Epstein Essential (primary) hypertension I10 [address] [place] [address] 11/22/2024 Evelyn Hurtado Essential (primary) hypertension I10 ; Anxiety disorder, unspecified F41.9 ; Hypothyroidism, unspecified E03.9 and Gastro-esophageal reflux disease without esophagitis K21.9 [facility] [address] [place] [address] 02/01/2025 Dr. Anurag Suero Acute UTI N39.0 and Dysuria R30.0 [facility] [address] [place] [address] 06/04/2024 Provider Migration [address] [address] 06/05/2024 Provider Migration [address] [address] 06/21/2024 Dr. Safia Epstein [address] [address] 07/19/2024 Evelyn Hurtado [address] [address] 08/12/2024 Dr. Safia Epstein [address] [address] 08/16/2024 Dr. Safia Epstein [address] [address] 08/22/2024 Dr. Safia Epstein [address] [address] 09/07/2024 Dr. Safia Epstein [address] [address] 09/29/2024 Dr. Safia Epstein [address] [address] 12/19/2024 Dr. Safia Epstein [facility] [address] [place] [address] 01/13/2025 Dr. Safia Epstein Essential (primary) hypertension I10 [address] [address] 01/17/2025 Dr. Safia Epstein [address] [address] 02/04/2025 Dr. Anurag Suero Assessments Encounter Date Diagnosis (ICD Code) Assessment Notes Treatment Notes Treatment Clinical Notes Section Notes 04/05/2024 Sciatica, right side (ICD-10 - M54.31) [...] 07/01/2024 Essential (primary) hypertension (ICD-10 - I10) 08/31/2024 Hammer toe of second toe of [...] office if continuing to worsen with treatment. 09/07/2024 Cellulitis of left toe (ICD-10 - L03.032) stop cephalexin start augmentin keep epsom salt soaks 09/07/2024 Ingrown nail (ICD-10 - L60.0) plan cotton packing to allow nail to grow out in the next few weeks. f/u in 2 weeks. 09/16/2024 Paresthesia (ICD-10 - R20.2) 09/16/2024 Ingrown [...] RPM. No changes with losartan and metoprolol 01/13/2025 Essential (primary) hypertension (ICD-10 - I10) 02/01/2025 Dysuria (ICD-10 - R30.0) 02/01/2025 Acute UTI (ICD-10 - N39.0) Pain or burning with urination, urinary frequency and urgency, and sometimes can see blood in the urine. Will need antibiotic to treat infection and take as prescribed. Push fluids as much as possible, wear cotton underwear, wipe from front to back, get out of wet clothes as soon as possible . Avoid bladder irritants in diet. Constipation especially in children can affect bladder emtying and put at greater risk of UTI. If needed could take over the counter AZO for some symptom relief. In some cases and recurrence of urinary tract infections, we may send urine for culture to look at what bacteria is responsible and then that will guide specific treatment. Symptoms will usually start to improve in 48 hours. If symptoms persist and start running fever, nausea and vomiting and fever that may mean the infection could be in kidneys and will need to get back into clinic or go to ER, If taking control pills, remember antibiotics can interfere with their efficacy and use alternate methods for contraception for the next month. 09/16/2024 Essential (primary) hypertension (ICD-10 - I10) 09/07/2024 Other hammer toe(s) (acquired), right foot (ICD-10 - M20.41) 11/22/2024 Anxiety disorder, unspecified (ICD-10 - F41.9) - Stress levels are high with ill and having to manage all things by herself, but anxiety is being managed with current medication regimen.- Continue current medication of buspar BID with PRN alprazolam 07/01/2024 Primary insomnia (ICD-10 - F51.01) 09/07/2024 Other hammer toe(s) (acquired), left foot (ICD-10 - M20.42) use toe spacer to protect toes from touching. 07/01/2024 Other specified disorders of bone density and structure, unspecified site (ICD-10 - M85.80) 11/22/2024 Hypothyroidism, unspecified (ICD-10 - E03.9) 11/22/2024 Gastro-esophageal reflux disease without esophagitis (ICD-10 - K21.9) 07/01/2024 Asymptomatic menopausal state (ICD-10 - Z78.0) 09/07/2024 Actinic keratosis (ICD-10 - L57.0) Cryotherapy [...] Of Treatment Next Appt Details Provider Name:Evelyn Rayan balbuena, 02/28/2025 09:30:00 AM, [address], [place], [address], [phone] Provider Name:Evelyn Way sree, 05/09/2025 10:30:00 AM, [address] [place], [address], [phone] Insurance Providers Payer Name Payer Address Payer Phone Subscriber Number Group Number Insured Name Patient Relationship to Insured Coverage Start Date Coverage End Date [employer] Medicare Advantage Ppo [address] [place] [address] [id number] Mary Lou Patel Self - patient [...] brayan t M20.42 Surgical History Surgery Date(Month/Year) (88727) BIOPSY/REMOVAL LYMPH NODES ,note s : left - malignant (02105) COMP SCREEN MAMMOGRAM ADD-ON ,no rahul : Nl. repeat in 1 yr. (25858) BONE IMAGING WHOLE BODY 04/16/20 20 Tubal ligation 1975 () REMOVAL OF BREAST LESION ,notes : right - Benign tumor 1989 (04413) CARPAL TUNNEL SURGERY ,notes : B ilateral 2003 (17741) COLOGUARD SCREENING ,notes : neg ative 09/2020 (00829) DOPPLER ECHO EXAM HE ART ,notes : Mild Tricups. regurg. EF 67% 10/2017 colonoscopy ,notes : Nl 01/2010 (72486) DXA BONE DENSITY STUDY ,notes : Severe osteopenia 02/2021 (19322) REMOVAL OF GALLBLADDER 03/2012 (3130F) UPPER GI ENDOSCOPY P ERFORMED ,notes : distal esophageal stenosis, Sm Hiatal hernia- Repeat in 2 years 04/02/2018
--- OUTSIDE RECORDS SUMMARY | 2025-02-08 12:13 | XMS_ITS | Encounter Summary ---
Author Organization [facility] Address [address] [place] [address] Care Team Providers Care Supervisor Burling And Joining Name Role Phone Safia Epstein MD Primary Care Provider Encounter Details Date Type Department Care Team (Late Contact Info) Description 11/02/2019 Chart Note [facility] Radiation Therapy [address] [place] [address] [place] [address] [place] [address] Social History Tobacco Use Types [...] Description 02/22/2025 1:15 PM CDT Office Visit [facility] Oncology and Hematology - [place] 4 [facility] [address] [address] Jama Oliva MD [address] [facility] [address] [place] [address] documented as of this encounter Visit Diagnoses Not on filedocumented in this encounter Care Teams Supervisor Burling And Joining Relationship Specialty Start Date End Date Safia Epstein MD [address] [facility] [place] [address] PCP - General Family Practice 10/28/19 documented as of this encounter
--- OUTSIDE RECORDS SUMMARY | 2025-02-08 12:13 | XMS_ITS | Encounter Summary ---
Author Organization [facility] Address [address] [place] [address] Care Team Providers Care Cyber Security Administrator Name Role Phone Safia Epstein MD Primary Care Provider Encounter Details Date Type Department Care Team (Late st Contact Info) Description 02/07/2025 External Device Data STL ABSTRACTION Provider, Abstract [...] Description 02/22/2025 1:15 PM CDT Office Visit [facility] Oncology and Hematology - [place] [address] [facility] [address] [place] [address] Jama Oliva MD [address] [facility] [address] [place] [address] documented as of this encounter Visit Diagnoses Not on filedocumented in this encounter Care Teams Cyber Security Administrator Relationship Specialty Start Date End Date Safia Epstein MD [address] [place] [address] PCP - General Family Practice 10/28/19 documented as of this encounter
--- OUTSIDE RECORDS SUMMARY | 2025-02-08 12:13 | XMS_ITS | Clinical Summary ---
Author Organization [facility] Address [address] [place] [address] Care Team Providers Care Welt Rander Name Role Phone Safia Epstein MD Primary Care Provider Allergies Active Allergy Reactions Criticality Noted Date Comments Atorvastatin Muscle Pain Low 12/14/2015 Ezetimibe Muscle Pain Low 12/14/2015 Lovastatin Muscle Pain Low 12/14/2015 Pravastatin Muscle Pain Low 12/14/2015 Rosuvastatin Muscle Pain Low 12/14/2015 Simvastatin Muscle Pain Low 12/14/2015 Jxsojtl-[id number]-Vpf Reductase Inhibitors Muscle Pain Low 12/28/2020 Statin [...] Encounters Date Type Department Care Team Description 02/07/2025 External Device Data STL ABSTRACTION Provider, Abstract 01/23/2025 Orders Only [facility] Oncology and Hematology - [place] [address] Faina Abdullahi [address] [address] Jama Oliva MD 01/18/2025 External Device Data STL ABSTRACTION Provider, Abstract 01/18/2025 External Device Data STL ABSTRACTION Provider, [...] Comments Blood Pressure 134/75 08/25/2024 12:56 PM ETHYLENE OXIDE PANELBOARD OPERATOR Pulse 77 08/25/2024 12:56 PM ETHYLENE OXIDE PANELBOARD OPERATOR Temperature 36.1 C (96.9 F) 08/25/2024 12:56 PM ETHYLENE OXIDE PANELBOARD OPERATOR Respiratory Rate 15 08/25/2024 12:56 PM ETHYLENE OXIDE PANELBOARD OPERATOR Oxygen Saturation 94% 08/25/2024 12:56 PM ETHYLENE OXIDE PANELBOARD OPERATOR Inhaled Oxygen Concentration - - Weight 83.1 kg (183 lb 3.2 oz) 08/25/2024 12:56 PM ETHYLENE OXIDE PANELBOARD OPERATOR Height 165.1 cm (5' 5) 10/22/2021 9:54 AM CDT Body Mass Index 30.49 10/22/2021 9:54 AM CDT Plan of Treatment Upcoming Encounters Date Type Department Care Team (Late st Contact Info) Description 02/22/2025 1:15 PM CDT Office Visit [facility] Oncology and Hematology - [place] [address] [facility] [address] [place] [address] Jama Oliva MD [address] [facility] [address] [place] [address] Health Maintenance Due Date Last Done Comments DTAP/TDAP/TD VACCINES (1 - Tdap) 1964 PNEUMOCOCCAL VACCINE 50+ YEA RS (1 of 1 - PCV) 1995 ZOSTER VACCINE (1 of 2) 1995 RSV VACCINE (60+ or ) (1 - 1-dose 75+ series) 2020 COVID-19 Vaccine (3 - 2023-2 5 season) 2024 09/08/2020, 08/11/2020 [place] Preventative Visit/Annual Wellness Visit 07/06/2024 INFLUENZA VACCINE (#1) 2025 04/28/2024 OSTEOPOROSIS SCREENING 06/20/2029 , 06/20/2024, 09/17/2021, Additional history exists Procedures Procedure Name Priority Date/Time Associated Diagnosis Comments MAMMO SCREENING BILAT Routine 01/20/2025 11:40 AM CDT from Last 3 Months Results * MAMMO SCREENING BILAT (01/20/2025 11:40 AM CDT) Anatomical Region Laterality Modality Breast Bilateral Mammography us Jama Oliva MD MAMMO ORDERABLES Final Result from Last 3 Months Insurance [employer] PPO MCR Care Teams Welt Rander Relationship Specialty Start Date End Date Safia Epstein MD [address] [place] [address] PCP - General Family Practice 10/28/19
--- OUTSIDE RECORDS SUMMARY | 2025-02-08 12:13 | XMS_ITS | Clinical Summary ---
Author Organization [facility] Address [address] [place] [address] Care Team Providers Care Coal Mine Inspector Name Role Phone Safia Epstein MD Primary Care Provider Nancy Monson APNP Unavailable Unavailab gunjan Musa MD, Sylvester Unavailable [phone] Evelyn Hurtado [facility]- Unavailable [phone] Allergies Active Allergy Reactions Criticality Noted Date [...] this topic Meningococcal Vaccine Aged Out No branden abel eligible based on patient's age to complete this topic RSV Immunizations Under 20 Months Aged Out No longer eligible based on patient's age to complete this topic Procedures Procedure Name Priority Date/Time Associated Diagnosis Comments BONE DENSITY/DEXA Routine 06/20/2024 1:[address] BUILDING DECORATOR Osteopenia of multiple sites from Last 3 Months or Most Recently Relevant to Health Maintenance Results * BONE DENSITY/DEXA (06/20/2024 1:[address] AND BUILDING DECORATOR) Anatomical Region Laterality Modality Bone Bone Density 06/20/2024 10:[address] AND BUILDING DECORATOR Impressions 06/20/2024 11:[address] AND BUILDING DECORATOR Impression: Low bone mass (osteopenia). Referred By: JAMA OLIVA Interpreted By: Naga Wheat DO, 06/20/2024 10:59 PM Narrative 06/20/2024 11:[address] AND BUILDING DECORATOR [place] [id number] [place] [address] Examination: DEXA Bone densitometry Clinical history: Postmenopausal. [...] Procedure Note Naga Wheat DO - 06/20/2024 [facility] [address] [place] [address] Examination: DEXA Bone densitometry Clinical history: Postmenopausal. [...] to Health Maintenance Insurance AET[employer] Care Teams Coal Mine Inspector Relationship Specialty Start Date End Date Safia Epstein MD [address] [place] [address] PCP - General FAMILY PRACTICE 10/22/18 Nancy Monson APNP [address] [place] [address] Game Master NURSE PRACTITIONER 01/08/21 Sylvester Callejas MD [address] [place] [address] [place] Game Master INTERVENTIONAL CARDIOLOGY 01/08/21 Evelyn Hurtado, ANP- [address] [place] [address] [facility] 11/18/23
[2025-02-08 14:05] LABS: Alanine Aminotransferase 16 U/L (6-35); Albumin Level 4.2 g/dL (3.5-5.1); Alkaline Phosphatase 66 U/L (38-126); Anion Gap 7 mmol/L (4-12); Aspartate Amino Transferase 26 U/L (14-36); Bilirubin,Total 0.4 mg/dL (0.2-1.3); Blood Urea Nitrogen 18 mg/dL (7-17); Calcium 9.5 mg/dL (8.4-10.2); Carbon Dioxide 28 mmol/L (22-30); Chloride 103 mmol/L (98-107); Estimated Glomerular Filt Rate > 60; Glucose 90 mg/dL (65-110); Potassium 4.4 mmol/L (3.4-5.0); Sodium 138 mmol/L (137-145); Total Protein 7.6 g/dL (6.3-8.2)
== END 2025-02-08 11:32 | disposition home or self-care (01) ==
LOC: ANHLAB 11:32
PROVIDERS: PCP Family Medicine; Visit Provider Internal Medicine Hematology & Oncology
DX: C50.412 Malignant neoplasm of upper-outer quadrant of left female breast (principal); Z17.0 Estrogen receptor positive status [ER+]
CPT/HCPCS: 36415; 80053; 85025; 86300

== ENCOUNTER 2025-05-17 09:27 | Outpatient (CLI) | payer MEDICARE, SELFPAY ==
--- OUTSIDE RECORDS SUMMARY | 2025-04-19 10:00 | XMS_ITS ---
Author Organization [facility] Address [address] [place] [address] Care Team Providers Care Senior Solutions Architect Name Role Phone Dr. Safia Epstein Primary Care Provider [phone] REASON FOR VISIT Flu Shot Medications Medication SIG (Take, Route, Frequency, Duration) Notes Start Date End Date Status Vitamin D3 Ultra Strength 125 MCG (5000 UT) Capsule 1 Oral every day; Duration: 0 10/24/2021 Active Losartan Potassium 25 MG Tablet 1 tablet Oral Once a day; Duration: 90 days Active Tamoxifen Citrate 20 MG Tablet 1 tablet Orally Once a day Active PreserVision AREDS - Tablet as directed Orally Active Claritin 10 MG Tablet 1 tablet Orally Once a day Active Fluorouracil 5 % Cream 1 application Externally Twice a day; Duration: 21 days 02/28/2025 Active busPIRone HCl 15 MG Tablet 1 tablet Orally Twice a day; Duration: 90 days Active ALPRAZolam 0.5 MG Tablet 1/2 Oral two times a day; Duration: 30 days ,PRN Reason:for anxiety 12/19/2024 Active Pantoprazole Sodium 40 MG Tablet Delayed Release 1 tablet 1/2 to 1 hour before morning meal Orally Once a day; Duration: 90 days Active Metoprolol Succinate ER 50 MG Tablet Extended Release 24 Hour 1/2 tab in am and 1 tab in pm Orally; Duration: 90 days Active Aspirin Adult Low Strength 81 MG Tablet Delayed Release 1 Oral every day; Duration: 0 12/07/2020 Active Metamucil oral; Duration: 0 *Pick strength-form from [facility] for eRX* 12/07/2020 Active Ocuvite Adult 50 Plus oral; Duration: 0 *Reorder from [facility] for eRx and Interaction Alerts* 12/07/2020 Active cloNIDine HCl 0.1 MG Tablet 1/2 to 1 Oral three times a day; Duration: 0 04/28/2024 Active Levothyroxine Sodium 100 MCG Tablet 1 tablet in the morning on an empty stomach Orally Once a day Active Immunizations Vaccine Route Administration Date Status Comme nts Influenza, high dose seasonal IM Intramuscular 04/19/2025 Administered Encounters Encounter Location Date Provider Diagnosis [address] [phone] 04/19/2025 Dr. Safia Epstein Encounter for immunization Z23 Assessments Encounter Date Diagnosis (ICD Code) Assessment Notes Treatment Notes Treatment Clinical Notes Section Notes 04/19/2025 Encounter for immunization (ICD-10 - Z23) Plan Of Treatment Next Appt Details Provider Name:Evelyn balbuena, 08/29/2025 10:15:00 AM, [address] [place] [address], [place], [address], [phone] Progress Notes * Mary Lou ROLLE ADOB: [birth year] (79 yo F)Acc No.[id number]:04/19/2025 Progress Note Patient: Mary Lou Salazar Provider: Dai Epstein MD :1945 A ge:79 Y S ex:Female Date:04/19/2025 Phone: Address:[address] [place], [place] [id number] Subjective: * Chief Complaints: * F rosita Shot * Medications: T akingTamoxifen Citrate 20 MG Tablet 1 tablet Orally Once a day PreserVision AREDS - Tablet as directed Orally Claritin 10 MG Tablet 1 tablet Orally Once a day Vitamin D3 Ultra Strength 125 MCG (5000 UT) Capsule 1 Oral every day Aspirin Adult Low Strength 81 MG Tablet Delayed Release 1 Oral every day Metamucil oral , Notes to Pharmacist: *Pick strength-form from [facility] for eRX*Ocuvite Adult 50 Plus oral , Notes to Pharmacist: *Reorder from [facility] for eRx and Interaction Alerts*cloNIDine HCl 0.1 MG Tablet 1/2 to 1 Oral three times a day Levothyroxine Sodium 100 MCG Tablet 1 tablet in the morning on an empty stomach Orally Once a day busPIRone HCl 15 MG Tablet 1 tablet Orally Twice a day ALPRAZolam 0.5 MG Tablet 1/2 Oral two times a day , Notes to Pharmacist: ,PRN Reason:for anxietyPantoprazole Sodium 40 MG Tablet Delayed Release 1 tablet 1/2 to 1 hour before morning meal Orally Once a day Metoprolol Succinate ER 50 MG Tablet Extended Release 24 Hour 1/2 tab in am and 1 tab in pm Orally Fluorouracil 5 % Cream 1 application Externally Twice a day Losartan Potassium 25 MG Tablet 1 tablet Oral Once a day Taking Tamoxifen Citrate 20 MG Tablet 1 tablet Orally Once a day Taking PreserVision AREDS - Tablet as directed Orally Taking Claritin 10 MG Tablet 1 tablet Orally Once a day Taking Vitamin D3 Ultra Strength 125 MCG (5000 UT) Capsule 1 Oral every day Taking Aspirin Adult Low Strength 81 MG Tablet Delayed Release 1 Oral every day Taking Metamucil oral , Notes to Pharmacist: *Pick strength-form from [facility] for eRX*Taking Ocuvite Adult 50 Plus oral , Notes to Pharmacist: *Reorder from [facility] for eRx and Interaction Alerts*Taking cloNIDine HCl 0.1 MG Tablet 1/2 to 1 Oral three times a day Taking Levothyroxine Sodium 100 MCG Tablet 1 tablet in the morning on an empty stomach Orally Once a day Taking busPIRone HCl 15 MG Tablet 1 tablet Orally Twice a day Taking ALPRAZolam 0.5 MG Tablet 1/2 Oral two times a day , Notes to Pharmacist: ,PRN Reason:for anxietyTaking Pantoprazole Sodium 40 MG Tablet Delayed Release 1 tablet 1/2 to 1 hour before morning meal Orally Once a day Taking Metoprolol Succinate ER 50 MG Tablet Extended Release 24 Hour 1/2 tab in am and 1 tab in pm Orally Taking Fluorouracil 5 % Cream 1 application Externally Twice a day Taking Losartan Potassium 25 MG Tablet 1 tablet Oral Once a day Objective: Past Vitals:* 02/28/2025 BP: 122/62 mm Hg, HR: 67 /mi n, Oxygen sat %: 96 %, Wt: 185.4 lbs, Wt-k.1 kg * 02/01/2025 BP: 130/68 mm Hg, HR: 78 /mi n, Oxygen sat %: 96 %, Wt: 183.2 lbs, Wt-k.1 kg Assessment: * Assessment: 1. E ncounter for immunization - Z23 (Primary) Plan: * Immunizations: Influenza, high dose seasonal : 0.5 mL (Dose No:1) (Route: Intramuscular) given by Reshma Bolivar on Right Gluteus Medius (Encounter for immunization) * Electronic signature of Dr. Safia Epstein on 05/17/2025 at 10:16 AM TUFTER HAND Sign off status: Pending * Provider: Dai Epstein MD Date: 1 Generated for Paty scherer/Mariusz/Spenceritting on: 07/17/2024 10:16 AM TU[employer]TER HAND
[2025-05-17 09:44] LABS: Hematocrit 40.4 % (37.0-47.0); Hemoglobin 12.7 g/dL (12.0-15.0); Immature Granulocyte Percent A 0.5 % (0-0.5); Lymphocytes Absolute Auto 1.22 K/mm3 (0.9-3.2); Mean Corpuscular HGB Conc 31.4 g/dl (32-36); Mean Corpuscular Hemoglobin 29.0 pg (26-34); Mean Corpuscular Volume 92.2 fl (80-100); Nucleated Red Blood Cells Absolute Auto 0.000 K/mm3 (0.0-0.012); Nucleated Red Blood Cells Perc 0.0 % (0.0-0.2); Platelet Count Result 172 k/mm3 (150-375); Red Blood Count 4.38 M/mm3 (4.2-5.4); White Blood Count 4.1 K/mm3 (4.5-10.0)
--- OUTSIDE RECORDS SUMMARY | 2025-05-17 10:17 | XMS_ITS | Clinical Summary ---
Author Organization [facility] (Former[facility])[3] [facility] Address [address] [address] Care Team Providers Care Client Resolution Specialist Name Role Phone Safia Epstein MD Primary Care Provider Allergies Active Allergy Reactions Criticality Noted Date Comments Atorvastatin Muscle Pain Low 12/14/2015 Ezetimibe Muscle Pain Low 12/14/2015 Lovastatin Muscle Pain Low 12/14/2015 Pravastatin Muscle Pain Low 12/14/2015 Rosuvastatin Muscle Pain Low 12/14/2015 Simvastatin Muscle Pain Low 12/14/2015 Iflbglx-Fqb-Dwz Reductase Inhibitors Muscle Pain Low 12/28/2020 Statin [...] Capsule Take 25 mg by mouth. Active tamoxifen (NOLVADEX) 20 mg tablet Take 1 Tablet (20 mg) by mouth daily. 90 Tablet 3 5 Active Active Problems Problem Noted Date Diagnosed Date Malignant neoplasm of upper- outer quadrant of left breast in female, estrogen receptor positive 11/02/2019 Encounters Date Type Department Care Team Description 04/11/2025 External Device Data STL ABSTRACTION Provider, Abstract 02/22/2025 1:15 PM CDT Office Visit [facility] ([facility]3] Oncology and Hematology [facility] [address] [place] [phone] Jama Oliva MD Malignant neoplasm of upper-outer quadrant of left breast in female, estrogen receptor positive (CMS/HCC) (Primary Dx) from Last 3 Months Family History Medical [...] Sign Reading Time Taken Comments Blood Pressure 127/70 02/22/2025 1:01 PM CDT Pulse 70 02/22/2025 1:01 PM CDT Temperature 36.6 C (97.8 F) 02/22/2025 1:01 PM CDT Respiratory Rate 15 08/25/2024 12:56 PM HAND PROFILER Oxygen Saturation 96% 02/22/2025 1:01 PM CDT Inhaled Oxygen Concentration - - Weight 84.4 kg (186 lb) 02/22/2025 1:01 PM CDT Height 165.1 cm (5' 5) 02/22/2025 1:01 PM CDT Body Mass Index 30.95 02/22/2025 1:01 PM CDT Plan of Treatment Upcoming Encounters Date Type Department Care Team (Late st Contact Info) Description 05/29/2025 2:00 PM HAND PROFILER Office Visit [facility] ([facility]3] Oncology and Hematology - [place] [address] [facility] [address] [place] [address] Jama Oliva MD [address] [facility] [address] [place] [address] Health Maintenance Due Date Last Done Comments DTAP/TDAP/TD VACCINES (1 - Tdap) 11/04/2010 11/04/19 11 ZOSTER VACCINE (2 of 3) 07/26/2015 05/31/2015, 05/06 RSV VACCINE (60+ or ) (1 - 1-dose 75+ series) 2020 INFLUENZA VACCINE (#1) 2025 04/28/2024, 2017 COVID-19 Vaccine (3 - 2024-2 6 season) 2025 09/08/2020, 08/11/2020 OSTEOPOROSIS SCREENING 06/20/2029 , 06/20/2024, 09/17/2021, Additional history exists PNEUMOCOCCAL VACCINE 50+ YEARS Completed 06/05/2015 , 03/06/2013 Insurance [employer] PPO MCR Care Teams Client Resolution Specialist Relationship Specialty Start Date End Date Safia Epstein MD [address] [place] [address] PCP - General Family Practice 10/28/19
--- OUTSIDE RECORDS SUMMARY | 2025-05-17 10:17 | XMS_ITS | Patient Health Record ---
Author Organization [facility] Address [address] [place] [address] Care Team Providers Care Airframe Design Engineer Name Role Phone Dr. Safia Epstein Primary Care Provider [phone] Reynold Ochoa Unavailable [phone] Evelyn Hurtado Unavailable [phone] Dr. Anurag Suero Unavailable [phone] Migration, Provider Unavailable Unavailable Allergies Allergen (clinical drug ingredient) Drug/Non Drug Allergy documented on EMR Reaction Allergy Type Onset Date Status alendronate Fosamax Unknown Drug Allergy 03/01/2024 Acti ve ezetimibe Zetia Unknown Drug Allergy 12/12/2020 Active Substance with 2-skrrfiz-5-methylg lutaryl-coenzyme A reductase inhibitor mechanism of action (substance) Statins muscle cramps including crestor Drug Allergy 03/24/2024 Active Results Component Value Reference Range Flag Notes Patient Health Questionnaire (PHQ9) Reviewed date:05/19/2024 12:00:00 AM Interpretation: Performing Lab: Notes/Report: Feeling bad about yourself or that you are a failure or have [...] 11:35:35 AM Interpretation: Performing Lab: Notes/Report: Specific [place] 1.020 pH 5.0 Glucose neg Urine Protein trace Occult Blood neg Bilirubin neg Urobilinogen,Semi-Qn normal Nitrite, Urine neg Ketones neg Leucocyte Esterase trace Urine Culture Reviewed date:02/04/2025 09:33:13 AM Interpretation: Performing Lab: Notes/Report: Test Performed by: [place] [id number] [employer]: Sylvester Sebastian DO C Urine See Below Final No growth at 2 days. Hemoglobin A1c {Glycosylated } Reviewed date:02/26/2025 08:31:36 PM Interpretation: Performing Lab: Notes/Report: Test Performed by: [place] [id number] [employer]: Sylvester Sebastian DO Hemoglobin A1c 6.1 <=6.4 % Hemoglobin A1C < 5.7% = Normal 5.7-6.4% = Increased risk for future diabetes >=6.5% = Diabetes eAvg Glucose 128 <=117 mg/dL H eAG Reference Range <117 mg/dL = Normal 117-137 mg/dL = Increased Risk For Future Diabetes >137 mg/dL = Diabetes Vitamin D 25 Hydroxy Reviewed date:02/26/2025 08:31:36 PM Interpretation: Performing Lab: Notes/Report: Test Performed by: [place] [id number] [employer]: Sylvester Sebastian DO Vitamin D 25 OH 31 30-100 ng/mL Vitamin D25 Interpretation: Deficient: <= 20 ng/mL Insufficient: 21-29 ng/mL Sufficient: 30-100 ng/mL Upper Safety Limit: >100 ng/mL T4 Free Reviewed date:02/26/2025 08:31:36 PM Interpretation: Performing Lab: Notes/Report: Test Performed by: [place] [id number] [employer]: Sylvester Sebastian DO T4 Free 0.82 0.60-1.70 ng/dL CBC w Auto Diff Reviewed date:02/26/2025 08:31:36 PM Interpretation: Performing Lab: Notes/Report: I# : [id number] Test Performed by: [place] [id number] [employer]: Sylvester Sebastian, DO WBC 4.2 4.0-11.7 K/mcL RBC 4.79 3.80-5.41 x10*6/mcL Hgb 13.9 11.3-15.2 g/dL Hct 42.2 33.2-45.3 % MCV 88.0 79.5-98.1 fL MCH 29.0 27.0-34.2 pg MCHC 32.9 31.8-35.3 g/dL RDW 13.6 12.0-16.4 % Platelets 206 149-393 K/mcL MPV 8.9 7.0-11.0 fL Neutro Auto 44.8 45.3-79.0 % L Lymph Auto 38.0 11.8-45.9 % [place] Auto 10.9 4.4-12.0 % Eosinophil Auto 5.0 0.0-6.3 % Basophil Auto 1.3 0.2-1.6 % Neutro Absolute 1.9 2.4-8.4 x10*3/mcL L Lymph Absolute 1.6 0.8-3.7 x10*3/mcL [place] Absolute 0.5 0.3-1.1 x10*3/mcL Eos Absolute 0.2 0.0-0.5 x10*3/mcL Baso Absolute 0.1 0.0-0.1 x10*3/mcL Comprehensive Metabolic Pane l Reviewed date:02/26/2025 08:31:36 PM Interpretation: Performing Lab: Notes/Report: Test Performed by: [address] [id number] [employer]: Sylvester Sebastian, DO Glucose Lvl 107 74-109 mg/dL ADA risk stratification for diabetes <100 mg/dL = Normal 100-125 mg/dL = Increased risk for future diabetes >=126 mg/dL = Diabetes, if on more than one testing occasion BUN 18 7-25 mg/dL Creatinine Lvl 0.82 0.60-1.20 mg/dL eGFR CKD-EPI 72 >=90 mL/min/1.73 m2 L The CKD-EPI equation is validated in individuals 18 years of age and older. It is less accurate in patients with extremes of muscle mass, restriction of dietary protein, ingestion of creatine, extra-renal metabolism of creatinine, or treatment with medications that affect renal tubular creatinine secretion. GFR Categories in Chronic Kidney Disease (CKD) GFR GFR (mL/min/1.73 Category: square meters): Interpretation: G1 90 or greater Normal or high* G2 60-89 Mild decrease* G3a 45-59 Mild to moderate decrease G3b 30-44 Moderate to severe decrease G4 15-29 Severe decrease G5 14 or less Kidney failure *In the absence of evidence of kidney damage, neither GFR category G1 nor G2 fulfill the criteria for CKD (Kidney Int Suppl 2013;3:1-150) Calcium Lvl 9.5 8.6-10.3 mg/dL Sodium Lvl 141 136-145 mmol/L Potassium Lvl 4.3 3.5-5.1 mmol/L Chloride Lvl 105 98-107 mmol/L CO2 31 21-31 mmol/L Anion Gap 4.9 <=16.0 mmol/L Alk Phos 57 34-104 unit/L Bilirubin Total 0.6 0.3-1.0 mg/dL Albumin Lvl 4.1 3.5-5.2 g/dL Protein Total 6.7 6.4-8.9 g/dL Albumin/Globulin Ratio 1.5 1.1-2.5 ALT 9 7-52 unit/L AST 13 13-39 unit/L Lipid Panel {Chol, Trig, HDL , LDL} Reviewed date:02/26/2025 08:31:36 PM Interpretation: Performing Lab: Notes/Report: Test Performed by: [place] [address] [employer]: Sylvester Sebastian DO Cholesterol Total 269 <=199 mg/dL H Triglycerides 456 0-149 mg/dL H Triglyceride Reference Ranges: <150 mg/dL Normal 150 - 199 mg/dL Borderline High 200 - 499 mg/dL High >=500 mg/dL Very High LDL N/A TRIG>400 <=100 mg/dL LDL Optimal: <100 Near or above optimal: 100-129 Borderline high: 130-159 High: 160-189 Very high: >=190 Coronary heart disease risk factors should be considered when determining LDL goals. Please refer to ATPIII guidelines for further information. If LDL is not calculated, please call the lab to add on the direct LDL methodology, if desired. HDL 43 23-92 mg/dL Non HDL Cholesterol 226 <=130 mg/dL H Chol/HDL 6 0-5 H Thyroid Stimulating Hormone Reviewed date:02/26/2025 08:31:36 PM Interpretation: Performing Lab: Notes/Report: Test Performed by: [place] [address] [employer]: Sylvester Sebastian DO TSH 1.07 0.45-5.33 mcIU/mL MAMMOGRAM, SCREENING Reviewed date:01/23/2025 10:10:07 AM Interpretation: Performing Lab: Notes/Report: Mammogram Birads Cat 2 Reason For Referral Reason O2 desat at night. U nsure if she has sleep apnea. Diagnosis 1 Low oxygen saturatio n (R79.81) Referral Organization [facility] Referring Provider First Name Dr. Baig Referring Provider Last Name [place] Referring Provider Speciality Family [facility] jovani Referred Provider [facility] [place] Referred Provider Specialty Ear, nose an d throat surgeon General Notes Danuta Hou 0 07/26/2024 08:30:18 AM CRITICAL CARE TECHNICIAN >Faxed referral to [place] [facility], Caron Rogers 07/27/2024 09:06:33 AM CRITICAL CARE TECHNICIAN >Patient is scheduled for an appointment on 08-10-2024 at 10:45 am with Adrianna Lauren. Referral Priority Routine Referral Appointment Date 08/10/2024 Medications Medication SIG (Take, Route, Frequency, Duration) Notes Start Date End Date Status Fluorouracil 5 % Cream 1 application Externally Twice a day; Duration: 21 days 02/28/2025 Active Vitamin D3 Ultra Strength 125 MCG (5000 UT) Capsule 1 Oral every day; Duration: 0 10/24/2021 Active Losartan Potassium 25 MG Tablet 1 tablet Oral Once a day; Duration: 90 days Active Aspirin Adult Low Strength 81 MG Tablet Delayed Release 1 Oral every day; Duration: 0 12/07/2020 Active Metamucil oral; Duration: 0 *Pick strength-form from [employer] for eRX* 12/07/2020 Active Ocuvite Adult 50 Plus oral; Duration: 0 *Reorder from [facility] for eRx and Interaction Alerts* 12/07/2020 Active cloNIDine HCl 0.1 MG Tablet 1/2 to 1 Oral three times a day; Duration: 0 04/28/2024 Active Levothyroxine Sodium 100 MCG Tablet 1 tablet in the morning on an empty stomach Orally Once a day Active busPIRone HCl 15 MG Tablet 1 tablet Orally Twice a day; Duration: 90 days Active ALPRAZolam 0.5 MG Tablet 1/2 Oral two times a day; Duration: 30 days ,PRN Reason:for anxiety 12/19/2024 Active Tamoxifen Citrate 20 MG Tablet 1 tablet Orally Once a day Active Pantoprazole Sodium 40 MG Tablet Delayed Release 1 tablet 1/2 to 1 hour before morning meal Orally Once a day; Duration: 90 days Active PreserVision AREDS - Tablet as directed Orally Active Metoprolol Succinate ER 50 MG Tablet Extended Release 24 Hour 1/2 tab in am and 1 tab in pm Orally; Duration: 90 days Active Claritin 10 MG Tablet 1 tablet Orally Once a day Active Immunizations Vaccine [...] : New immunization record ,immstatus : Complete Influenza, high dose seasonal Unknown 04/05/2020 Administered ,sourcename : Historical information -from public agency Source VFC Code: : Influenza, high dose seasonal IM Intramuscular 04/22/2024 Administered ,sourcename : N ew immunization record ,immstatus : Complete Influenza, high dose seasonal IM Intramuscular 04/19/2025 Administered Pneumococcal polysaccharide PPV23 Unknown 03/06/2013 Administered ,sourcename : Historical information -from public agency Source VFC Code: : Pneumococcal conjugate PCV 13 Unknown 08/06/2014 Administered ,sourcename : Historical information -from public agency Source VFC Code: : [employer] Covid-19 Vaccine 1st dose IM Intramuscular 05/11/2024 [...] Social Info Options Details Miscellaneous: Occupation: retired Migrated Social History Migrated Social History Alcohol history:Never drinks alcohol , Tobacco history:Never smoker , Employment:Retired , Marital status: Problems Problem Type SNOMED Code ICD Code Onset Dates Problem Status W/U Status Risk Notes Problem Acquired hammer toe of right foot (4303648274264172) Other hammer toe(s) (acquired), right foot (M20.41) Active confirmed Problem Acquired hammer toe of left foot (6713527992874850) Other hammer toe(s) (acquired), left foot (M20.42) Active confirmed Problem Anxiety disorder (237288210) Anxiety disorder, unspecified (F41.9) 01/04/20 21 Active confirmed Problem Palpitations (86010701) Palpitations (R00.2) 02/08/20 24 Active confirmed Problem Pain of left knee joint (finding) (966066862462102) Pain in left knee (M25.562) 07/15/19 24 Active confirmed Problem Vitamin D deficiency (19865189) Vitamin D deficiency, unspecified (E55.9) 04/19/20 21 Active confirmed Problem Hypothyroidism (65691468) Hypothyroidism, unspecified (E03.9) 01/12/20 21 Active confirmed Problem Interstitial emphysema (32581456) Interstitial emphysema (518.1) 08/16/19 19 Active confirmed Problem Postmenopausal state (37713495) Asymptomatic menopause (Z78.0) Active confirmed Problem Low back pain (finding) (400354837) Lumbar back pain (M54.50) Active confirmed Problem Frequent headache (finding) (806897731) Frequent headaches (R51.9) Active confirmed Problem Primary insomnia (7297709) Primary insomnia (F51.01) Active confirmed Problem Right side sciatica (104432429471622) Sciatica, right side (M54.31) 04/05/20 24 Active confirmed Problem Cervicalgia (30815202) Cervicalgia (M54.2) 04/19/20 21 Active confirmed Problem Spinal stenosis (56039613) Spinal stenosis, site unspecified (M48.00) 05/02/20 24 Active confirmed Lumbar Problem Scoliosis (401806013) Scoliosis, unspecified (M41.9) 04/22/20 24 Active confirmed Problem Gastro-esophageal reflux disease without esophagitis (510800122) Gastro-esophagea l reflux disease without esophagitis (K21.9) 01/04/20 21 Active confirmed Problem 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, 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) 01/03/20 23 Active confirmed Problem Essential hypertension (23952870) Essential (primary) hypertension (I10) 01/04/20 21 Active confirmed Problem Rheumatic tricuspid insufficiency (55414397) Rheumatic tricuspid insufficiency (I07.1) 01/29/20 23 Active confirmed Problem Insomnia (481827388) Insomnia, unspecified (G47.00) 10/25/19 22 Active confirmed Problem Hyperlipidemia (60498081) Hyperlipidemia, unspecified (E78.5) 04/19/20 21 Active confirmed Problem Malignant neoplasm of female breast (965890529) Malignant neoplasm of unspecified site of unspecified female breast (C50.919) 04/19/20 21 Active confirmed Problem Menopausal symptom (40089253) Symptomatic menopausal or female climacteric states (627.2) 10/30/19 17 Active confirmed Problem Prediabetes (161040686) Prediabetes (R73.03) 01/03/20 23 Active confirmed Problem Spinal stenosis of lumbar region (14275742) Spinal stenosis, lumbar region without neurogenic claudication (M48.061) 09/12/19 23 Active confirmed Problem History of malignant neoplasm (468661589) Personal history of malignant neoplasm, unspecified (Z85.9) 05/02/20 24 Active confirmed Problem Personal history of primary malignant neoplasm of breast (626135482) Personal history of malignant neoplasm of breast (Z85.3) 12/11/19 22 Active confirmed Problem Age-related osteoporosis (536008608) Age-related osteoporosis without current pathological fracture (M81.0) 11/10/19 24 Active confirmed Vital Signs Heart Rate 67 /min 02/28/2025 Temperature 97.3 degrees Fahrenheit 02/28/2025 Respiratory Rate 18 /min 02/28/2025 Blood pressure diastolic 62 mm Hg 02/28/2025 Oximetry 96 % 02/28/2025 Height-cm 162.56 cm 02/28/2025 Weight-kg 84.1 kg 02/28/2025 Height 64.00 in 02/28/2025 Blood pressure systolic 122 mm Hg 02/28/2025 Weight 185.4 lbs 02/28/2025 BMI 31.82 kg/m2 02/28/2025 Encounters Encounter Location Date Provider Diagnosis [address] [address] 05/19/2024 Evelyn Beckert Hyperlipidemia, unspecified E78.5 ; Encounter for immunization [...] quadrant pain R10.11 and Headache, unspecified R51.[address] [address] 05/24/2024 Provider Migration Spinal stenosis, lumbar region without neurogenic claudication M48.061 and Headache, unspecified R51.[address] [address] 06/06/2024 Dr. Safia Epstein [address] [address] 04/19/2025 Dr. Safia Epstein Encounter for immunization Z23 [address] [address] 07/01/2024 Dr. Safia Epstein Anxiety disorder, unspecified F41.9 ; Essential (primary) hypertension I10 ; Primary insomnia F51.01 ; Other specified disorders of bone density and structure, unspecified site M85.80 and Asymptomatic menopausal state Z78.[address] [address] 08/31/2024 Reynold Ochoa Hammer toe of second toe of left foot M20.[address] [address] 09/07/2024 Dr. Safia Epstein Cellulitis of left toe L03.032 ; Ingrown nail L60.0 ; Other hammer toe(s) (acquired), right foot M20.41 ; Other hammer toe(s) (acquired), left foot M20.42 and Actinic keratosis L57.[address] [address] 09/16/2024 Dr. Safia Epstein Paresthesia R20.2 ; Ingrown nail L60.0 and Essential (primary) hypertension I10 [address] [address] 10/28/2024 Dr. Safia Epstein Essential (primary) hypertension I10 [address] [address] 11/22/2024 Evelyn Hurtado Essential (primary) hypertension I10 ; Anxiety disorder, unspecified F41.9 ; Hypothyroidism, unspecified E03.9 and Gastro-esophageal reflux disease without esophagitis K21.[address] [address] 02/01/2025 Dr. Anurag Suero Acute UTI N39.0 and Dysuria R30.[address] [address] 02/28/2025 Evelyn Becknathalia Essential (primary) hypertension I10 ; Encounter for wellness examination Z00.00 ; Anxiety disorder, unspecified F41.9 ; Hypothyroidism, unspecified E03.9 ; History of breast cancer Z85.3 ; Gastro-esophageal reflux disease without esophagitis K21.9 ; Atypical squamoproliferative skin lesion D49.2 ; Lumbar back pain M54.50 ; Prediabetes R73.03 ; Frequent headaches R51.9 ; Asymptomatic menopause Z78.0 and Hyperlipidemia, unspecified E78.[address] [address] 06/04/2024 Provider Migration [address] [address] 06/05/2024 Provider Migration [address] [address] 06/21/2024 Dr. Safia Epstein [address] [address] 07/19/2024 Evelyn Hurtado [address] [address] 08/12/2024 Dr. Safia Epstein [address] [address] 08/16/2024 Dr. Safia Epstein [address] [address] 08/22/2024 Dr. Safia Epstein [address] [address] 09/07/2024 Dr. Safia Epstein [address] [address] 09/29/2024 Dr. Safia Epstein [address] [address] 12/19/2024 Dr. Safia Epstein [address] [address] 01/13/2025 Dr. Safia Epstein Essential (primary) hypertension I10 [address] [address] 01/17/2025 Dr. Safia Epstein [address] [address] 02/04/2025 Dr. Anurag Suero [address] [address] 02/23/2025 Evelyn Hurtado Hypothyroidism, unspecified E03.9 ; Vitamin D deficiency, unspecified E55.9 ; Hyperlipidemia, unspecified E78.5 ; Essential (primary) hypertension I10 and Prediabetes R73.[address] [address] 02/27/2025 Dr. Safia Epstein Assessments Encounter Date Diagnosis (ICD Code) Assessment Notes Treatment Notes Treatment Clinical Notes Section Notes 02/23/2025 Hypothyroidism, unspecified (ICD-10 - E03.9) 02/23/2025 Vitamin D deficiency , unspecified (ICD-10 - E55.9) 07/01/2024 Essential (primary) hypertension (ICD-10 - I10) 01/13/2025 Essential (primary) hypertension (ICD-10 - I10) 10/28/2024 Essential (primary) hypertension (ICD-10 - I10) 02/01/2025 [...] methods for contraception for the next month. 11/22/2024 Essential (primary) hypertension (ICD-10 - I10) -She brought in RPM BP cuff to compare readings with manual BP cuff. It is almost the same reading. BP has been on avg SBP 120-140, DBP 60-70s. Will have her continue to monitor BP through RPM. No changes with losartan and metoprolol 02/28/2025 Essential (primary) hypertension (ICD-10 - I10) -BP is doing good. No changes with losartan and metoprolol 02/28/2025 Encounter for miley ss examination (ICD-10 - Z00.00) Reviewed labwork. UT w/ mammogram and cologard. Due for bone density. She scored good on cognitive testing and depression screening. She is UTD with all vaccines except Covid and she doesn't want to do any more. She has a living will and POA 09/16/2024 Paresthesia (ICD-10 - R20.2) 09/16/2024 Ingrown nail (ICD-10 - L60.0) 09/07/2024 Cellulitis of left t oe (ICD-10 - L03.032) stop cephalexin start augmentin [...] 07/01/2024 Anxiety disorder, unspecified (ICD-10 - F41.9) 05/24/2024 Spinal stenosis, lumbar region without neurogenic claudication (ICD-10 - M48.061) 05/24/2024 Headache, unspecifie d (ICD-10 - R51.9) 05/19/2024 Other obesity due to excess calories (ICD-10 - E66.09) 05/19/2024 Hyperlipidemia, unspecified (ICD-10 - E78.5) 05/19/2024 Anxiety disorder, unspecified (ICD-10 - F41.9) 05/19/2024 Rheumatic tricuspid insufficiency (ICD-10 - I07.1) 05/19/2024 Essential (primary) hypertension (ICD-10 - I10) 05/19/2024 Interstitial pulmona ry disease, unspecified (ICD-10 - J84.9) 05/19/2024 Gastro-esophageal reflux disease without esophagitis (ICD-10 - K21.9) 05/19/2024 Age-related osteoporosis without current pathological fracture (ICD-10 - M81.0) 05/19/2024 Urinary tract infection, site not specified (ICD-10 - N39.0) 05/19/2024 Right upper quadrant pain (ICD-10 - R10.11) 05/19/2024 Encounter for genera l adult medical examination without abnormal findings (ICD-10 - Z00.00) 05/19/2024 Encounter for screening for malignant neoplasm of colon (ICD-10 - Z12.11) 05/19/2024 Encounter for immunization (ICD-10 - Z23) 05/19/2024 Dependent relative needing care at home (ICD-10 - Z63.6) 05/19/2024 Spinal stenosis, lumbar region without neurogenic claudication (ICD-10 - M48.061) 05/19/2024 Headache, unspecifie d (ICD-10 - R51.9) 04/19/2025 Encounter for immunization (ICD-10 - Z23) 09/16/2024 Essential (primary) hypertension (ICD-10 - I10) 07/01/2024 Primary insomnia (ICD-10 - F51.01) 11/22/2024 Anxiety disorder, unspecified (ICD-10 - F41.9) - Stress levels are high with ill and having to manage all things by herself, but anxiety is being managed with current medication regimen.- Continue current medication of buspar BID with PRN alprazolam 02/28/2025 Anxiety disorder, unspecified (ICD-10 - F41.9) - Stress levels are high with ill and having to manage all things by herself, but anxiety is being managed with current medication regimen.- Continue current medication of buspar BID with PRN alprazolam 09/07/2024 Other hammer toe(s) (acquired), right foot (ICD-10 - M20.41) 02/23/2025 Hyperlipidemia, unspecified (ICD-10 - E78.5) 02/23/2025 Essential (primary) hypertension (ICD-10 - I10) 09/07/2024 Other hammer toe(s) (acquired), left foot (ICD-10 - M20.42) use toe spacer to protect toes from touching. 07/01/2024 Other specified disorders of bone density and structure, unspecified site (ICD-10 - M85.80) 02/28/2025 Hypothyroidism, unspecified (ICD-10 - E03.9) -TSH and Free T4 are normal. Continue levothyroxine 100mcg daily 11/22/2024 Hypothyroidism, unspecified (ICD-10 - E03.9) 11/22/2024 [...] the office with any questions or concerns. 02/28/2025 History of breast cancer (ICD-10 - Z85.3) -Mammogram was done 01/20/25 and was normal. Follows with oncology, Switched from anastrozole to tamoxifen 07/01/2024 Asymptomatic menopausal state (ICD-10 - Z78.0) 02/23/2025 Prediabetes (ICD-10 - R73.03) 02/28/2025 Gastro-esophageal reflux disease without esophagitis (ICD-10 - K21.9) Reflux controlled with pantoprazole 02/28/2025 Atypical squamoproliferative skin lesion (ICD-10 - D49.2) -Horn like lesion-had cryo performed to that lesion in office today -Advised to allow it to go through it's process, hopeful in 2 weeks it will blister, dry up, and peel away revealing smooth, healed skin. Montitor for redness or infection. -Prescribed Efudex to skin lesion on nose. Advised to wait until winter to use favian that time. 02/28/2025 Lumbar back pain (ICD-10 - M54.50) - Back pain managed with physical therapy; no acute findings. Call if any concerns. 02/28/2025 Prediabetes (ICD-10 - R73.03) A1C is 6.1 . Will have her continue to watch simple carbohydrates and sugars 02/28/2025 Frequent headaches (ICD-10 - R51.9) - Headaches likely related to sinus issues and environmental triggers (wind, fans); possible stress component. - Patient reports headaches about five times per week, often pounding, and sometimes associated with stress. Tylenol provides relief. -Has had imaging of head in the past year and it was unremarkable 02/28/2025 Asymptomatic menopau se (ICD-10 - Z78.0) -Due for bone density. Will fax order to [facility] 02/28/2025 Hyperlipidemia, unspecified (ICD-10 - E78.5) -Elevated lipids -Does not tolerat statins. Cardiology doesn't feels she needs statin due to age. 07/01/2024 Other Hypertension: - Blood pressure fluctuates, [...] mg, taken twice daily. Plan Of Treatment Pending Test Test Name Order Date DEXA Hip and Spine 02/28/2025 Next Appt Details Provider Name:Evelyn balbuena, 08/29/2025 10:15:00 AM, [address] [facility], [place], [address], [phone] Insurance Providers Payer Name Payer Address Payer Phone Subscriber Number Group Number Insured Name Patient Relationship to Insured Coverage Start Date Coverage End Date [employer] Advantage Ppo [address] [place] [address] [id number] Mary Lou Patel Self - patient is the insured 4 Medical (General) History Medical History History ICD Code Hypothyroidism, unspecified E03.9 Vitamin D deficiency, unspecified E55.9 Hyperlipidemia, unspecified E78.5 Anxiety disorder, unspecified F41.9 Insomnia, unspecified G47.00 Rheumatic tricuspid insufficiency I07.1 Essential (primary) hypertension I10 Interstitial pulmonary disease, unspecif ied J84.9 Gastro-esophageal reflux disease without esophagitis K21.9 Scoliosis, unspecified M41.9 Spinal stenosis, site unspecified M48.00 Sciatica, right side M54.31 Age-related osteoporosis without current pathological fracture M81.0 Personal history of malignant neoplasm o f breast Z85.3 Personal history of malignant neoplasm, unspecified Z85.9 Spinal stenosis, lumbar region without n eurogenic claudication M48.061 Prediabetes R73.03 Interstitial emphysema 518.1 Symptomatic menopausal or female climact sole states 627.2 Primary insomnia F51.01 Surgical History Surgery Date(Month/Year) (18559) BIOPSY/REMOVAL LYMPH NODES ,note s : left - malignant (15507) COMP SCREEN MAMMOGRAM ADD-ON ,no rahul : Nl. repeat in 1 yr. (45721) BONE IMAGING WHOLE BODY 04/16/20 Tubal ligation 1975 () REMOVAL OF BREAST LESION ,notes : right - Benign tumor 1989 (87869) CARPAL TUNNEL SURGERY ,notes : B ilateral 2003 (82107) COLOGUARD SCREENING ,notes : neg ative 09/2020 ([id number]) DOPPLER ECHO EXAM HE ART ,notes : Mild Tricups. regurg. EF 67% 10/2017 colonoscopy ,notes : Nl 01/2010 (57592) DXA BONE DENSITY STUDY ,notes : Severe osteopenia 02/2021 ([id number]) REMOVAL OF GALLBLADDER 03/2012 ([id number]) UPPER GI ENDOSCOPY P ERFORMED ,notes : distal esophageal stenosis, Sm Hiatal hernia- Repeat in 2 years 04/02/2018
--- OUTSIDE RECORDS SUMMARY | 2025-05-17 10:17 | XMS_ITS | Encounter Summary ---
Author Organization [facility] Address 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 [facility] [place] [address] PCP - General Family Practice 10/28/19 documented as of this encounter
--- OUTSIDE RECORDS SUMMARY | 2025-05-17 10:17 | XMS_ITS | Clinical Summary ---
Author Organization [facility] Address [address] [place] [address] Care Team Providers Care Passenger Rate Clerk Name Role Phone Safia Epstein MD Primary Care Provider Nancy Monson APNP Unavailable Unavailab gunjan Musa MD, Sylvester Unavailable [phone] Evelyn Hurtado [facility]- Unavailable [phone] Allergies Active Allergy Reactions Criticality Noted Date [...] 015, 05/20/2015, 05/06/2015 COVID-19 Vaccine ( season) 2025 05/11/2024, 12/05/2021, 05/08/2021, Additional history exists Influenza Adult (#1) 2025 04/22/2024, 04/17/2022, 04/06/2019, Additional history exists DTaP, Tdap and Td Vaccines (2 - Td or Tdap) 05/19/2034 05/19/2024, 11/03/2010 Pneumococcal Vaccine: 50+ Years Completed 06/05/2015, 03/06/2013 RSV Immunization or 60+ Years Completed 05/06/2023 Dexa Scan (General) Completed 06/20/2024 Hepatitis A Vaccines Aged Out No long er eligible based on patient's age to complete this topic Meningococcal B Vaccine Aged Out No l [...] BONE DENSITY/DEXA Routine 06/20/2024 1:3 6 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 Referred By: JAMA OLIVA Interpreted By: Naga Wheat DO, 06/20/2024 10:59 PM Narrative 06/20/2024 11:02 PM CANDY FORMING MACHINE OPERATOR [facility] [address] [place] [address] Examination: DEXA Bone densitometry Clinical history: Postmenopausal. [...] Procedure Note Naga Wheat DO - 06/20/2024 [facility] [address] [place] [address] Examination: DEXA Bone densitometry Clinical history: Postmenopausal. [...] Recently Relevant to Health Maintenance Insurance [employer] MEDICARE Care Teams Passenger Rate Clerk Relationship Specialty Start Date End Date Safia Epstein MD [address] [place] [id number] PCP - General FAMILY PRACTICE 10/22/18 Nancy Monson APNP [address] [place] [address] [place] [employer] NURSE PRACTITIONER 01/08/21 Sylvester Callejas MD [address] [place] [id number] [place] [employer] INTERVENTIONAL CARDIOLOGY 01/08/21 Evelyn Hurtado, [facility]- [address] [place] [id number] [facility] 11/18/23
[2025-05-17 12:09] LABS: Alanine Aminotransferase 13 U/L (6-35); Albumin Level 3.8 g/dL (3.5-5.1); Alkaline Phosphatase 62 U/L (38-126); Anion Gap 4 mmol/L (4-12); Aspartate Amino Transferase 21 U/L (14-36); Bilirubin,Total 0.4 mg/dL (0.2-1.3); Blood Urea Nitrogen 19 mg/dL (7-17); Calcium 8.9 mg/dL (8.4-10.2); Carbon Dioxide 29 mmol/L (22-30); Chloride 105 mmol/L (98-107); Estimated Glomerular Filt Rate > 60; Glucose 102 mg/dL (65-110); Potassium 3.9 mmol/L (3.4-5.0); Sodium 138 mmol/L (137-145); Total Protein 6.9 g/dL (6.3-8.2)
== END 2025-05-17 09:28 | disposition home or self-care (01) ==
LOC: ANHLAB 09:27
PROVIDERS: PCP Family Medicine; Visit Provider Internal Medicine Hematology & Oncology
DX: C50.412 Malignant neoplasm of upper-outer quadrant of left female breast (principal); Z17.0 Estrogen receptor positive status [ER+]
CPT/HCPCS: 36415; 80053; 85025; 86300

== ENCOUNTER 2025-06-12 10:23 | Outpatient (CLI) | payer MEDICARE, SELFPAY ==
--- NOTE | ~2025-06-12 | CT_ITS ---
EXAMINATION:CT chest high resolution w con DATE: 06/12/2025 10:45 INDICATION: Interstitial pulmonary disease TECHNIQUE: Computed tomography (CT) of the chest was performed without intravenous contrast. The dose-length product (DLP) was 219.29 mGy-cm. COMPARISON: FINDINGS: Mild progression in bilateral lower lobe peripheral reticulation in fibrosing changes with subpleural sparing which can be seen in with NSIP associated connective tissue or chronic inflammatory diseases. The lungs otherwise are stable. Central large airways are patent. No bulky lymphadenopathy masses. Heart and great vessels stable. The bones appear intact. No acute process seen in the visualized portion of the upper abdomen. Cholecystectomy clips noted. 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 Reviewed, dictated and finalized at location A. ESS ASSOCIATE IMPRESSION: Mild progression in findings consistent with fibrosing form of nonspecific inte rstitial pneumonia or NSIP with subpleural sparing which can often be seen with connective tissue diseases.
== END 2025-06-12 10:24 | disposition home or self-care (01) ==
PROVIDERS: PCP Family Medicine; Visit Provider Nurse Practitioner Family
DX: J84.9 Interstitial pulmonary disease, unspecified (principal)
CPT/HCPCS: 71260; Q9967